=== PATIENT | female | born 1940 | race Caucasian/White ===

== ENCOUNTER → 2017-07-14 | Outpatient (POV) | payer MEDICARE, BC, OTHER, SELFPAY | PROVIDERS: Visit Provider Internal Medicine | DX: I48.2 Chronic atrial fibrillation (principal); I10 Essential (primary) hypertension; R25.2 Cramp and spasm | CPT/HCPCS: 93005 ==

== ENCOUNTER → 2017-07-15 | Outpatient (CLI) | payer MEDICARE, OTHER, SELFPAY | PROVIDERS: Visit Provider Internal Medicine | DX: I48.0 Paroxysmal atrial fibrillation (principal); I10 Essential (primary) hypertension; R25.2 Cramp and spasm | CPT/HCPCS: 36415; 80048 ==

== ENCOUNTER 2017-07-31 08:24 | Outpatient (CLI) | payer MEDICARE, OTHER, SELFPAY ==
[2017-07-31 13:49] LABS: PHA INR Fingerstick 2.6 (0.9-1.1)
== END 2017-07-31 13:56 | disposition home or self-care (01) ==
LOC: ACC 08:31
PROVIDERS: PCP Internal Medicine Adolescent Medicine; Visit Provider Internal Medicine Cardiovascular Disease
DX: Z79.01 Long term (current) use of anticoagulants (principal); I48.91 Unspecified atrial fibrillation; Z51.81 Encounter for therapeutic drug level monitoring
CPT/HCPCS: 85610

== ENCOUNTER → 2017-09-11 08:18 | Outpatient (CLI) | payer MEDICARE, OTHER, SELFPAY | END | disposition home or self-care (01) | PROVIDERS: PCP Internal Medicine Adolescent Medicine; Visit Provider Internal Medicine Cardiovascular Disease | DX: Z79.01 Long term (current) use of anticoagulants (principal); Z51.81 Encounter for therapeutic drug level monitoring; I48.91 Unspecified atrial fibrillation | CPT/HCPCS: 85610 ==

== ENCOUNTER → 2017-10-03 07:53 | Outpatient (CLI) | payer MEDICARE, OTHER, SELFPAY ==
[2017-10-03 09:20] LABS: Alanine Aminotransferase 27 U/L (12-78); Potassium 4.2 mmoL/L (3.5-5.1); Thyroid Stimulating Hormone 0.42 uIU/ml (0.358-3.740)
[2017-10-03 09:34] LABS: Albumin Level 4.1 gm/dL (3.4-5.0); Albumin/Globulin Ratio 1.2 (1.1-1.8); Alkaline Phosphatase 30 U/L (46-116); Anion Gap 12.2 mEq/L (5-15); Aspartate Amino Transferase 28 U/L (15-37); Bilirubin,Total 0.3 mg/dL (0.2-1.0); Blood Urea Nitrogen 17 mg/dL (7-18); Calcium 9.4 mg/dL (8.5-10.1); Carbon Dioxide 28 mmol/L (21.0-32.0); Chloride 103 mmol/L (98-107); Chol/HDL Ratio 3.7 (1-3.5); Cholesterol 146 mg/dL (140-200); Creatinine,Serum 1.22 mg/dL (0.55-1.02); Estimated Glomerular Filt Rate 43 ml/min (>60); GFR (African American) 52 ML/MIN (>60); Globulin 3.5 gm/dl (1.3-3.2); Glucose 88 mg/dL (74-106); HDL Cholesterol 39 mg/dL (29-89); LDL Cholesterol 85 mg/dL (0-130); Sodium 139 mmol/L (136-145); Total Protein,Serum 7.6 gm/dL (6.4-8.2); Triglycerides 109 mg/dL (30-200); VLDL Cholesterol 22 mg/dL (0-40)
== END ==
PROVIDERS: Visit Provider Internal Medicine Adolescent Medicine
DX: E78.5 Hyperlipidemia, unspecified (principal); E03.9 Hypothyroidism, unspecified
CPT/HCPCS: 36415; 80053; 80061; 84443

== ENCOUNTER 2017-10-16 08:22 | Outpatient (CLI) | payer MEDICARE, OTHER, SELFPAY ==
[2017-10-16 10:49] LABS: PHA INR Fingerstick 1.9 (0.9-1.1)
== END 2017-10-16 10:50 | disposition home or self-care (01) ==
PROVIDERS: PCP Internal Medicine Adolescent Medicine; Visit Provider Internal Medicine Cardiovascular Disease
DX: Z79.01 Long term (current) use of anticoagulants (principal); Z51.81 Encounter for therapeutic drug level monitoring; I48.91 Unspecified atrial fibrillation
CPT/HCPCS: 85610; 99211; G0463

== ENCOUNTER 2017-11-13 08:22 | Outpatient (CLI) | payer MEDICARE, OTHER, SELFPAY ==
[2017-11-13 11:46] LABS: PHA INR Fingerstick 2.1 (0.9-1.1)
== END 2017-11-13 11:50 | disposition home or self-care (01) ==
LOC: ACC 08:23
PROVIDERS: PCP Internal Medicine Adolescent Medicine; Visit Provider Physician Assistant
DX: Z79.01 Long term (current) use of anticoagulants (principal); Z51.81 Encounter for therapeutic drug level monitoring; I48.91 Unspecified atrial fibrillation
CPT/HCPCS: 85610; 99211; G0463

== ENCOUNTER 2017-12-25 08:21 | Outpatient (CLI) | payer MEDICARE, OTHER, SELFPAY ==
[2017-12-25 11:18] LABS: PHA INR Fingerstick 2.5 (0.9-1.1)
== END 2017-12-25 13:04 | disposition home or self-care (01) ==
LOC: ACC 08:25
PROVIDERS: PCP Internal Medicine Adolescent Medicine; Visit Provider Physician Assistant
DX: Z79.01 Long term (current) use of anticoagulants (principal); Z51.81 Encounter for therapeutic drug level monitoring; I48.91 Unspecified atrial fibrillation
CPT/HCPCS: 85610; 99211; G0463

== ENCOUNTER 2018-02-05 08:32 | Outpatient (CLI) | payer MEDICARE, OTHER, SELFPAY ==
[2018-02-05 16:31] LABS: PHA INR Fingerstick 2.2 (0.9-1.1)
== END 2018-02-05 16:51 | disposition home or self-care (01) ==
LOC: ACC 08:34
PROVIDERS: PCP Internal Medicine Adolescent Medicine; Visit Provider Physician Assistant
DX: Z79.01 Long term (current) use of anticoagulants (principal); Z51.81 Encounter for therapeutic drug level monitoring; I48.2 Chronic atrial fibrillation
CPT/HCPCS: 85610; 99211; G0463

== ENCOUNTER 2018-03-19 08:23 | Outpatient (CLI) | payer MEDICARE, OTHER, SELFPAY ==
[2018-03-19 10:57] LABS: PHA INR Fingerstick 2.2 (0.9-1.1)
== END 2018-03-19 11:16 | disposition home or self-care (01) ==
LOC: ACC 08:24
PROVIDERS: PCP Internal Medicine Adolescent Medicine; Visit Provider Internal Medicine Adolescent Medicine
DX: Z79.01 Long term (current) use of anticoagulants (principal); Z51.81 Encounter for therapeutic drug level monitoring; I48.91 Unspecified atrial fibrillation
CPT/HCPCS: 85610; 99211; G0463

== ENCOUNTER → 2018-04-01 07:44 | Outpatient (CLI) | payer MEDICARE, OTHER, SELFPAY ==
--- NOTE | 2018-04-01 07:47 | US_ITS ---
US abdomen complete HISTORY: ITS.REASON: CAPUT MEDUSAE ORDERING PHYSICIAN: Dillon Mcmahan MD PATIENT AGE: 78 years COMPARISON: No relevant FINDINGS: PANCREAS:Unremarkable. No mass evident.. No ductal dilatation LIVER:No focal liver lesions demonstrated. . The liver is generous size, perhaps slightly enlarged but homogeneous with mild diffuse upper normal echogenicity-May reflect some early fatty changes. No intrahepatic biliary ductal dilatation evident . Portal vein normal diameter. With normal direction flow. Common duct normal diameter 3.5 mm at hilum of liver. RIGHT KIDNEY 9.4 x 4.4 cm:.. Normal size and echogenicity. No hydronephrosis LEFT KIDNEY:10 cm length. No hydronephrosis. Normal size and echogenicity. Cortex fairly well-maintained in both kidneys with only borderline thinning GALLBLADDER:Surgically absent. SPLEEN:Normal size in appearance. 10 cm length.. ASCITES:None demonstrated. AORTA: Atherosclerotic calcification & atheromatous plaque but No evidence of aneurysmal dilatation. ABNORMAL Multiple Dilated Venous Structure/Varicosities ,just beneath the skin throughout anterior abdominal SQ tissue.-Compatible with caput medusa history. Largest of these measuring up to 5.5 mm diameter This pattern typically associated with portal hypertension but I do not see a dilated portal vein, nor splenomegaly, nor obvious portal venous collaterals about the liver/spleen region on the submitted images;, nor did the technologist MW during real-time scanning. The liver is perhaps slightly enlarged but homogeneous with upper normal echogenicity. A much less common causes of caput medusa is inferior vena cava restriction or obstruction but no history lower extremity swelling given to suggest latter. . A CT abdomen with 100 cc Isovue-370 contrast and 2 minute & if need be 5 minute delayed images may be of benefit to further evaluate. These appear evaluate liver, spleen and survey pattern IMPRESSION: Prominent dilated venous structures just beneath the skin at the anterior abdominal wall compatible with caput medusa. However the portal vein is normal caliber at liver, spleen normal size & no obvious portal venous collaterals observed with real-time scanning. Note comments in text The liver is generous in size, mildly enlarged but homogeneous. Slight diffuse increased echogenicity suggestive mild diffuse fatty change . No ascites Suggest CT abdomen/pelvis with contrast to include delayed images at 3 minutes, & possibly 5 minutes (the goal for this CT is enhance these dilated superficial venous structures/ caput medusa. More importantly to enhance & visualized portal vein, liver, & IVC)
== END ==
PROVIDERS: PCP Internal Medicine Adolescent Medicine; Visit Provider Internal Medicine Adolescent Medicine
DX: I86.8 Varicose veins of other specified sites (principal)
CPT/HCPCS: 76700

== ENCOUNTER 2018-04-23 08:14 | Outpatient (CLI) | payer MEDICARE, OTHER, SELFPAY ==
[2018-04-23 10:42] LABS: PHA INR Fingerstick 2.1 (0.9-1.1)
== END 2018-04-23 10:43 | disposition home or self-care (01) ==
LOC: ACC 08:16
PROVIDERS: PCP Internal Medicine Adolescent Medicine; Visit Provider Internal Medicine Adolescent Medicine
DX: Z51.81 Encounter for therapeutic drug level monitoring (principal); Z79.01 Long term (current) use of anticoagulants; I48.91 Unspecified atrial fibrillation
CPT/HCPCS: 85610; 99211; G0463

== ENCOUNTER 2018-06-04 08:20 | Outpatient (CLI) | payer MEDICARE, OTHER, SELFPAY ==
[2018-06-04 13:26] LABS: PHA INR Fingerstick 2.5 (0.9-1.1)
== END 2018-06-04 16:07 | disposition home or self-care (01) ==
PROVIDERS: PCP Internal Medicine Adolescent Medicine; Visit Provider Internal Medicine Adolescent Medicine
DX: Z51.81 Encounter for therapeutic drug level monitoring (principal); Z79.01 Long term (current) use of anticoagulants; I48.91 Unspecified atrial fibrillation
CPT/HCPCS: 85610; 99211; G0463

== ENCOUNTER → 2018-07-15 07:24 | Outpatient (CLI) | payer MEDICARE, OTHER, SELFPAY ==
[2018-07-15 08:06] LABS: Basophils # 0.1 K/mm3 (0-0.2); Basophils % 0.6 % (0.1-2.0); Eosinophils # 0.4 K/mm3 (0.0-0.4); Eosinophils % 4.7 % (0.1-12.0); Hematocrit 42.1 % (37.0-47.0); Hemoglobin 13.6 g/dL (12.2-16.2); Lymphocytes # 1.9 K/mm3 (0.7-4.5); Lymphocytes % 23.9 % (10-50); Mean Corpuscular HGB Conc 32.3 g/dL (31.8-35.4); Mean Corpuscular Volume 92.7 fl (81-99); Mean Platelet Volume 7.3 fl (7.4-10.4); Monocytes # 0.5 K/mm3 (0.1-1.0); Monocytes % 5.7 % (1.7-9.3); Neutrophils # 5.2 K/mm3 (1.8-7.8); Neutrophils % 64.9 % (37.0-80.0); Platelet Count 279 K/mm3 (142-424); Red Blood Count 4.55 M/mm3 (4.20-5.40); Red Cell Distribution Width 13.1 % (11.5-17.5)
[2018-07-15 08:23] LABS: Alanine Aminotransferase 26 U/L (12-78); Albumin Level 4.1 gm/dL (3.4-5.0); Albumin/Globulin Ratio 1.2 (1.1-1.8); Alkaline Phosphatase 32 U/L (46-116); Anion Gap 12.2 mEq/L (5-15); Aspartate Amino Transferase 27 U/L (15-37); Bilirubin,Total 0.4 mg/dL (0.2-1.0); Blood Urea Nitrogen 16 mg/dL (7-18); Calcium 9.4 mg/dL (8.5-10.1); Carbon Dioxide 32 mmol/L (21.0-32.0); Chloride 104 mmol/L (98-107); Creatinine,Serum 1.27 mg/dL (0.55-1.02); Estimated Glomerular Filt Rate 41 ml/min (>60); GFR (African American) 49 ML/MIN (>60); Globulin 3.4 gm/dl (1.3-3.2); Glucose 104 mg/dL (74-106); Potassium 4.2 mmoL/L (3.5-5.1); Sodium 144 mmol/L (136-145); T4 (Thyroxine) 13.5 ug/dl (4.7-13.3); Thyroid Stimulating Hormone 0.64 uIU/ml (0.358-3.740); Total Protein,Serum 7.5 gm/dL (6.4-8.2); Triiodothryronine (T3) Uptake 37 % (31-39)
[2018-07-16 16:17] LABS: Vitamin B12 594 pg/mL (232-1245); Vitamin D 25 Hydroxy 37.9 ng/mL (30.0-100.0)
[2018-07-22 05:19] LABS: Methylmalonic Acid 854 nmol/L (0-378)
== END ==
PROVIDERS: Visit Provider Internal Medicine Adolescent Medicine
DX: E03.9 Hypothyroidism, unspecified (principal); R53.81 Other malaise; R41.3 Other amnesia; I48.91 Unspecified atrial fibrillation
CPT/HCPCS: 36415; 80053; 82131; 82607; 82652; 84436; 84443; 84479; 85025

== ENCOUNTER 2018-07-16 08:29 | Outpatient (CLI) | payer MEDICARE, OTHER, SELFPAY ==
[2018-07-16 10:27] LABS: PHA INR Fingerstick 2.5 (0.9-1.1)
== END 2018-07-16 10:54 | disposition home or self-care (01) ==
LOC: ACC 08:30
PROVIDERS: PCP Internal Medicine Adolescent Medicine; Visit Provider Internal Medicine Adolescent Medicine
DX: Z51.81 Encounter for therapeutic drug level monitoring (principal); Z79.01 Long term (current) use of anticoagulants; I48.91 Unspecified atrial fibrillation
CPT/HCPCS: 85610; 99211; G0463

== ENCOUNTER 2018-08-06 08:20 | Outpatient (CLI) | payer MEDICARE, OTHER, SELFPAY ==
[2018-08-06 09:35] LABS: PHA INR Fingerstick 2.1 (0.9-1.1)
== END 2018-08-06 09:36 | disposition home or self-care (01) ==
LOC: ACC 08:22
PROVIDERS: PCP Internal Medicine Adolescent Medicine; Visit Provider Internal Medicine Adolescent Medicine
DX: Z51.81 Encounter for therapeutic drug level monitoring (principal); Z79.01 Long term (current) use of anticoagulants; I48.91 Unspecified atrial fibrillation
CPT/HCPCS: 85610; 99211; G0463

== ENCOUNTER 2018-09-17 08:27 | Outpatient (CLI) | payer MEDICARE, OTHER, SELFPAY ==
[2018-09-17 16:04] LABS: PHA INR Fingerstick 1.6 (0.9-1.1)
== END 2018-09-17 16:09 | disposition home or self-care (01) ==
LOC: ACC 08:29
PROVIDERS: PCP Internal Medicine Adolescent Medicine; Visit Provider Internal Medicine Adolescent Medicine
DX: Z51.81 Encounter for therapeutic drug level monitoring (principal); Z79.01 Long term (current) use of anticoagulants; I48.91 Unspecified atrial fibrillation
CPT/HCPCS: 85610; 99211; G0463

== ENCOUNTER → 2018-09-21 12:33 | Outpatient (CLI) | payer MEDICARE, OTHER, SELFPAY ==
[2018-09-21 13:33] LABS: Anion Gap 12.1 mEq/L (5-15); Blood Urea Nitrogen 16 mg/dL (7-18); Calcium 9.6 mg/dL (8.5-10.1); Carbon Dioxide 30 mmol/L (21.0-32.0); Chloride 104 mmol/L (98-107); Creatinine,Serum 1.26 mg/dL (0.55-1.02); Estimated Glomerular Filt Rate 41 ml/min (>60); GFR (African American) 50 ML/MIN (>60); Glucose 81 mg/dL (74-106); Potassium 4.1 mmoL/L (3.5-5.1); Sodium 142 mmol/L (136-145)
== END ==
PROVIDERS: Visit Provider Urology
DX: I10 Essential (primary) hypertension (principal); I48.2 Chronic atrial fibrillation; Z95.810 Presence of automatic (implantable) cardiac defibrillator
CPT/HCPCS: 36415; 80048

== ENCOUNTER 2018-10-01 08:28 | Outpatient (CLI) | payer MEDICARE, OTHER, SELFPAY ==
[2018-10-01 16:02] LABS: PHA INR Fingerstick 1.8 (0.9-1.1)
== END 2018-10-01 16:05 | disposition home or self-care (01) ==
LOC: ACC 08:30
PROVIDERS: PCP Internal Medicine Adolescent Medicine; Visit Provider Internal Medicine Adolescent Medicine
DX: Z51.81 Encounter for therapeutic drug level monitoring (principal); Z79.01 Long term (current) use of anticoagulants; I48.91 Unspecified atrial fibrillation
CPT/HCPCS: 85610; 99211; G0463

== ENCOUNTER 2018-10-15 08:18 | Outpatient (CLI) | payer MEDICARE, OTHER, SELFPAY ==
[2018-10-15 13:57] LABS: PHA INR Fingerstick 1.5 (0.9-1.1)
== END 2018-10-15 14:09 | disposition home or self-care (01) ==
LOC: ACC 08:18
PROVIDERS: PCP Internal Medicine Adolescent Medicine; Visit Provider Internal Medicine Adolescent Medicine
DX: Z51.81 Encounter for therapeutic drug level monitoring (principal); Z79.01 Long term (current) use of anticoagulants; I48.91 Unspecified atrial fibrillation
CPT/HCPCS: 85610; 99211; G0463

== ENCOUNTER → 2018-10-28 15:07 | Outpatient (CLI) | payer MEDICARE, OTHER, SELFPAY ==
[2018-10-28 17:56] LABS: Anion Gap 12.9 mEq/L (5-15); Blood Urea Nitrogen 19 mg/dL (7-18); Calcium 9.8 mg/dL (8.5-10.1); Carbon Dioxide 30 mmol/L (21.0-32.0); Chloride 103 mmol/L (98-107); Creatinine,Serum 1.39 mg/dL (0.55-1.02); Estimated Glomerular Filt Rate 37 ml/min (>60); GFR (African American) 44 ML/MIN (>60); Glucose 74 mg/dL (74-106); Potassium 4.9 mmoL/L (3.5-5.1); Sodium 141 mmol/L (136-145)
== END ==
PROVIDERS: Visit Provider Nurse Practitioner Family
DX: E78.5 Hyperlipidemia, unspecified (principal); I10 Essential (primary) hypertension; I48.2 Chronic atrial fibrillation; L76.82 Other postprocedural complications of skin and subcutaneous tissue; R60.9 Edema, unspecified; T81.89XA Other complications of procedures, not elsewhere classified, initial encounter; Z45.02 Encounter for adjustment and management of automatic implantable cardiac defibrillator; Z79.01 Long term (current) use of anticoagulants; Z95.810 Presence of automatic (implantable) cardiac defibrillator
CPT/HCPCS: 36415; 80048

== ENCOUNTER 2018-10-29 08:22 | Outpatient (CLI) | payer MEDICARE, OTHER, SELFPAY | END 2018-10-29 13:46 | disposition home or self-care (01) | LOC: ACC 08:23 | PROVIDERS: PCP Internal Medicine Adolescent Medicine; Visit Provider Internal Medicine Adolescent Medicine | DX: Z51.81 Encounter for therapeutic drug level monitoring (principal); Z79.01 Long term (current) use of anticoagulants; I48.91 Unspecified atrial fibrillation | CPT/HCPCS: 85610; 99211; G0463 ==

== ENCOUNTER 2018-11-11 08:30 | Outpatient (CLI) | payer MEDICARE, OTHER, SELFPAY ==
[2018-11-11 13:32] LABS: PHA INR Fingerstick 2.6 (0.9-1.1)
== END 2018-11-11 13:48 | disposition home or self-care (01) ==
LOC: ACC 08:31
PROVIDERS: PCP Internal Medicine Adolescent Medicine; Visit Provider Internal Medicine Adolescent Medicine
DX: Z51.81 Encounter for therapeutic drug level monitoring (principal); Z79.01 Long term (current) use of anticoagulants; I48.91 Unspecified atrial fibrillation
CPT/HCPCS: 85610; 99211; G0463

== ENCOUNTER → 2018-12-08 09:33 | Outpatient (CLI) | payer MEDICARE, OTHER, SELFPAY ==
[2018-12-08 09:37] LABS: Adenovirus F 40/41, stool Not Detected (NotDetected); Astrovirus Not Detected (NotDetected); Campylobacter Not Detected (NotDetected); Clostridium Difficile A/B, PCR Not Detected (NotDetected); Cryptosporidium Not Detected (NotDetected); Cyclospora Cayetanesis Not Detected (NotDetected); Entamoeba histolytica Not Detected (NotDetected); Enteroaggregative E coli Not Detected (NotDetected); Enteropathogenic E coli Not Detected (NotDetected); Enterotoxigenic E coli Not Detected (NotDetected); Giardia lamblia Not Detected (NotDetected); Norovirus Not Detected (NotDetected); Plesimonas Shigalloides, PCR Not Detected (NotDetected); Rotavirus A Not Detected (NotDetected); Salmonella, PCR Not Detected (NotDetected); Shiga-like toxin E coli Not Detected (NotDetected); Shigella Enterovasive E coli Not Detected (NotDetected); Vibrio Cholerae Not Detected (NotDetected); Vibrio, PCR Not Detected (NotDetected); Yersinia Entercolitica, PCR Not Detected (NotDetected)
[2018-12-08 13:32] LABS: Sapovirus Detected (NotDetected)
== END ==
PROVIDERS: Visit Provider Internal Medicine
DX: E78.5 Hyperlipidemia, unspecified (principal); I10 Essential (primary) hypertension; I48.2 Chronic atrial fibrillation; T81.89XA Other complications of procedures, not elsewhere classified, initial encounter; Z79.01 Long term (current) use of anticoagulants; Z95.810 Presence of automatic (implantable) cardiac defibrillator; Z51.81 Encounter for therapeutic drug level monitoring; A08.2 Adenoviral enteritis
CPT/HCPCS: 87506

== ENCOUNTER 2018-12-10 08:27 | Outpatient (CLI) | payer MEDICARE, OTHER, SELFPAY ==
[2018-12-10 10:53] LABS: PHA INR Fingerstick 1.9 (0.9-1.1)
== END 2018-12-10 11:02 | disposition home or self-care (01) ==
LOC: ACC 08:28
PROVIDERS: PCP Internal Medicine Adolescent Medicine; Visit Provider Internal Medicine Adolescent Medicine
DX: Z51.81 Encounter for therapeutic drug level monitoring (principal); Z79.01 Long term (current) use of anticoagulants; I48.91 Unspecified atrial fibrillation
CPT/HCPCS: 85610; 99211; G0463

== ENCOUNTER 2019-01-07 08:32 | Outpatient (CLI) | payer MEDICARE, OTHER, SELFPAY | END 2019-01-07 11:22 | disposition home or self-care (01) | LOC: ACC 08:35 | PROVIDERS: PCP Internal Medicine Adolescent Medicine; Visit Provider Internal Medicine Adolescent Medicine | DX: Z51.81 Encounter for therapeutic drug level monitoring (principal); Z79.01 Long term (current) use of anticoagulants | CPT/HCPCS: 85610; 99211; G0463 ==

== ENCOUNTER 2019-02-04 08:34 | Outpatient (CLI) | payer MEDICARE, OTHER, SELFPAY ==
[2019-02-04 15:21] LABS: PHA INR Fingerstick 1.9 (0.9-1.1)
== END 2019-02-04 15:22 | disposition home or self-care (01) ==
LOC: ACC 08:35
PROVIDERS: PCP Internal Medicine Adolescent Medicine; Visit Provider Internal Medicine Adolescent Medicine
DX: Z51.81 Encounter for therapeutic drug level monitoring (principal); Z79.01 Long term (current) use of anticoagulants; I48.91 Unspecified atrial fibrillation
CPT/HCPCS: 85610; 99211; G0463

== ENCOUNTER 2019-03-04 08:16 | Outpatient (CLI) | payer MEDICARE, OTHER, SELFPAY ==
[2019-03-04 15:00] LABS: PHA INR Fingerstick 1.8 (0.9-1.1)
== END 2019-03-04 15:10 | disposition home or self-care (01) ==
LOC: ACC 08:18
PROVIDERS: PCP Internal Medicine Adolescent Medicine; Visit Provider Internal Medicine Adolescent Medicine
DX: Z51.81 Encounter for therapeutic drug level monitoring (principal); Z79.01 Long term (current) use of anticoagulants; I48.91 Unspecified atrial fibrillation
CPT/HCPCS: 85610; 99211; G0463

== ENCOUNTER 2019-03-11 08:37 | Outpatient (CLI) | payer MEDICARE, OTHER, SELFPAY | END 2019-03-11 11:41 | disposition home or self-care (01) | LOC: ACC 08:40 | PROVIDERS: PCP Internal Medicine Adolescent Medicine; Visit Provider Internal Medicine | DX: Z51.81 Encounter for therapeutic drug level monitoring (principal); Z79.01 Long term (current) use of anticoagulants; I48.91 Unspecified atrial fibrillation | CPT/HCPCS: 85610; 99211; G0463 ==

== ENCOUNTER 2019-04-08 08:24 | Outpatient (CLI) | payer MEDICARE, OTHER, SELFPAY ==
[2019-04-08 13:47] LABS: PHA INR Fingerstick 1.9 (0.9-1.1)
== END 2019-04-08 13:48 | disposition home or self-care (01) ==
LOC: ACC 08:25
PROVIDERS: PCP Internal Medicine Adolescent Medicine; Visit Provider Internal Medicine Adolescent Medicine
DX: Z51.81 Encounter for therapeutic drug level monitoring (principal); Z79.01 Long term (current) use of anticoagulants; I48.91 Unspecified atrial fibrillation
CPT/HCPCS: 85610; 99211; G0463

== ENCOUNTER 2019-05-05 10:59 | Outpatient (CLI) | payer MEDICARE, OTHER, SELFPAY ==
[2019-05-05 13:55] LABS: PHA INR Fingerstick 1.9 (0.9-1.1)
== END 2019-05-05 14:09 | disposition home or self-care (01) ==
LOC: ACC 11:00
PROVIDERS: PCP Internal Medicine Adolescent Medicine; Visit Provider Internal Medicine Adolescent Medicine
DX: Z51.81 Encounter for therapeutic drug level monitoring (principal); Z79.01 Long term (current) use of anticoagulants; I48.91 Unspecified atrial fibrillation
CPT/HCPCS: 85610; 99211; G0463

== ENCOUNTER 2019-06-17 08:29 | Outpatient (CLI) | payer MEDICARE, OTHER, SELFPAY | END 2019-06-17 09:52 | disposition home or self-care (01) | LOC: ACC 08:32 | PROVIDERS: PCP Internal Medicine Adolescent Medicine; Visit Provider Internal Medicine Adolescent Medicine | DX: Z51.81 Encounter for therapeutic drug level monitoring (principal); Z79.01 Long term (current) use of anticoagulants; I48.91 Unspecified atrial fibrillation | CPT/HCPCS: 85610; 99211; G0463 ==

== ENCOUNTER → 2019-06-20 13:26 | Outpatient (CLI) | payer MEDICARE, OTHER, SELFPAY ==
--- NOTE | 2019-06-20 13:34 | XR_ITS ---
PROCEDURE: XR CHEST 2V CLINICAL HISTORY: COUGH Cough, previous smoker, heart disease COMPARISON: [facility] CT CHEST W/O CONTRAST from 12/29/2013 CXR CHEST(2 VIEWS-NOT PORTABLE) from 10/11/2016 [id number] XR chest portable from 10/11/2018 XR CHEST 2V from 03/08/2019 FINDINGS: Prior CABG. Normal heart size. There is increased soft tissue density in the right paratracheal region. This has been present on multiple previous exams consistent with ectasia the overlying vasculature. No acute bony abnormalities. IMPRESSION: No acute findings. Dictated by: Mitchel Ramires MD 06/20/2019 18:55 Electronically signed by Mitchel Ramires MD in [place] 06/20/2019 18:55
== END ==
PROVIDERS: PCP Internal Medicine Adolescent Medicine; Visit Provider Internal Medicine Adolescent Medicine
DX: R05 Cough (principal)
CPT/HCPCS: 71046

== ENCOUNTER 2019-09-13 14:27 | Outpatient (CLI) | payer MEDICARE, OTHER, SELFPAY | END 2019-09-13 15:30 | disposition home or self-care (01) | PROVIDERS: PCP Internal Medicine Adolescent Medicine; Visit Provider Internal Medicine Adolescent Medicine | DX: Z51.81 Encounter for therapeutic drug level monitoring (principal); Z79.01 Long term (current) use of anticoagulants; I48.91 Unspecified atrial fibrillation | CPT/HCPCS: 85610; 99211; G0463 ==

== ENCOUNTER 2019-11-07 08:59 | Outpatient (CLI) | payer MEDICARE, OTHER, SELFPAY ==
[2019-11-07 11:25] LABS: PHA INR Fingerstick 1.6 (0.9-1.1)
== END 2019-11-07 11:26 | disposition home or self-care (01) ==
LOC: ACC 09:00
PROVIDERS: PCP Internal Medicine Adolescent Medicine; Visit Provider Internal Medicine Adolescent Medicine
DX: Z51.81 Encounter for therapeutic drug level monitoring (principal); Z79.01 Long term (current) use of anticoagulants; I48.91 Unspecified atrial fibrillation
CPT/HCPCS: 85610; 99211; G0463

== ENCOUNTER 2019-12-07 08:54 | Outpatient (CLI) | payer MEDICARE, OTHER, SELFPAY ==
[2019-12-07 15:53] LABS: PHA INR Fingerstick 1.8 (0.9-1.1)
== END 2019-12-07 16:07 | disposition home or self-care (01) ==
LOC: ACC 08:55
PROVIDERS: PCP Internal Medicine Adolescent Medicine; Visit Provider Internal Medicine
DX: Z51.81 Encounter for therapeutic drug level monitoring (principal); Z79.01 Long term (current) use of anticoagulants
CPT/HCPCS: 85610; 99211; G0463

== ENCOUNTER 2020-01-04 08:53 | Outpatient (CLI) | payer MEDICARE, OTHER, SELFPAY ==
[2020-01-04 09:44] LABS: PHA INR Fingerstick 1.6 (0.9-1.1)
== END 2020-01-04 09:46 | disposition home or self-care (01) ==
LOC: ACC 08:54
PROVIDERS: PCP Internal Medicine Adolescent Medicine; Visit Provider Internal Medicine Adolescent Medicine
DX: Z51.81 Encounter for therapeutic drug level monitoring (principal); Z79.01 Long term (current) use of anticoagulants; I48.91 Unspecified atrial fibrillation
CPT/HCPCS: 85610; 99211; G0463

== ENCOUNTER → 2020-02-24 09:58 | Outpatient (CLI) | payer MEDICARE, OTHER, SELFPAY ==
--- NOTE | 2020-02-24 10:01 | CA_ITS ---
APPROVED REPORT EXAM: Comprehensive 2D, Doppler, and color-flow Echocardiogram Manager Sales: Elvira Camejo RDCS Ht: 5 ft 3 in Wt: 149lbs BSA: 1.71 BP: 128/86 mmHg Indications: CP,ASD REPAIRED, CHRONIC AF,SOA, BUBBLE STUDY DONE 2D Dimensions LVOT 1.51 cm (M/F) 1.5-2.5 M-Mode Dimensions RVDd 3.16 cm (0.9-2.6) LVDd 4.68 cm (3.5-5.7) LVDs 3.75 cm (3.5-5.7) IVSd 0.77 cm (0.6-1.1) PWd 0.70 cm (0.6-1.1) EF (Teich) 40.80% FS 19.90% EDV (Teich) 101.30 mL ESV (Teich) 60.00 mL LV Diastology E/A Ratio 4.02 Mitral Valve MV A Velocity 16.00 (40-130 cm/s) Left Ventricle Left atrium is moderately enlarged, left ventricle is normal size, there is no concentric left ventricular hypertrophy, visually estimated ejection fraction 55% with no regional wall motion abnormality. Diastolic parameters are inconclusive Right Ventricle Right atrium is moderately enlarged, right ventricle is mildly dilated with normal contractility. Atria Intra-atrial septum appears to be intact, agitated saline contrast reveals 25 intracardiac shunt. Patient has history of ASD repair. Aortic Valve Aortic valve is thickened and calcified, there is no aortic stenosis or aortic insufficiency. Mitral Valve Mitral valve leaflets are minimally thickened, mitral inflow velocities not suggestive of mitral stenosis, there is mild mitral regurgitation. Tricuspid Valve Tricuspid valve leaflets are minimally thickened, there is no tricuspid stenosis, there is moderate tricuspid regurgitation. Calculated right ventricular systolic pressure 35 mmHg. Pulmonic Valve Pulmonic valve is poorly visualized. Great Vessels Aortic root is normal size. Pericardium No significant pericardial effusion noted. Conclusion 1. Biatrial enlargement, normal left ventricular size, visually estimated ejection fraction 55% with no regional wall motion abnormality, diastolic parameters are inconclusive. 2. Patient has history of ASD repair, there is no flow across the interatrial septum, agitated saline contrast study fails to identify intracardiac shunt. 3. Mild mitral and moderate tricuspid regurgitation, calculated right ventricular systolic pressure 35 mmHg. 4. Right ventricle is mildly enlarged with normal contractility. 5. No significant pericardial effusion noted. Electronically signed by : Craig Paredes, 02/24/2020 13:28:06
--- NOTE | 2020-02-24 10:52 | NM_ITS ---
APPROVED REPORT Exam: Nuclear Stress Test Indication: CHEST PAIN..SHORT OF BREATH..FATIGUE Patient Location: 3 Stress Tech: Chasity Pollard NM Tech:KARAN Nicole RT(R)(N) Ht: 5 ft 3 in Wt: 145 lbs Bra Size: 34A HR: 56 bpm BP: 156/84 mmHg BSA: 1.69 m2 BMI: 25.6 History: CHEST PAIN..SHORT OF BREATH..FATIGUE5 Procedure: Patient received a 0.4 mg of intravenous Lexiscan, resting heart rate 56 bpm, resting blood pressure 156/84 mmHg, with Lexiscan maximum heart rate achived was 99 bpm which is Less than 85 % of the maximum predicted heart rate and blood pressure was 151/63 mmHg. With Lexiscan, patient denied any complaint of chest pain. Electrocardiogram Resting electrocardiogram shows atrial fibrillation, with Lexiscan there is less than 1.[address] segment depression noted from the baseline EKG. The EKG portion of the Lexiscan is nondiagnostic. Cardiac Stress and Resting SPECT Images: Cardiac Stress and Resting SPECT images were obtained using technetium 99m Myoview 32.8 mCi stress and 10.77 mCi at rest. Gated SPECT with analysis of segmental wall motion and calculation of the ejection fraction also done. Cardiac stress and resting SPECT images show a fixed defect anteroseptally with normal nathalie gated SPECT is likely secondary to soft tissue attenuation, no reversible ischemia seen, computer derived ejection fraction is 60% with no regional wall motion abnormality, right ventricle is normal size and contractility. Conclusion: 1. The EKG portion of the Lexiscan Myoview is nondiagnostic. 2. No scintigraphic evidence of reversible ischemia seen, computer derived ejection fraction is 60% with no regional wall motion abnormality, right ventricle is normal size and contractility. 3. Likely normal Lexiscan Myoview study. Electronically signed by : Craig Paredes, 02/24/2020 13:49:31
--- NOTE | 2020-02-24 13:24 | HMH.ITSHM ---
Current Home Medications as stated by this patient Frannie Pedersen or pharmaceutical specialty representative. [] SYNTHROID TOPROL ALENDRONTE SPIRONOLACTONE ARICEPT
== END ==
PROVIDERS: PCP Internal Medicine Adolescent Medicine; Visit Provider Nurse Practitioner Family
DX: E78.5 Hyperlipidemia, unspecified (principal); I10 Essential (primary) hypertension; I48.20 Chronic atrial fibrillation, unspecified; R07.9 Chest pain, unspecified; Z79.01 Long term (current) use of anticoagulants
CPT/HCPCS: 78452; 93017; 93306; A9502; J2785

== ENCOUNTER → 2020-03-13 08:49 | Outpatient (POV) | payer MEDICARE, OTHER, SELFPAY | PROVIDERS: Visit Provider Dermatology | DX: Z00.00 Encounter for general adult medical examination without abnormal findings (principal) ==

== ENCOUNTER 2020-03-21 10:22 | Outpatient (CLI) | payer MEDICARE, OTHER, SELFPAY ==
[2020-03-21 13:41] LABS: PHA INR Fingerstick 2.1 (0.9-1.1)
== END 2020-03-21 14:20 | disposition home or self-care (01) ==
LOC: ACC 10:26
PROVIDERS: PCP Internal Medicine Adolescent Medicine; Visit Provider Internal Medicine Adolescent Medicine
DX: Z51.81 Encounter for therapeutic drug level monitoring (principal); Z79.01 Long term (current) use of anticoagulants; I48.91 Unspecified atrial fibrillation
CPT/HCPCS: 85610; 99211; G0463

== ENCOUNTER 2020-05-02 10:24 | Outpatient (CLI) | payer MEDICARE, OTHER, SELFPAY ==
[2020-05-02 14:16] LABS: PHA INR Fingerstick 2.3 (0.9-1.1)
== END 2020-05-02 14:19 | disposition home or self-care (01) ==
LOC: ACC 10:25
PROVIDERS: PCP Internal Medicine Adolescent Medicine; Visit Provider Internal Medicine Adolescent Medicine
DX: Z51.81 Encounter for therapeutic drug level monitoring (principal); Z79.01 Long term (current) use of anticoagulants; I48.91 Unspecified atrial fibrillation
CPT/HCPCS: 85610; 99211; G0463

== ENCOUNTER → 2020-05-03 09:54 | Outpatient (CLI) | payer MEDICARE, OTHER, SELFPAY ==
--- NOTE | 2020-05-03 09:57 | MM_ITS ---
PROCEDURE: MM DIG SCREENING MAMM BI W/CAD Digital Breast Tomosynthesis Included CLINICAL INDICATION: SCREENING There is no personal or family history of breast cancer. There has been a previous biopsy left breast for benign disease. COMPARISON: CT CT ABDOMEN PELVIS WO CON from 03/08/2019, there are no previous mammograms available for review. TECHNIQUE: Standard CC and MLO images and 3D Tomosynthesis was obtained. R2 CAD reviewed. FINDINGS: Prominent somewhat heterogenic fibroglandular densities are seen in the central portions of both breast. There is minimal arterial calcification noted bilaterally. The somewhat striking finding is rather prominent draining veins in both breast more prominent left side than right. Suggest clinical correlation for history of chronic congestive heart failure. Also other considerations include venous obstruction and I would recommend a follow-up CT scan chest with IV contrast for additional evaluation. There are few benign-appearing microcalcifications in each breast. There is a biopsy clip left breast. There is no suspicious lesion and no suspicious microcalcifications. IMPRESSION: Moderate heterogenic breast density with no suspicious mammogram abnormality however see discussion above. BI-RAD Category: 2 Benign Finding(s) FOLLOW-UP: 1YR 1 Year Follow-up (A letter has been sent to the patient regarding results of the study.) Dictated by: Dr. Sean Posada MD 05/08/2020 10:27 Dr. Sean Posada MD in [place] 05/08/2020 10:27
== END ==
PROVIDERS: PCP Internal Medicine Adolescent Medicine; Visit Provider Internal Medicine Adolescent Medicine
DX: Z12.31 Encounter for screening mammogram for malignant neoplasm of breast (principal)
CPT/HCPCS: 77063; 77067

== ENCOUNTER 2020-06-06 08:59 | Outpatient (CLI) | payer MEDICARE, OTHER, SELFPAY ==
[2020-06-06 15:56] LABS: PHA INR Fingerstick 2.2 (0.9-1.1)
== END 2020-06-06 15:58 | disposition home or self-care (01) ==
LOC: ACC 09:02
PROVIDERS: PCP Internal Medicine Adolescent Medicine; Visit Provider Internal Medicine Adolescent Medicine
DX: Z51.81 Encounter for therapeutic drug level monitoring (principal); Z79.01 Long term (current) use of anticoagulants; I48.91 Unspecified atrial fibrillation
CPT/HCPCS: 85610; 99211; G0463

== ENCOUNTER 2020-07-11 09:28 | Outpatient (CLI) | payer MEDICARE, OTHER, SELFPAY ==
[2020-07-11 15:31] LABS: PHA INR Fingerstick 2.4 (0.9-1.1)
== END 2020-07-11 15:35 | disposition home or self-care (01) ==
LOC: ACC 09:30
PROVIDERS: PCP Internal Medicine Adolescent Medicine; Visit Provider Internal Medicine Adolescent Medicine
DX: Z51.81 Encounter for therapeutic drug level monitoring (principal); Z79.01 Long term (current) use of anticoagulants; I48.91 Unspecified atrial fibrillation
CPT/HCPCS: 85610; 99211; G0463

== ENCOUNTER 2020-08-15 09:28 | Outpatient (CLI) | payer MEDICARE, OTHER, SELFPAY ==
[2020-08-15 10:51] LABS: PHA INR Fingerstick 2.5 (0.9-1.1)
== END 2020-08-15 11:02 | disposition home or self-care (01) ==
LOC: ACC 09:31
PROVIDERS: PCP Internal Medicine Adolescent Medicine; Visit Provider Internal Medicine Adolescent Medicine
DX: Z51.81 Encounter for therapeutic drug level monitoring (principal); Z79.01 Long term (current) use of anticoagulants
CPT/HCPCS: 85610; 99211; G0463

== ENCOUNTER → 2020-08-28 10:13 | Outpatient (POV) | payer MEDICARE, OTHER, SELFPAY | PROVIDERS: Visit Provider Otolaryngology | DX: Z00.00 Encounter for general adult medical examination without abnormal findings (principal) ==

== ENCOUNTER 2020-09-26 09:32 | Outpatient (CLI) | payer MEDICARE, OTHER, SELFPAY ==
[2020-09-26 14:39] LABS: PHA INR Fingerstick 2.3 (0.9-1.1)
== END 2020-09-26 14:40 | disposition home or self-care (01) ==
LOC: ACC 09:33
PROVIDERS: PCP Emergency Medicine; Visit Provider Emergency Medicine
DX: Z51.81 Encounter for therapeutic drug level monitoring (principal); Z79.01 Long term (current) use of anticoagulants; I48.91 Unspecified atrial fibrillation
CPT/HCPCS: 85610; 99211; G0463

== ENCOUNTER → 2020-10-08 10:04 | Outpatient (CLI) | payer MEDICARE, OTHER, SELFPAY ==
[2020-10-08 10:37] LABS: Basophils # 0.1 K/mm3 (0-0.2); Basophils % 0.7 % (0.1-2.0); Eosinophils # 0.3 K/mm3 (0.0-0.4); Eosinophils % 4.5 % (0.1-12.0); Hemoglobin 12.8 g/dL (12.2-16.2); Lymphocytes # 1.6 K/mm3 (0.7-4.5); Lymphocytes % 21.9 % (10-50); Mean Corpuscular Hemoglobin 29.5 pg (27.0-31.2); Mean Corpuscular Volume 92.2 fl (81-99); Mean Platelet Volume 8.1 fl (7.4-10.4); Monocytes # 0.5 K/mm3 (0.1-1.0); Monocytes % 6.8 % (1.7-9.3); Neutrophils # 4.8 K/mm3 (1.8-7.8); Neutrophils % 66.2 % (37.0-80.0); Platelet Count 233 K/mm3 (142-424); Red Blood Count 4.34 M/mm3 (4.20-5.40); Red Cell Distribution Width 13.4 % (11.5-17.5); White Blood Count 7.2 K/mm3 (4.8-10.8)
[2020-10-08 10:52] LABS: Chloride 106 mmol/L (98-107); Sodium 141 mmol/L (136-145)
[2020-10-08 10:53] LABS: Potassium 4.3 mmoL/L (3.5-5.1)
[2020-10-08 10:55] LABS: Alanine Aminotransferase 21 U/L (12-78); Alkaline Phosphatase 42 U/L (38-126); Anion Gap 10.3 mEq/L (5-15); Aspartate Amino Transferase 39 U/L (14-36); Bilirubin,Direct 0.2 mg/dl (0.0-0.4); Bilirubin,Indirect 0.2 mg/dL (0.0-0.9); Bilirubin,Total 0.4 mg/dl (0.2-1.3); Bilirubin,Unconjugated 0.2 mg/dL (0.0-1.1); Blood Urea Nitrogen 23 mg/dl (7-17); Carbon Dioxide 29 mmol/L (22.0-30.0); Cholesterol 129 mg/dl (140-200); Estimated Glomerular Filt Rate 33 ml/min (>60); GFR (African American) 40 ML/MIN (>60); Triglycerides 133 mg/dl (30-150); VLDL Cholesterol 27 mg/dL (0-40)
[2020-10-08 10:56] LABS: Albumin Level 4.3 g/dl (3.5-5.0); Calcium 10.2 mg/dl (8.4-10.2); Chol/HDL Ratio 2.4 (1-3.5); Glucose 101 mg/dl (74-100); HDL Cholesterol 53 mg/dl (40-60); Total Protein,Serum 7.1 g/dl (6.3-8.2)
[2020-10-08 11:07] LABS: Direct LDL Cholesterol 52.05 mg/dL (100-129)
== END ==
PROVIDERS: Visit Provider Urology
DX: E78.2 Mixed hyperlipidemia (principal); I10 Essential (primary) hypertension; I48.20 Chronic atrial fibrillation, unspecified; Z79.01 Long term (current) use of anticoagulants
CPT/HCPCS: 36415; 80048; 80061; 80076; 85025

== ENCOUNTER → 2020-10-15 09:47 | Outpatient (CLI) | payer MEDICARE, OTHER, SELFPAY ==
[2020-10-15 11:12] LABS: Chloride 103 mmol/L (98-107); Potassium 4.7 mmoL/L (3.5-5.1); Sodium 143 mmol/L (136-145)
[2020-10-15 11:15] LABS: Blood Urea Nitrogen 23 mg/dl (7-17); Estimated Glomerular Filt Rate 29 ml/min (>60); GFR (African American) 35 ML/MIN (>60)
[2020-10-15 11:16] LABS: Anion Gap 13.7 mEq/L (5-15); Carbon Dioxide 31 mmol/L (22.0-30.0); Glucose 89 mg/dl (74-100); Magnesium 1.9 mg/dl (1.6-2.3)
== END ==
PROVIDERS: Visit Provider Internal Medicine Adolescent Medicine
DX: I27.20 Pulmonary hypertension, unspecified (principal)
CPT/HCPCS: 36415; 80048; 83735

== ENCOUNTER 2020-11-07 09:18 | Outpatient (CLI) | payer MEDICARE, OTHER, SELFPAY ==
[2020-11-07 14:05] LABS: PHA INR Fingerstick 1.9 (0.9-1.1)
== END 2020-11-07 14:11 | disposition home or self-care (01) ==
LOC: ACC 09:21
PROVIDERS: PCP Internal Medicine Adolescent Medicine; Visit Provider Internal Medicine Adolescent Medicine
DX: Z51.81 Encounter for therapeutic drug level monitoring (principal); Z79.01 Long term (current) use of anticoagulants; I48.91 Unspecified atrial fibrillation
CPT/HCPCS: 85610; 99211; G0463

== ENCOUNTER → 2020-12-11 09:58 | Outpatient (POV) | payer MEDICARE, OTHER, SELFPAY | PROVIDERS: Visit Provider Otolaryngology | DX: Z00.00 Encounter for general adult medical examination without abnormal findings (principal) ==

== ENCOUNTER 2020-12-18 08:50 | Outpatient (CLI) | payer MEDICARE, OTHER, SELFPAY ==
[2020-12-18 11:12] LABS: PHA INR Fingerstick 2.7 (0.9-1.1)
== END 2020-12-18 11:26 | disposition home or self-care (01) ==
LOC: ACC 08:52
PROVIDERS: PCP Internal Medicine Adolescent Medicine; Visit Provider Internal Medicine Adolescent Medicine
DX: I48.91 Unspecified atrial fibrillation (principal); Z79.01 Long term (current) use of anticoagulants
CPT/HCPCS: 85610; 99211; G0463

== ENCOUNTER 2021-01-23 17:19 | Emergency (ER) | payer MEDICARE, OTHER, SELFPAY ==
--- NOTE | 2021-01-23 17:20 | ECG_ITS ---
APPROVED REPORT Exam: Resting ECG HR:80 bpm ECG Measurements Heart Rate 80 AXES QRSd 100 QRS 29 QT 400 T -21 QTc 461 Conclusion Atrial fibrillation Incomplete right bundle branch block Nonspecific T wave abnormality, probably digitalis effect Abnormal ECG Electronically signed by : Dillon Mcmahan, 01/24/2021 17:01:18
[2021-01-23 17:21] VITALS: BP 151/87; PULSE 101; RESP 16; TEMP 36.6; O2SAT 98; BMI 27.6
--- NOTE | 2021-01-23 17:27 | XR_ITS ---
PROCEDURE INFORMATION: Exam: XR Chest Exam date and time: 01/23/2021 5:27 PM Age: 80 years old Clinical indication: Sternal or substernal pain; Prior surgery; Surgery type: Open heart; Patient HX: Chest pain TECHNIQUE: Imaging protocol: XR of the chest. Views: 1 view. COMPARISON: CR XR CHEST 2V 06/20/2019 1:50 PM FINDINGS: Lungs: Unremarkable. No consolidation. Granulomatous change. Pleural spaces: Unremarkable. No pleural effusion. No pneumothorax. Heart/Mediastinum: Midline sternotomy. No cardiomegaly. Bones/joints: Unremarkable. IMPRESSION: No acute findings.
[2021-01-23 17:30] VITALS: BP 133/80; PULSE 83; RESP 16; O2SAT 98
--- NOTE | 2021-01-23 17:33 | HMH.EDCP ---
ED Disposition Clinical Impression: Atypical chest pain Disposition: Home, Self-Care Condition on Discharge: Good Additional Instructions: Continue all medications. Follow-up with your primary care physician. To the emergency room for any new symptoms. Referrals: Provider,Referral, [Referring] - - Critical Care Critical Care Time: No Attestation: On 01/23/21, the high probability of a clinically significant, sudden or life threatening deterioration of the following system(s) required my full and direct attention, intervention and personal management. The time I documented below is in addition to time spent performing reported procedures but includes the following listed in this critical care notation. Medical Decision Making - Clement Inquiry Pt receiving controlled substance: No Clement was queried for this patient: No Vital Signs: 01/23/21 17:21 Temperature 98 F Temperature Source Oral Pulse Rate [Radial] 101 H Respiratory Rate 16 Blood Pressure [Right Arm] 151/87 H Blood Pressure Mean [Right Arm] 108 Blood Pressure Position [Right Arm] Sitting 02 Sat by Pulse Oximetry 98 Oxygen Delivery Method Room Air - Lab Data Lab Results 01/23/21 17:38: WBC 8.7, RBC 4.51, Hgb 13.5, Hct 41.2, MCV 91.3, MCH 29.9, MCHC 32.7, RDW 13.3, Plt Count 260, MPV 8.7, Neut % (Auto) 59.9, Lymph % (Auto) 28.8, Clark % (Auto) 6.7, Eos % (Auto) 4.0, Baso % (Auto) 0.6, Neut # (Auto) 5.2, Lymph # (Auto) 2.5, Clark # (Auto) 0.6, Eos # (Auto) 0.4, Baso # (Auto) 0.1 01/23/21 17:38: PT 23.8 H, INR 2.13 H 01/23/21 17:38: Sodium 141, Potassium 3.7, Chloride 102, Carbon Dioxide 30, Anion Gap 12.7, BUN 29 H, Creatinine 1.50 H, Estimated Creat Clear 33, Estimated GFR 33 L, Est GFR ( Amer) 40 L, Glucose 113 H, Calcium 9.6, Troponin I < 0.01 Result diagrams: 01/23/21 17:38 01/23/21 17:38 Orders (Tests/Meds): ORDERS Category Date Time Status Troponin I Q3H Lab 01/23/21 20:30 Ordered Troponin I Q3H Lab 01/23/21 23:30 Ordered Chest Pain HPI - General Chief Complaint: Chest Pain Stated Complaint: CHEST PAIN Time Seen by Provider: 01/23/21 17:33 Mode of Arrival: Ambulatory Limitations: No Limitations Description of Symptoms (Recalled from ER Triage Doc. by RN): TO ED PER PVT CAR WITH C/O CHEST PAIN STARTING YESTERDAY STATES PAIN ONLY LAST A FEW MINUTES AND STATES SHE ALSO HAD AN EPISODE TODAY. PT DENIES ANY SOB, NAUSEA, VOMITING, RADIATION OF PAIN, LEG PAIN. PT DENIES ANY PAIN AT PRESENT - History of Present Illness HPI narrative: The 80-year-old female with history of chronic atrial fibrillation who was on Coumadin. She complained of brief episodes of chest discomfort yesterday and palpitation and it happens for a few seconds today. When she presented in the emergency room she denied any symptoms. There was no radiation or diaphoresis or nausea or vomiting with it. She denied any symptoms in the emergency room and she feels fine but she came to the emergency room to be checked. She has some acid reflux symptoms symptoms and burping symptoms at night all the time. She denies any shortness of breath. She denies any fever or chills.. Duration: now resolved Activity at onset: during rest Pain location: substernal Severity: mild Severity scale (1-10): 1 Quality: aching Pain radiation: none Relieving factors: nothing Exacerbating factors: nothing Treatments prior to or on arrival for Cardiac Chest Pain: none - Related Data Home Medications Medication Instructions Recorded Confirmed calcium carbonate-vitamin D3 600 1 cap PO DAILY 11/06/17 12/03/20 mg calcium-200 unit capsule warfarin 1 mg tablet 1 mg PO DAILY tab 11/06/17 12/03/20 levothyroxine 100 mcg tablet 100 mcg PO DAILY tab 02/09/18 12/03/20 donepezil 5 mg tablet 5 mg PO DAILY 10/28/18 12/03/20 Alendronate Sodium 70 mg PO WEEKLY 03/08/19 12/03/20 Multivitamin [Daily Multiple 1 each PO DAILY 03/08/19 12/03/20 Vitamin] hydroxyzine pamoate 25 mg
[2021-01-23 18:00] VITALS: BP 143/63; PULSE 82; RESP 16
[2021-01-23 18:06] LABS: Chloride 102 mmol/L (98-107); Potassium 3.7 mmoL/L (3.5-5.1); Sodium 141 mmol/L (136-145)
[2021-01-23 18:07] LABS: Basophils # 0.1 K/mm3 (0-0.2); Basophils % 0.6 % (0.1-2.0); Eosinophils # 0.4 K/mm3 (0.0-0.4); Hematocrit 41.2 % (37.0-47.0); Hemoglobin 13.5 g/dL (12.2-16.2); Lymphocytes # 2.5 K/mm3 (0.7-4.5); Lymphocytes % 28.8 % (10-50); Mean Corpuscular HGB Conc 32.7 g/dL (31.8-35.4); Mean Corpuscular Hemoglobin 29.9 pg (27.0-31.2); Mean Corpuscular Volume 91.3 fl (81-99); Mean Platelet Volume 8.7 fl (7.4-10.4); Monocytes # 0.6 K/mm3 (0.1-1.0); Monocytes % 6.7 % (1.7-9.3); Neutrophils # 5.2 K/mm3 (1.8-7.8); Neutrophils % 59.9 % (37.0-80.0); Platelet Count 260 K/mm3 (142-424); Red Blood Count 4.51 M/mm3 (4.20-5.40); Red Cell Distribution Width 13.3 % (11.5-17.5); White Blood Count 8.7 K/mm3 (4.8-10.8)
[2021-01-23 18:09] LABS: Anion Gap 12.7 mEq/L (5-15); Blood Urea Nitrogen 29 mg/dl (7-17); Carbon Dioxide 30 mmol/L (22.0-30.0); Creatinine Clearance Estimated 33 mL/min (50-200); Estimated Glomerular Filt Rate 33 ml/min (>60); GFR (African American) 40 ML/MIN (>60)
[2021-01-23 18:10] LABS: Calcium 9.6 mg/dl (8.4-10.2); Glucose 113 mg/dl (74-100)
[2021-01-23 18:20] LABS: INR 2.13 (0.9-1.1)
[2021-01-23 18:22] LABS: Troponin I < 0.01 ng/ml (0.00-0.034)
[2021-01-23 18:30] VITALS: BP 134/82; PULSE 76
[2021-01-23 18:33] LABS: Prothrombin Time 23.8 seconds (10.1-12.5)
[2021-01-23 19:37] VITALS: BP 127/68; PULSE 67; RESP 16; TEMP 36.6; O2SAT 98
== END 2021-01-23 19:38 | disposition home or self-care (01) ==
PROVIDERS: Emergency Provider Internal Medicine; PCP Internal Medicine Adolescent Medicine
DX: R07.89 Other chest pain (principal); I10 Essential (primary) hypertension; E78.5 Hyperlipidemia, unspecified; Z95.0 Presence of cardiac pacemaker; E03.9 Hypothyroidism, unspecified; I48.20 Chronic atrial fibrillation, unspecified; F03.90 Unspecified dementia, unspecified severity, without behavioral disturbance, psychotic disturbance, mood disturbance, and anxiety
CPT/HCPCS: 71045; 80048; 84484; 85025; 85610; 93005; 99282; 99283

== ENCOUNTER → 2021-02-18 09:31 | Outpatient (CLI) | payer MEDICARE, OTHER, SELFPAY ==
--- NOTE | 2021-02-18 09:32 | NM_ITS ---
APPROVED REPORT Exam: Nuclear Stress Test Indication: chest pain Patient Location: Outpatient Stress Tech: Karli Caballero ND Tech:KARAN Nicole RT(R)(N) Ht: 5 ft 3 in Wt: 155 lbs Bra Size: 38 b HR: 65 bpm BP: 141/85 mmHg BSA: 1.74 m2 BMI: 27.4 History: chest pain Procedure: Patient received a 0.4 mg of intravenous Lexiscan, resting heart rate 65 bpm, resting blood pressure 141/85 mmHg, with Lexiscan maximum heart rate achived was 96 bpm which is Less than 85 % of the maximum predicted heart rate and blood pressure was 135/71 mmHg. With Lexiscan, patient denied any complaint of chest pain. Electrocardiogram Resting electrocardiogram shows atrial fibrillation, with Lexiscan there is less than 1.[address] segment depression noted from the baseline EKG. The EKG portion of the Lexiscan is nondiagnostic. Cardiac Stress and Resting SPECT Images: Cardiac Stress and Resting SPECT images were obtained using technetium 99m Myoview 32.9 mCi stress and 10.93 mCi at rest. Gated SPECT for analysis of segmental wall motion and calculation of the ejection fraction also done. Prone images were also obtained. Cardiac stress and resting SPECT images show uniform myocardial activity without segmental perfusion abnormality, computer derived ejection fraction is 54% with no regional wall motion abnormality, right ventricle is normal size and contractility. Conclusion: 1. The EKG portion of the Lexiscan is nondiagnostic. 2. No scintigraphic evidence of reversible ischemia seen, computer derived ejection fraction is 54% with no regional wall motion abnormality, right ventricle is normal size and contractility. 3. Normal Lexiscan Myoview study. Electronically signed by : Craig Paredes, 02/18/2021 17:37:54
--- NOTE | 2021-02-18 13:20 | CA_ITS ---
APPROVED REPORT Exam: Pharmacologic Technologist: Karli Caballero, Ht: 5 ft 3 in Wt: 159 lbs BSA: 1.75 m2 HR: 65 bpm BP: 141/85 mmHg Medical History Medications: Metoprolol,,,,, Alendonate,,,,, FeNOfibrate,,,,, Aricept,,,,, SpirOnolactone,,,,, MeMANTINE,,,,, LevothROXINE,,,,, Multivitamin,,,,, Furosemide,,,,, Warafin,,,,, Stress Test Details Test: LEXISCAN HR Resting HR: 75 bpm Max Heart Rate (APMHR): 138.309450 bpm Max HR Achieved: 102 bpm Target HR (85% APMHR): 117.343514 bpm % of APMHR: 73.91 Recovery HR: 78 bpm BP Resting BP: 141/85 mmHg Max BP: 141/85 mmHg Recovery BP: 127.0/65.0 mmHg ECG Resting ECG: Atrial fib Clinical Exercise duration: 04:00 min Highest Stage Achieved: Exercise capacity: 1.0 METs Stress ECG Conclusion Lexiscan portion completed. Symptoms: No CP. No SOB during peak infusion. Resolved in recovery. Arrhythmias/Ectopy: Occ PVC ST-T Changes: Less than 1.5mm ST depression Conclusion: Images to follow Electronically signed by : Craig Paredes, 02/18/2021 17:32:48
== END ==
PROVIDERS: PCP Internal Medicine Adolescent Medicine; Visit Provider Urology
DX: E78.2 Mixed hyperlipidemia (principal); I10 Essential (primary) hypertension; I48.20 Chronic atrial fibrillation, unspecified; R06.02 Shortness of breath; R07.89 Other chest pain; Z79.01 Long term (current) use of anticoagulants
CPT/HCPCS: 78452; 93017; A9502; J2785

== ENCOUNTER 2021-02-22 08:50 | Outpatient (CLI) | payer MEDICARE, OTHER, SELFPAY ==
[2021-02-22 17:58] LABS: PHA INR Fingerstick 2.2 (0.9-1.1)
== END 2021-02-22 18:08 | disposition home or self-care (01) ==
LOC: ACC 08:51
PROVIDERS: PCP Internal Medicine Adolescent Medicine; Visit Provider Internal Medicine Adolescent Medicine
DX: Z51.81 Encounter for therapeutic drug level monitoring (principal); Z79.01 Long term (current) use of anticoagulants; I48.91 Unspecified atrial fibrillation
CPT/HCPCS: 85610; 99211; G0463

== ENCOUNTER 2021-04-05 09:03 | Outpatient (CLI) | payer MEDICARE, OTHER, SELFPAY ==
[2021-04-05 14:49] LABS: PHA INR Fingerstick 2.8 (0.9-1.1)
== END 2021-04-05 14:50 | disposition home or self-care (01) ==
LOC: ACC 09:05
PROVIDERS: PCP Internal Medicine Adolescent Medicine; Visit Provider Internal Medicine Adolescent Medicine
DX: Z51.81 Encounter for therapeutic drug level monitoring (principal); Z79.01 Long term (current) use of anticoagulants; I48.91 Unspecified atrial fibrillation
CPT/HCPCS: 85610; 99211; G0463

== ENCOUNTER → 2021-05-06 10:30 | Outpatient (CLI) | payer MEDICARE, OTHER, SELFPAY ==
[2021-05-06 10:51] LABS: Basophils # 0.1 K/mm3 (0-0.2); Basophils % 1.2 % (0.1-2.0); Eosinophils # 0.3 K/mm3 (0.0-0.4); Eosinophils % 4.1 % (0.1-12.0); Hematocrit 42.7 % (37.0-47.0); Hemoglobin 14.1 g/dL (12.2-16.2); Lymphocytes # 1.9 K/mm3 (0.7-4.5); Lymphocytes % 25.3 % (10-50); Mean Corpuscular HGB Conc 32.9 g/dL (31.8-35.4); Mean Corpuscular Hemoglobin 30.6 pg (27.0-31.2); Mean Platelet Volume 7.8 fl (7.4-10.4); Monocytes # 0.5 K/mm3 (0.1-1.0); Monocytes % 6.8 % (1.7-9.3); Neutrophils # 4.6 K/mm3 (1.8-7.8); Neutrophils % 62.5 % (37.0-80.0); Platelet Count 267 K/mm3 (142-424); Red Cell Distribution Width 13.3 % (11.5-17.5); White Blood Count 7.3 K/mm3 (4.8-10.8)
[2021-05-06 11:02] LABS: INR 2.47 (0.9-1.1); Prothrombin Time 26.1 seconds (10.1-12.5)
[2021-05-06 12:30] LABS: Alanine Aminotransferase 20 U/L (12-78); Albumin Level 4.5 g/dl (3.5-5.0); Albumin/Globulin Ratio 1.6 (1.1-1.8); Alkaline Phosphatase 37 U/L (38-126); Anion Gap 10.7 mEq/L (5-15); Aspartate Amino Transferase 44 U/L (14-36); Bilirubin,Total 0.4 mg/dl (0.2-1.3); Blood Urea Nitrogen 19 mg/dl (7-17); Calcium 10.2 mg/dl (8.4-10.2); Carbon Dioxide 31 mmol/L (22.0-30.0); Chloride 105 mmol/L (98-107); Chol/HDL Ratio 2.8 (1-3.5); Cholesterol 153 mg/dl (140-200); Estimated Glomerular Filt Rate 36 ml/min (>60); GFR (African American) 44 ML/MIN (>60); Globulin 2.8 g/dL (1.3-3.2); Glucose 82 mg/dl (74-100); HDL Cholesterol 54 mg/dl (40-60); Potassium 4.7 mmoL/L (3.5-5.1); Sodium 142 mmol/L (136-145); Total Protein,Serum 7.3 g/dl (6.3-8.2); Triglycerides 124 mg/dl (30-150); VLDL Cholesterol 25 mg/dL (0-40)
[2021-05-06 12:41] LABS: Direct LDL Cholesterol 78.87 mg/dL (100-129)
[2021-05-06 12:58] LABS: Thyroid Stimulating Hormone 1.25 uIU/mL (0.465-4.68)
== END ==
PROVIDERS: Visit Provider Internal Medicine Adolescent Medicine
DX: E78.5 Hyperlipidemia, unspecified (principal); E03.9 Hypothyroidism, unspecified; N17.9 Acute kidney failure, unspecified; I48.20 Chronic atrial fibrillation, unspecified; Z51.81 Encounter for therapeutic drug level monitoring; Z79.01 Long term (current) use of anticoagulants
CPT/HCPCS: 36415; 80053; 80061; 84443; 85025; 85610

== ENCOUNTER 2021-05-17 08:40 | Outpatient (CLI) | payer MEDICARE, OTHER, SELFPAY ==
[2021-05-17 13:03] LABS: PHA INR Fingerstick 2.7 (0.9-1.1)
== END 2021-05-17 13:05 | disposition home or self-care (01) ==
LOC: ACC 08:41
PROVIDERS: PCP Internal Medicine Adolescent Medicine; Visit Provider Internal Medicine Adolescent Medicine
DX: Z51.81 Encounter for therapeutic drug level monitoring (principal); Z79.01 Long term (current) use of anticoagulants; I48.91 Unspecified atrial fibrillation
CPT/HCPCS: 85610; 99211; G0463

== ENCOUNTER → 2021-05-24 08:17 | Outpatient (CLI) | payer MEDICARE, OTHER, SELFPAY ==
--- NOTE | 2021-05-24 08:21 | MM_ITS ---
PROCEDURE INFORMATION: Exam: MG Bilateral Screening 3D Mammography Exam date and time: 05/24/2021 8:21 AM Age: 81 years old Clinical indication: Encounter for screening mammogram for malignant neoplasm of breast TECHNIQUE: Imaging protocol: Bilateral screening tomosynthesis and 2D mammography including computer-aided detection (CAD) when performed. COMPARISON: MG MM DIG SCREENING MAMM BI W/CAD 05/03/2020 10:00 AM FINDINGS: MAMMOGRAPHY: Breast composition: The breast tissue is heterogeneously dense, which may obscure small masses. Mass: None. Architectural distortion: None. Calcifications: No suspicious calcifications. Asymmetric density: None. Skin thickening: None. Axillary adenopathy: None. IMPRESSION: No mammographic evidence of malignancy. Annual screening is recommended unless otherwise clinically indicated. ASSESSMENT: BI-RADS Category 1: Negative
--- NOTE | 2021-05-24 09:12 | XR_ITS ---
PROCEDURE: XR DEXA AXIAL SKELETON CLINICAL HISTORY: POST MENOPAUSAL COMPARISON: No exams were available for comparison FINDINGS: The right hip BMD is 0.806 with a T-score of -0.4. The left hip BMD is 0.850 with a T-score of 0.0. The lumbar spine BMD is 1.072 with a T-score of 0.2. Previously the lowest density was in the lumbar spine with a T-score -1.1 IMPRESSION: This patient is considered normal according to the World Health Organization criteria. Fracture risk is low. Based on these results a follow-up exam is recommended in 2 year. Dictated by: Mitchel Ramires MD 05/27/2021 07:18 Mitchel Ramires MD in [place] 05/27/2021 07:18
== END ==
PROVIDERS: PCP Internal Medicine Adolescent Medicine; Visit Provider Internal Medicine Adolescent Medicine
DX: Z12.31 Encounter for screening mammogram for malignant neoplasm of breast (principal); Z78.0 Asymptomatic menopausal state
CPT/HCPCS: 77063; 77067; 77080

== ENCOUNTER → 2021-06-06 14:13 | Outpatient (CLI) | payer MEDICARE, OTHER, SELFPAY | PROVIDERS: PCP Radiology Diagnostic Radiology; Visit Provider Nurse Practitioner | DX: Z20.822 Contact with and (suspected) exposure to COVID-19 (principal) | CPT/HCPCS: C9803; U0003; U0005 ==

== ENCOUNTER 2021-06-28 08:59 | Outpatient (CLI) | payer MEDICARE, OTHER, SELFPAY | END 2021-06-28 14:16 | disposition home or self-care (01) | LOC: ACC 09:00 | PROVIDERS: PCP Internal Medicine Adolescent Medicine; Visit Provider Internal Medicine Adolescent Medicine | DX: Z51.81 Encounter for therapeutic drug level monitoring (principal); Z79.01 Long term (current) use of anticoagulants; I48.91 Unspecified atrial fibrillation | CPT/HCPCS: 85610; 99211; G0463 ==

== ENCOUNTER 2021-07-11 15:40 | Emergency (ER) | payer MEDICARE, OTHER, SELFPAY ==
[2021-07-11] VITALS (7 sets, daily range): BP systolic 116–159; BP diastolic 57–92; PULSE 60–99; RESP 14–19; TEMP 36.8–36.9; O2SAT 95–100; BMI 26.7
--- NOTE | 2021-07-11 15:39 | ECG_ITS ---
APPROVED REPORT Exam: Resting ECG HR:78 bpm ECG Measurements Heart Rate 78 AXES QRSd 96 QRS 2 QT 372 T -47 QTc 424 Conclusion Atrial fibrillation Incomplete right bundle branch block Cannot rule out Anterior infarct, age undetermined Abnormal ECG Electronically signed by : Dillon Mcmahan MD 07/13/2021 06:20:37
--- NOTE | 2021-07-11 15:47 | HMH.EDGENADL ---
ED Disposition Clinical Impression: Atypical chest pain Disposition: Home, Self-Care Condition on Discharge: Good Instructions: DI for Atypical Chest Pain Additional Instructions: Additional instructions for CHEST PAIN: Call Dr. Patricio's office to schedule a follow-up appointment. Return immediately if worsening chest pain, vomiting, shortness of breath, fever, coughing of blood. Referrals: Provider,Referral, [Referring] - - Critical Care Critical Care Time: No Attestation: On 07/11/21, the high probability of a clinically significant, sudden or life threatening deterioration of the following system(s) required my full and direct attention, intervention and personal management. The time I documented below is in addition to time spent performing reported procedures but includes the following listed in this critical care notation. Medical Decision Making - Medical Records Medical records reviewed: Yes: I reviewed the patient's medical records. MR Comment: Reviewed most recent [employer] Myoview result, see below. - Clement Inquiry Pt receiving controlled substance: No Vital Signs: 07/11/21 15:40 07/11/21 16:00 07/11/21 16:31 Temperature 98.2 F Temperature Source Oral Pulse Rate 85 76 Pulse Rate [Right] 99 H Respiratory Rate 16 17 19 Blood Pressure 146/88 H 137/57 L Blood Pressure [Right Arm] 159/92 H Blood Pressure Mean 112 97 Blood Pressure Mean [Right Arm] 114 Blood Pressure Source Blood Pressure Source [Right Arm] Automatic Cuff Blood Pressure Position Blood Pressure Position [Right Arm] Sitting 02 Sat by Pulse Oximetry 98 100 95 Oxygen Delivery Method Room Air 07/11/21 17:00 07/11/21 17:30 07/11/21 18:01 Temperature Temperature Source Pulse Rate 60 60 84 Pulse Rate [Right] Respiratory Rate 14 17 15 Blood Pressure 147/89 H 135/79 119/70 Blood Pressure [Right Arm] Blood Pressure Mean 102 97 86 Blood Pressure Mean [Right Arm] Blood Pressure Source Blood Pressure Source [Right Arm] Blood Pressure Position Blood Pressure Position [Right Arm] 02 Sat by Pulse Oximetry 99 95 96 Oxygen Delivery Method Room Air 07/11/21 18:33 Temperature 98.5 F Temperature Source Oral Pulse Rate 80 Pulse Rate [Right] Respiratory Rate 16 Blood Pressure 116/70 Blood Pressure [Right Arm] Blood Pressure Mean Blood Pressure Mean [Right Arm] Blood Pressure Source Automatic Cuff Blood Pressure Source [Right Arm] Blood Pressure Position Sitting Blood Pressure Position [Right Arm] 02 Sat by Pulse Oximetry Oxygen Delivery Method Room Air - Lab Data Lab Results 07/11/21 15:45: WBC 8.7, RBC 4.54, Hgb 13.7, Hct 40.8, MCV 89.9, MCH 30.3, MCHC 33.7, RDW 13.3, Plt Count 275, MPV 8.3, Neut % (Auto) 61.7, Lymph % (Auto) 26.7, Mayes % (Auto) 6.3, Eos % (Auto) 4.3, Baso % (Auto) 0.9, Neut # (Auto) 5.3, Lymph # (Auto) 2.3, Mayes # (Auto) 0.6, Eos # (Auto) 0.4, Baso # (Auto) 0.1 07/11/21 15:45: Sodium 140, Potassium 3.9, Chloride 103, Carbon Dioxide 29, Anion Gap 11.9, BUN 26 H, Creatinine 1.30 H, Estimated Creat Clear 36, Estimated GFR 39 L, Est GFR ( Amer) 47 L, Glucose 114 H, Calcium 9.8, Troponin I < 0.01 07/11/21 15:45: PT 25.9 H, INR 2.45 H, APTT 41.0 H 07/11/21 17:35: Troponin I < 0.01 Result diagrams: 07/11/21 15:45 07/11/21 15:45 Orders (Tests/Meds): Exam: Nuclear Stress Test Indication: chest pain Patient Location: Outpatient Stress Tech: [facility] Tech:KARAN Nicole RT(R)(N) Ht: 5 ft 3 in Wt: 155 lbs Bra Size: 38 b HR: 65 bpm BP: 141/85 mmHg BSA: 1.74 m2 BMI: 27.4 History: chest pain Procedure: Patient received a 0.4 mg of intravenous Lexiscan, resting heart rate 65 bpm, resting blood pressure 141/85 mmHg, with Lexiscan maximum heart rate achived was 96 bpm which is Less than 85 % of the maximum predicted heart rate and blood pressure was 135
--- NOTE | 2021-07-11 16:02 | XR_ITS ---
PROCEDURE: XR CHEST 2V CLINICAL HISTORY: chest paoin COMPARISON: CT [facility] CT CHEST W/O CONTRAST from 12/29/2013 CR XR CHEST 2V from 03/08/[address] ABDOMEN PELVIS WO CON from 03/08/2019 CR XR CHEST 2V from 06/20/2019 CR XR CHEST PORTABLE from 01/23/2021 FINDINGS: Prior CABG. Normal heart size. Lungs are clear bilaterally. Mild thoracolumbar curvature convex right. IMPRESSION: No acute findings. Dictated by: Mitchel Ramires MD 07/11/2021 16:31 Mitchel Ramires MD in [place] 07/11/2021 16:31
[2021-07-11 16:09] LABS: Basophils # 0.1 K/mm3 (0-0.2); Basophils % 0.9 % (0.1-2.0); Eosinophils # 0.4 K/mm3 (0.0-0.4); Eosinophils % 4.3 % (0.1-12.0); Hematocrit 40.8 % (37.0-47.0); Hemoglobin 13.7 g/dL (12.2-16.2); Lymphocytes # 2.3 K/mm3 (0.7-4.5); Lymphocytes % 26.7 % (10-50); Mean Corpuscular HGB Conc 33.7 g/dL (31.8-35.4); Mean Corpuscular Hemoglobin 30.3 pg (27.0-31.2); Mean Corpuscular Volume 89.9 fl (81-99); Mean Platelet Volume 8.3 fl (7.4-10.4); Monocytes # 0.6 K/mm3 (0.1-1.0); Monocytes % 6.3 % (1.7-9.3); Neutrophils # 5.3 K/mm3 (1.8-7.8); Neutrophils % 61.7 % (37.0-80.0); Platelet Count 275 K/mm3 (142-424); Red Blood Count 4.54 M/mm3 (4.20-5.40); Red Cell Distribution Width 13.3 % (11.5-17.5); White Blood Count 8.7 K/mm3 (4.8-10.8)
[2021-07-11 16:24] LABS: Chloride 103 mmol/L (98-107); Potassium 3.9 mmoL/L (3.5-5.1); Sodium 140 mmol/L (136-145)
[2021-07-11 16:27] LABS: Anion Gap 11.9 mEq/L (5-15); Blood Urea Nitrogen 26 mg/dl (7-17); Calcium 9.8 mg/dl (8.4-10.2); Carbon Dioxide 29 mmol/L (22.0-30.0); Creatinine Clearance Estimated 36 mL/min (50-200); Estimated Glomerular Filt Rate 39 ml/min (>60); GFR (African American) 47 ML/MIN (>60); Glucose 114 mg/dl (74-100)
[2021-07-11 16:30] LABS: INR 2.45 (0.9-1.1); Prothrombin Time 25.9 seconds (10.1-12.5)
[2021-07-11 16:42] LABS: Troponin I < 0.01 ng/ml (0.00-0.034)
--- NOTE | 2021-07-11 16:47 | PC.NURSE ---
speaking with Dr. Patricio
[2021-07-11 18:13] LABS: Troponin I < 0.01 ng/ml (0.00-0.034)
== END 2021-07-11 18:36 | disposition home or self-care (01) ==
PROVIDERS: Emergency Provider Emergency Medicine; PCP Internal Medicine Adolescent Medicine
DX: R07.89 Other chest pain (principal); I48.0 Paroxysmal atrial fibrillation; I50.9 Heart failure, unspecified; I10 Essential (primary) hypertension; E78.5 Hyperlipidemia, unspecified; Z87.891 Personal history of nicotine dependence; Z79.899 Other long term (current) drug therapy
CPT/HCPCS: 71046; 80048; 84484; 85025; 85610; 85730; 93005; 99284

== ENCOUNTER → 2021-07-15 10:54 | Outpatient (CLI) | payer MEDICARE, OTHER, SELFPAY ==
[2021-07-15 11:19] LABS: Basophils # 0.1 K/mm3 (0-0.2); Basophils % 0.9 % (0.1-2.0); Eosinophils # 0.3 K/mm3 (0.0-0.4); Hematocrit 44.2 % (37.0-47.0); Hemoglobin 14.6 g/dL (12.2-16.2); Lymphocytes # 2.1 K/mm3 (0.7-4.5); Lymphocytes % 26.9 % (10-50); Mean Corpuscular HGB Conc 32.9 g/dL (31.8-35.4); Mean Corpuscular Hemoglobin 30.9 pg (27.0-31.2); Mean Corpuscular Volume 93.8 fl (81-99); Mean Platelet Volume 7.5 fl (7.4-10.4); Monocytes # 0.5 K/mm3 (0.1-1.0); Monocytes % 5.8 % (1.7-9.3); Neutrophils # 4.9 K/mm3 (1.8-7.8); Neutrophils % 62.3 % (37.0-80.0); Platelet Count 273 K/mm3 (142-424); Red Blood Count 4.71 M/mm3 (4.20-5.40); Red Cell Distribution Width 12.8 % (11.5-17.5); White Blood Count 7.9 K/mm3 (4.8-10.8)
[2021-07-15 12:24] LABS: Chloride 102 mmol/L (98-107); Potassium 4.7 mmoL/L (3.5-5.1); Sodium 143 mmol/L (136-145)
[2021-07-15 12:27] LABS: Blood Urea Nitrogen 27 mg/dl (7-17); Estimated Glomerular Filt Rate 36 ml/min (>60); GFR (African American) 44 ML/MIN (>60)
[2021-07-15 12:28] LABS: Anion Gap 13.7 mEq/L (5-15); Calcium 10.5 mg/dl (8.4-10.2); Carbon Dioxide 32 mmol/L (22.0-30.0); Glucose 104 mg/dl (74-100)
== END ==
PROVIDERS: Visit Provider Physician Assistant
DX: Z01.812 Encounter for preprocedural laboratory examination (principal); Z11.52 Encounter for screening for COVID-19; I20.8 Other forms of angina pectoris
CPT/HCPCS: 36415; 80048; 85025; C9803; U0003; U0005

== ENCOUNTER 2021-07-17 08:29 | Day surgery (SDC) | payer MEDICARE, OTHER, SELFPAY ==
[2021-07-17] VITALS (12 sets, daily range): BP systolic 94–138; BP diastolic 48–80; PULSE 50–90; RESP 13–19; TEMP 36.8–36.9; O2SAT 96–100; BMI 27.8
--- NOTE | 2021-07-17 07:08 | IR_ITS ---
APPROVED REPORT Patient Location: Outpatient M[facility] Service Line Inspector: KARAN Silva RT (R) PROCEDURES Left heart catheterization Left ventriculogram Selective coronary angiogram INDICATION Coronary artery disease, Progressive angina pectoris Informed consent was obtained prior to the procedure. COMPLICATIONS NONE Estimated Blood Loss: LESS THAN 10 ML TECHNIQUE One percent lidocaine used to anesthetize the right anterior aspect of the wrist. The right radial artery was accessed via the Seldinger technique. A 6 Estonian sheath was placed in the right radial artery. 2.5 mg of verapamil, 800 mcg of nitroglycerin, 1mg Lidocaine and 5000 U Heparin were given through the arterial sheath. The Poppa catheter was also used to perform left heart catheterization, left ventriculogram and selective coronary angiogram. At the end of the procedure the sheath was removed good hemostasis was achieved using Traclet band, patient was transferred to the postop holding area in stable condition. ANGIOGRAPHIC RESULTS The left main artery Normal The left anterior descending artery Has proximal and mid vessel 20 to 30% stenoses The circumflex artery Nondominant mild 10% luminal irregularities The right coronary artery Large dominant with smooth 10% mid vessel stenosis The LADD ventriculogram reveals Normal 65% The left ventricular end-diastolic pressure 15 mmHg IMPRESSION Mild nonflow limiting coronary disease Normal ejection fraction Borderline elevated LVEDP PLAN 1. Medical management Electronically signed by : Nando Patricio MD 07/17/2021 10:40:45
[2021-07-17 09:24] LABS: INR 1.81 (0.9-1.1); Prothrombin Time 19.6 seconds (10.1-12.5)
== END 2021-07-17 13:33 | disposition home or self-care (01) ==
LOC: CATHLAB 08:30
PROVIDERS: PCP Internal Medicine Adolescent Medicine; Visit Provider Internal Medicine
DX: E78.2 Mixed hyperlipidemia (principal); G47.33 Obstructive sleep apnea (adult) (pediatric); I25.118 Atherosclerotic heart disease of native coronary artery with other forms of angina pectoris; I48.20 Chronic atrial fibrillation, unspecified; R94.31 Abnormal electrocardiogram [ECG] [EKG]; Z87.74 Personal history of (corrected) congenital malformations of heart and circulatory system; Z79.01 Long term (current) use of anticoagulants; Z79.899 Other long term (current) drug therapy; I50.9 Heart failure, unspecified; I11.0 Hypertensive heart disease with heart failure; E03.9 Hypothyroidism, unspecified; Z95.0 Presence of cardiac pacemaker; Z87.891 Personal history of nicotine dependence; Z82.49 Family history of ischemic heart disease and other diseases of the circulatory system
CPT/HCPCS: 85610; 93458; 99152; C1725; C1769; J1644; Q9967

== ENCOUNTER → 2021-07-26 09:57 | Outpatient (CLI) | payer MEDICARE, OTHER, SELFPAY ==
[2021-07-26 10:51] LABS: Influenza A, PCR Not Detected (NotDetected); Influenza B, PCR Not Detected (NotDetected)
[2021-07-26 11:15] LABS: Coronavirus 19, PCR Detected (NotDetected)
== END ==
PROVIDERS: PCP Internal Medicine Adolescent Medicine; Visit Provider Emergency Medicine
DX: U07.1 COVID-19 (principal); R05.9 Cough, unspecified
CPT/HCPCS: C9803; U0003; U0005

== ENCOUNTER 2021-07-27 07:51 | Outpatient (CLI) | payer MEDICARE, OTHER, SELFPAY | END 2021-07-27 10:15 | disposition home or self-care (01) | PROVIDERS: PCP Internal Medicine Adolescent Medicine; Visit Provider Emergency Medicine | DX: U07.1 COVID-19 (principal); Z23 Encounter for immunization | CPT/HCPCS: 96365 ==

== ENCOUNTER 2021-08-02 08:40 | Outpatient (CLI) | payer MEDICARE, OTHER, SELFPAY ==
[2021-08-02 13:54] LABS: PHA INR Fingerstick 2.8 (0.9-1.1)
== END 2021-08-02 14:50 | disposition home or self-care (01) ==
LOC: ACC 08:42
PROVIDERS: PCP Internal Medicine Adolescent Medicine; Visit Provider Internal Medicine Adolescent Medicine
DX: Z51.81 Encounter for therapeutic drug level monitoring (principal); Z79.01 Long term (current) use of anticoagulants; I48.91 Unspecified atrial fibrillation
CPT/HCPCS: 85610; 99211; G0463

== ENCOUNTER 2021-09-13 09:06 | Outpatient (CLI) | payer MEDICARE, OTHER, SELFPAY | END 2021-09-13 09:34 | disposition home or self-care (01) | LOC: ACC 09:07 | PROVIDERS: PCP Internal Medicine Adolescent Medicine; Visit Provider Internal Medicine Adolescent Medicine | DX: Z51.81 Encounter for therapeutic drug level monitoring (principal); Z79.01 Long term (current) use of anticoagulants; I48.91 Unspecified atrial fibrillation | CPT/HCPCS: 85610; 99211; G0463 ==

== ENCOUNTER 2021-12-13 10:02 | Outpatient (CLI) | payer MEDICARE, OTHER, SELFPAY ==
[2021-12-13 11:50] LABS: PHA INR Fingerstick 1.7 (0.9-1.1)
== END 2021-12-13 11:52 | disposition home or self-care (01) ==
LOC: ACC 10:06
PROVIDERS: PCP Pharmacist; Visit Provider Internal Medicine Adolescent Medicine
DX: Z51.81 Encounter for therapeutic drug level monitoring (principal); Z79.01 Long term (current) use of anticoagulants; I48.91 Unspecified atrial fibrillation
CPT/HCPCS: 85610; 99211; G0463

== ENCOUNTER 2022-01-03 08:59 | Outpatient (CLI) | payer MEDICARE, OTHER, SELFPAY ==
[2022-01-03 11:50] LABS: PHA INR Fingerstick 2.7 (0.9-1.1)
== END 2022-01-03 12:01 | disposition home or self-care (01) ==
LOC: ACC 09:00
PROVIDERS: PCP Internal Medicine Adolescent Medicine; Visit Provider Internal Medicine Adolescent Medicine
DX: Z51.81 Encounter for therapeutic drug level monitoring (principal); Z79.01 Long term (current) use of anticoagulants; I48.91 Unspecified atrial fibrillation
CPT/HCPCS: 85610; 99211; G0463

== ENCOUNTER 2022-01-24 08:52 | Outpatient (CLI) | payer MEDICARE, OTHER, SELFPAY ==
[2022-01-24 11:59] LABS: PHA INR Fingerstick 1.9 (0.9-1.1)
== END 2022-01-24 14:30 | disposition home or self-care (01) ==
LOC: ACC 08:53
PROVIDERS: PCP Internal Medicine Adolescent Medicine; Visit Provider Internal Medicine Adolescent Medicine
DX: Z51.81 Encounter for therapeutic drug level monitoring (principal); Z79.01 Long term (current) use of anticoagulants; I48.91 Unspecified atrial fibrillation
CPT/HCPCS: 85610; 99211; G0463

== ENCOUNTER 2022-02-21 09:24 | Outpatient (CLI) | payer MEDICARE, OTHER, SELFPAY ==
[2022-02-21 16:11] LABS: PHA INR Fingerstick 2.7 (0.9-1.1)
== END 2022-02-21 16:22 | disposition home or self-care (01) ==
LOC: ACC 09:25
PROVIDERS: PCP Internal Medicine Adolescent Medicine; Visit Provider Internal Medicine Adolescent Medicine
DX: Z51.81 Encounter for therapeutic drug level monitoring (principal); Z79.01 Long term (current) use of anticoagulants; I48.91 Unspecified atrial fibrillation
CPT/HCPCS: 85610; 99211; G0463

== ENCOUNTER 2022-04-04 08:57 | Outpatient (CLI) | payer MEDICARE, OTHER, SELFPAY ==
[2022-04-04 14:36] LABS: PHA INR Fingerstick 3.1 (0.9-1.1)
== END 2022-04-04 14:57 ==
LOC: ACC 08:59
PROVIDERS: PCP Internal Medicine Adolescent Medicine; Visit Provider Internal Medicine Adolescent Medicine
DX: Z51.81 Encounter for therapeutic drug level monitoring (principal); Z79.01 Long term (current) use of anticoagulants; I48.91 Unspecified atrial fibrillation
CPT/HCPCS: 85610; 99211; G0463

== ENCOUNTER 2022-05-02 09:11 | Outpatient (CLI) | payer MEDICARE, OTHER, SELFPAY ==
[2022-05-02 14:58] LABS: PHA INR Fingerstick 3.9 (0.9-1.1)
== END 2022-05-02 15:37 ==
LOC: ACC 09:18
PROVIDERS: PCP Internal Medicine Adolescent Medicine; Visit Provider Orthopaedic Surgery
DX: Z51.81 Encounter for therapeutic drug level monitoring (principal); Z79.01 Long term (current) use of anticoagulants; I48.91 Unspecified atrial fibrillation
CPT/HCPCS: 85610; 99211; G0463

== ENCOUNTER 2022-05-23 08:43 | Outpatient (CLI) | payer MEDICARE, OTHER, SELFPAY ==
[2022-05-23 11:33] LABS: PHA INR Fingerstick 2.3 (0.9-1.1)
== END 2022-05-23 11:34 ==
LOC: ACC 08:46
PROVIDERS: PCP Internal Medicine Adolescent Medicine; Visit Provider Internal Medicine Adolescent Medicine
DX: Z51.81 Encounter for therapeutic drug level monitoring (principal); Z79.01 Long term (current) use of anticoagulants; I48.91 Unspecified atrial fibrillation
CPT/HCPCS: 85610; 99211; G0463

== ENCOUNTER → 2022-06-04 10:11 | Outpatient (CLI) | payer MEDICARE, OTHER, SELFPAY ==
--- NOTE | 2022-06-04 10:26 | MM_ITS ---
PROCEDURE INFORMATION: Exam: MG Bilateral Screening 3D Mammography Exam date and time: 06/04/2022 10:20 AM Age: 82 years old Clinical indication: Screening examination TECHNIQUE: Imaging protocol: Bilateral Screening tomosynthesis and 2D mammography including computer-aided detection (CAD) when performed. COMPARISON: 1. MG MM DIG SCREENING MAMM BI W/CAD 05/24/2021 8:36 AM 2. MG MM DIG SCREENING MAMM BI W/CAD 05/03/2020 10:00 AM FINDINGS: MAMMOGRAPHY: Breast composition: The breasts are heterogeneously dense, which may obscure small masses. Mass: Questionable partially obscured 0.8 cm mass in the upper left breast, posterior depth, only well seen on MLO frame 41. Finding may represent summation artifact. No suspicious masses in the right breast. Architectural distortion: No suspicious distortion. Relatively stable postsurgical architectural distortion in the upper left breast. Calcifications: No suspicious calcifications. Asymmetric density: None. Skin thickening: None. Axillary adenopathy: None. IMPRESSION: 1. Recommend left breast spot compression CC/MLO views, full field exaggerated CC lateral view and ultrasound for further evaluation of a questionable partially obscured mass in the upper left breast, only well seen on MLO projection. 2. No definite mammographic evidence of malignancy in the right breast. ASSESSMENT: BI-RADS Category 0: Incomplete- Need Additional Imaging Evaluation and/or Prior Mammograms for Comparison
== END ==
PROVIDERS: PCP Internal Medicine Adolescent Medicine; Visit Provider Internal Medicine Adolescent Medicine
DX: Z12.31 Encounter for screening mammogram for malignant neoplasm of breast (principal)
CPT/HCPCS: 77063; 77067

== ENCOUNTER 2022-07-04 09:04 | Outpatient (CLI) | payer MEDICARE, OTHER, SELFPAY ==
[2022-07-04 12:58] LABS: PHA INR Fingerstick 2.1 (0.9-1.1)
== END 2022-07-04 13:00 ==
LOC: ACC 09:06
PROVIDERS: PCP Internal Medicine Adolescent Medicine; Visit Provider Internal Medicine Adolescent Medicine
DX: Z51.81 Encounter for therapeutic drug level monitoring (principal); Z79.01 Long term (current) use of anticoagulants; I48.91 Unspecified atrial fibrillation
CPT/HCPCS: 85610; 99211; G0463

== ENCOUNTER → 2022-08-13 06:13 | Outpatient (CLI) | payer MEDICARE, OTHER, SELFPAY ==
[2022-08-13 08:15] LABS: Basophils # 0.1 K/mm3 (0-0.2); Eosinophils # 0.4 K/mm3 (0.0-0.4); Eosinophils % 4.8 % (0.1-12.0); Hemoglobin 13.7 g/dL (12.2-16.2); Lymphocytes # 2.3 K/mm3 (0.7-4.5); Lymphocytes % 31.1 % (10-50); Mean Corpuscular HGB Conc 31.9 g/dL (31.8-35.4); Mean Corpuscular Hemoglobin 29.9 pg (27.0-31.2); Mean Corpuscular Volume 93.5 fl (81-99); Mean Platelet Volume 8.2 fl (7.4-10.4); Monocytes # 0.4 K/mm3 (0.1-1.0); Monocytes % 5.9 % (1.7-9.3); Neutrophils # 4.2 K/mm3 (1.8-7.8); Neutrophils % 57.2 % (37.0-80.0); Platelet Count 294 K/mm3 (142-424); Red Blood Count 4.59 M/mm3 (4.20-5.40); Red Cell Distribution Width 13.3 % (11.5-17.5); White Blood Count 7.3 K/mm3 (4.8-10.8)
[2022-08-13 09:14] LABS: Alanine Aminotransferase 23 U/L (12-78); Albumin Level 4.4 g/dl (3.5-5.0); Alkaline Phosphatase 40 U/L (38-126); Anion Gap 12.4 mEq/L (5-15); Aspartate Amino Transferase 41 U/L (14-36); Bilirubin,Direct 0.2 mg/dl (0.0-0.4); Bilirubin,Indirect 0.1 mg/dL (0.0-0.9); Bilirubin,Total 0.3 mg/dl (0.2-1.3); Bilirubin,Unconjugated 0.1 mg/dL (0.0-1.1); Blood Urea Nitrogen 23 mg/dl (7-17); Calcium 9.7 mg/dl (8.4-10.2); Carbon Dioxide 30 mmol/L (22.0-30.0); Chloride 107 mmol/L (98-107); Chol/HDL Ratio 3.3 (1-3.5); Cholesterol 136 mg/dl (140-200); Estimated Glomerular Filt Rate 39 ml/min (>60); GFR (African American) 47 ML/MIN (>60); Glucose 90 mg/dl (74-100); HDL Cholesterol 41 mg/dl (40-60); Magnesium 1.9 mg/dl (1.6-2.3); Potassium 4.4 mmoL/L (3.5-5.1); Sodium 145 mmol/L (136-145); Triglycerides 112 mg/dl (30-150); VLDL Cholesterol 22 mg/dL (0-40)
[2022-08-13 09:25] LABS: Direct LDL Cholesterol 73.52 mg/dL (100-129)
[2022-08-13 09:28] LABS: Free T4 (Free Thyroxine) 2.18 ng/dl (0.78-2.19)
[2022-08-13 09:43] LABS: Thyroid Stimulating Hormone 0.76 uIU/mL (0.465-4.68)
== END ==
PROVIDERS: PCP Internal Medicine Adolescent Medicine; Visit Provider Nurse Practitioner
DX: E78.2 Mixed hyperlipidemia (principal); I25.10 Atherosclerotic heart disease of native coronary artery without angina pectoris; N28.9 Disorder of kidney and ureter, unspecified; R60.0 Localized edema; R94.31 Abnormal electrocardiogram [ECG] [EKG]; Z87.74 Personal history of (corrected) congenital malformations of heart and circulatory system; I48.20 Chronic atrial fibrillation, unspecified
CPT/HCPCS: 36415; 80048; 80061; 80076; 83735; 84439; 84443; 85025

== ENCOUNTER 2022-08-15 08:33 | Outpatient (CLI) | payer MEDICARE, OTHER, SELFPAY ==
[2022-08-15 15:11] LABS: PHA INR Fingerstick 2.4 (0.9-1.1)
== END 2022-08-15 16:08 ==
LOC: ACC 08:35
PROVIDERS: PCP Internal Medicine Adolescent Medicine; Visit Provider Internal Medicine Adolescent Medicine
DX: Z51.81 Encounter for therapeutic drug level monitoring (principal); Z79.01 Long term (current) use of anticoagulants; I48.91 Unspecified atrial fibrillation
CPT/HCPCS: 85610; 99211; G0463

== ENCOUNTER 2022-09-26 08:55 | Outpatient (CLI) | payer MEDICARE, OTHER, SELFPAY ==
[2022-09-26 12:46] LABS: PHA INR Fingerstick 2.2 (0.9-1.1)
== END 2022-09-26 13:28 ==
LOC: ACC 08:56
PROVIDERS: PCP Internal Medicine Adolescent Medicine; Visit Provider Internal Medicine Adolescent Medicine
DX: Z51.81 Encounter for therapeutic drug level monitoring (principal); Z79.01 Long term (current) use of anticoagulants; I48.91 Unspecified atrial fibrillation
CPT/HCPCS: 85610; 99211; G0463

== ENCOUNTER 2022-11-07 12:57 | Outpatient (CLI) | payer MEDICARE, OTHER, SELFPAY | END 2022-11-07 14:37 | LOC: ACC 13:00 | PROVIDERS: PCP Internal Medicine Adolescent Medicine; Visit Provider Internal Medicine Adolescent Medicine | DX: Z51.81 Encounter for therapeutic drug level monitoring (principal); Z79.01 Long term (current) use of anticoagulants; I48.91 Unspecified atrial fibrillation | CPT/HCPCS: 85610; 99211; G0463 ==

== ENCOUNTER 2022-11-17 12:50 | Outpatient (CLI) | payer MEDICARE, OTHER, SELFPAY ==
[2022-11-17 13:50] LABS: PHA INR Fingerstick 2.8 (0.9-1.1)
== END 2022-11-17 13:52 ==
LOC: ACC 12:51
PROVIDERS: PCP Internal Medicine Adolescent Medicine; Visit Provider Internal Medicine Adolescent Medicine
DX: Z79.01 Long term (current) use of anticoagulants (principal); Z51.81 Encounter for therapeutic drug level monitoring; I48.91 Unspecified atrial fibrillation
CPT/HCPCS: 85610; 99211; G0463

== ENCOUNTER 2022-11-18 09:25 | Emergency (ER) | payer MEDICARE, OTHER, SELFPAY ==
[2022-11-18 09:33] VITALS: BP 143/85; PULSE 79; O2SAT 97
--- NOTE | 2022-11-18 09:36 | PC.NURSE ---
Dr. Sanchez at [facility] for pt eval
--- NOTE | 2022-11-18 09:45 | PC.NURSE ---
waiting construction rigger back from dr. portillo
[2022-11-18 09:47] VITALS: BP 143/85; PULSE 78; RESP 20; TEMP 37; O2SAT 97; BMI 28.3
--- NOTE | 2022-11-18 09:47 | HMH.EDGENADL ---
Discharge Plan Disposition Chief Complaint: PAIN Prescriptions Prescriptions: New lidocaine HCl [Aspercreme (lidocaine HCl)] 4 % cream 1 applic topical Q8H PRN (Reason: pain) Qty: 120 0RF Rx Instructions: Apply to anal area before bowel movement with applicator nystatin 100,000 unit/gram cream 1 applic topical DAILY 10 Days Qty: 150 0RF No Action fenofibrate nanocrystallized 145 mg tablet 145 mg PO DAILY metoprolol succinate 50 mg tablet extended release 24 hr 50 mg PO DAILY calcium carbonate-vitamin D3 [Calcium 600 + D(3)] 600 mg calcium- 200 unit capsule 1 cap PO DAILY warfarin [Coumadin] 1 mg tablet 1 mg PO DAILY levothyroxine 100 mcg tablet 100 mcg PO DAILY donepezil [Aricept] 5 mg tablet 5 mg PO DAILY memantine 10 mg tablet 10 mg PO BID hydroxyzine pamoate 25 mg capsule 25 mg PO QHS PRN Label Comments: TAKE ONE CAPSULE BY MOUTH EVERY DAY AT BEDTIME NEEDED spironolactone 25 mg tablet 25 mg PO QAM Qty: 90 4RF Trimo-Bee Jelly 0.025-0.01 % gel 1 each VG .3 times weekly 90 Days Qty: 113.4 5RF furosemide 40 mg tablet See Rx Instructions .ROUTE .COMPLEX Qty: 90 1RF Dose Instruction: TAKE 1 TABLET DAILY Rx Instructions: TAKE 1 TABLET DAILY multivitamin 1 EACH tablet 1 each PO DAILY alendronate 70 MG tablet 70 mg PO WEEKLY Referrals Follow up/Referrals: Robert Ugalde MD [Staff Physician] - As needed Dillon Mcmahan MD [Primary Care Provider] - See instructions (Follow-up with Dr. Mcmahan this week) Activity Restrictions/Add. Instructions Additional Instructions/Restrictions: Do sitz bath 3 times a day, after sitz bath apply steroid cream and nystatin to affected area. Follow-up with Dr. Ugalde if symptoms persist. Return for worsening pain swelling or any other concerns within the next 8 hours. Clinical Impressions Clinical Impression: Anal cellulitis Discharge ED Provider: Edilberto Sanchez General Adult HPI General Chief complaint: PAIN Stated complaint: possible hemroid Time Seen by Provider: 11/18/22 09:30 History of Present Illness HPI narrative: 82-year-old female with history of hyperlipidemia, A-fib, AICD coronary disease presents with pain with bowel movements. She says that she has pain worse with bowel movement, she has mild bright red blood at times. No fever no chills. No abdominal pain. Stools have been formed. She was evaluated by Dr. Magana yesterday and given prescriptions for steroid cream and lidocaine however they have not started these yet. Related Data Home Medications Medication Instructions Recorded Confirmed calcium carbonate 600 mg-vitamin 1 cap PO DAILY Supplement 11/06/17 07/24/22 D3 5 mcg (200 unit) capsule (Calcium 600 + D(3)) warfarin 1 mg tablet (Coumadin) 1 mg PO DAILY Blood thinner 11/06/17 07/24/22 levothyroxine 100 mcg tablet 100 mcg PO DAILY thyroid 02/09/18 07/24/22 donepezil 5 mg tablet (Aricept) 5 mg PO DAILY memory 10/28/18 07/24/22 alendronate 70 mg tablet 70 mg PO WEEKLY . 03/08/19 07/24/22 multivitamin 1 each PO DAILY Supplement 03/08/19 07/24/22 hydroxyzine pamoate 25 mg capsule 25 mg PO QHS PRN 08/22/19 07/24/22 memantine 10 mg tablet 10 mg PO BID 08/22/19 07/24/22 fenofibrate nanocrystallized 145 145 mg PO DAILY 02/20/20 07/24/22 mg tablet metoprolol succinate 50 mg 50 mg PO DAILY 02/13/21 07/24/22 tablet,extended release 24 hr Previous Rx's Medication Instructions Recorded spironolactone 25 mg tablet 25 mg PO QAM Breathing problems 12/11/21 #90 tabs oxyquinoline 0.025 %-sodium lauryl 1 each vaginal .3 times weekly 90 12/13/21 sulfate 0.01 % vaginal gel days #113.4 grams (Trimo-Bee Jelly) furosemide 40 mg tablet See Rx Instructions .Route 03/25/22 .COMPLEX #90 tabs lidocaine HCl 4 % topical cream 1 applic topical Q8H PRN pain #120 11/18/22 (Aspercreme (lidocaine HCl)) grams nystatin 100,000 unit/gram topical 1
[2022-11-18 10:01] VITALS: BP 110/62; PULSE 78; O2SAT 95
--- NOTE | 2022-11-18 10:02 | PC.NURSE ---
radha rounded on pt
--- NOTE | 2022-11-18 10:17 | PC.NURSE ---
calling maki's office for pawan medina to speak with about pt
--- NOTE | 2022-11-18 10:25 | PC.NURSE ---
EULA HALE speaking with Dr. Mcmahan
--- NOTE | 2022-11-18 10:27 | PC.NURSE ---
pawan medina spoke with dr gambino about the pt
[2022-11-18 10:30] VITALS: BP 115/78; PULSE 87; O2SAT 96
[2022-11-18 10:53] VITALS: BP 115/78; PULSE 87; RESP 16; TEMP 36.6
== END 2022-11-18 10:54 | disposition home or self-care (01) ==
PROVIDERS: Emergency Provider Emergency Medicine; PCP Internal Medicine Adolescent Medicine
DX: L03.315 Cellulitis of perineum (principal); Z87.891 Personal history of nicotine dependence
CPT/HCPCS: 99283; 99284

== ENCOUNTER 2022-12-01 14:01 | Outpatient (CLI) | payer MEDICARE, OTHER, SELFPAY ==
[2022-12-01 14:53] LABS: PHA INR Fingerstick 1.3 (0.9-1.1)
== END 2022-12-01 14:55 ==
LOC: ACC 14:02
PROVIDERS: PCP Internal Medicine Adolescent Medicine; Visit Provider Internal Medicine Adolescent Medicine
DX: Z51.81 Encounter for therapeutic drug level monitoring (principal); Z79.01 Long term (current) use of anticoagulants; I48.91 Unspecified atrial fibrillation
CPT/HCPCS: 85610; 99211; G0463

== ENCOUNTER 2022-12-24 13:02 | Outpatient (CLI) | payer MEDICARE, OTHER, SELFPAY ==
[2022-12-24 13:45] LABS: PHA INR Fingerstick 1.4 (0.9-1.1)
== END 2022-12-24 14:14 ==
LOC: ACC 13:03
PROVIDERS: PCP Internal Medicine Adolescent Medicine; Visit Provider Internal Medicine Adolescent Medicine
DX: Z51.81 Encounter for therapeutic drug level monitoring (principal); Z79.01 Long term (current) use of anticoagulants; I48.91 Unspecified atrial fibrillation
CPT/HCPCS: 85610; 99211; G0463

== ENCOUNTER → 2022-12-30 10:23 | Outpatient (POV) | payer MEDICARE, OTHER, SELFPAY | PROVIDERS: Visit Provider Dermatology | DX: Z00.00 Encounter for general adult medical examination without abnormal findings (principal) ==

== ENCOUNTER 2022-12-31 11:29 | Emergency (ER) | payer MEDICARE, OTHER, SELFPAY ==
[2022-12-31 11:36] VITALS: BP 148/72; PULSE 81; RESP 18; O2SAT 99; BMI 27.4
[2022-12-31 11:49] VITALS: BP 132/69; PULSE 77; O2SAT 95
[2022-12-31 12:00] VITALS: BP 135/79; PULSE 90; O2SAT 96
--- NOTE | 2022-12-31 12:03 | HMH.EDABDPAI ---
Discharge Plan Disposition Patient Disposition: Home, Self-Care Condition: Fair Prescriptions Prescriptions: New metronidazole 500 mg tablet 500 mg PO BID Qty: 20 0RF ciprofloxacin HCl 500 mg tablet 500 mg PO BID Qty: 20 0RF No Action fenofibrate nanocrystallized 145 mg tablet 145 mg PO DAILY metoprolol succinate 50 mg tablet extended release 24 hr 50 mg PO DAILY calcium carbonate-vitamin D3 [Calcium 600 + D(3)] 600 mg calcium- 200 unit capsule 1 cap PO DAILY warfarin [Coumadin] 1 mg tablet 1 mg PO DAILY levothyroxine 100 mcg tablet 100 mcg PO DAILY donepezil [Aricept] 5 mg tablet 5 mg PO DAILY memantine 10 mg tablet 10 mg PO BID hydroxyzine pamoate 25 mg capsule 25 mg PO QHS PRN Label Comments: TAKE ONE CAPSULE BY MOUTH EVERY DAY AT BEDTIME NEEDED Premarin 0.625 mg/gram cream 0.3125 mg vaginal .twice weekly Qty: 30 2RF Rx Instructions: apply a blueberry sized amount into the vagina twice weekly Trimo-Bee Jelly 0.025-0.01 % gel 1 each VG .3 times weekly 90 Days Qty: 113.4 5RF furosemide 40 mg tablet See Rx Instructions .ROUTE .COMPLEX Qty: 90 1RF Dose Instruction: TAKE 1 TABLET DAILY Rx Instructions: TAKE 1 TABLET DAILY spironolactone 25 mg tablet 25 mg PO QAM Qty: 90 4RF multivitamin 1 EACH tablet 1 each PO DAILY alendronate 70 MG tablet 70 mg PO WEEKLY lidocaine HCl [Aspercreme (lidocaine HCl)] 4 % cream 1 applic topical Q8H PRN (Reason: pain) Qty: 120 0RF Rx Instructions: Apply to anal area before bowel movement with applicator nystatin 100,000 unit/gram cream 1 applic topical DAILY 10 Days Qty: 150 0RF Referrals Follow up/Referrals: Dillon Mcmahan MD [Primary Care Provider] - See instructions Activity Restrictions/Add. Instructions Additional Instructions/Restrictions: Follow-up with your primary care doctor in about 2 to 3 days to have your Coumadin level (INR) checked. Your work-up today showed that you have diverticulitis which is an inflammation of your colon. You need antibiotics to treat this. You were given your first dose of antibiotics in the emergency department today. You need to start taking oral antibiotics tomorrow for this condition. Return immediately to the emergency department if you feel worse in any way. Clinical Impressions Clinical Impression: Diverticulitis Instructions Patient Instructions: DI for Diverticulitis, DI for Acute Abdominal Pain Discharge ED Provider: Al Uerña Abdominal Pain HPI General Chief Complaint: Abdominal Pain Stated Complaint: abd pain Time Seen by Provider: 12/31/22 12:03 Mode of Arrival: EMS Source of Information: Patient and Spouse Limitations: Altered Mental Status (Dementia.) Description of Symptoms (Recalled from ER Triage Doc. by RN): Patient reports abdominal pain that started last night, resolved and then started again this morning around 1030. Patient reports its a sharp pain that comes and goes. patient denies any nausea, vomiting or diarrhea and had a normal BM this morning. History of Present Illness HPI narrative: The patient presents to the emergency department complaining of lower abdominal pain that began yesterday. She denies any nausea or vomiting or diarrhea. She believes she may have had appendicitis in the past. MD complaint: abdominal pain Related Data Home Medications Medication Instructions Recorded Confirmed calcium carbonate 600 mg-vitamin 1 cap PO DAILY Supplement 11/06/17 12/08/22 D3 5 mcg (200 unit) capsule (Calcium 600 + D(3)) warfarin 1 mg tablet (Coumadin) 1 mg PO DAILY Blood thinner 11/06/17 12/08/22 levothyroxine 100 mcg tablet 100 mcg PO DAILY thyroid 02/09/18 12/08/22 donepezil 5 mg tablet (Aricept) 5 mg PO DAILY memory 10/28/18 12/08/22 alendronate 70 mg tablet 70 mg PO WEEKLY . 03/08/19 12/08/22 multivitamin 1 each PO DAILY Supplement 03/08/1912/08
--- NOTE | 2022-12-31 12:07 | PC.NURSE ---
PT UP TO BATHROOM FOR URINE SAMPLE
[2022-12-31 12:10] LABS: Basophils % 0.2 % (0.1-2.0); Eosinophils # 0.1 K/mm3 (0.0-0.4); Hematocrit 42.5 % (37.0-47.0); Hemoglobin 13.3 g/dL (12.2-16.2); Lymphocytes # 2.1 K/mm3 (0.7-4.5); Lymphocytes % 18.2 % (10-50); Mean Corpuscular HGB Conc 31.3 g/dL (31.8-35.4); Mean Corpuscular Hemoglobin 29.5 pg (27.0-31.2); Mean Corpuscular Volume 94.3 fl (81-99); Mean Platelet Volume 7.8 fl (7.4-10.4); Monocytes # 0.6 K/mm3 (0.1-1.0); Monocytes % 4.8 % (1.7-9.3); Neutrophils # 8.9 K/mm3 (1.8-7.8); Neutrophils % 75.9 % (37.0-80.0); Platelet Count 239 K/mm3 (142-424); Red Blood Count 4.51 M/mm3 (4.20-5.40); Red Cell Distribution Width 13.4 % (11.5-17.5); White Blood Count 11.7 K/mm3 (4.8-10.8)
[2022-12-31 12:13] LABS: Chloride 102 mmol/L (98-107); Potassium 3.6 mmoL/L (3.5-5.1); Sodium 138 mmol/L (136-145)
[2022-12-31 12:15] LABS: Amylase 155 U/L (30-110)
[2022-12-31 12:16] LABS: Alanine Aminotransferase 24 U/L (12-78); Albumin Level 3.9 g/dl (3.5-5.0); Albumin/Globulin Ratio 1.3 (1.1-1.8); Alkaline Phosphatase 33 U/L (38-126); Anion Gap 13.6 mEq/L (5-15); Aspartate Amino Transferase 42 U/L (14-36); Bilirubin,Total 0.4 mg/dl (0.2-1.3); Blood Urea Nitrogen 22 mg/dl (7-17); Calcium 9.6 mg/dl (8.4-10.2); Carbon Dioxide 26 mmol/L (22.0-30.0); Creatinine Clearance Estimated 35 mL/min (50-200); Estimated Glomerular Filt Rate 36 ml/min (>60); GFR (African American) 43 ML/MIN (>60); Globulin 2.9 g/dL (1.3-3.2); Glucose 90 mg/dl (74-100); Lipase 301 U/L (23-300); Total Protein,Serum 6.8 g/dl (6.3-8.2)
[2022-12-31 12:17] LABS: Appearance,Urine CLEAR (Clear); Bilirubin,Urine Negative (Negative); Blood, Urine TRACE-I (Negative); Color,Urine YELLOW (Yellow); Glucose,Urine (UA) Negative (Negative); Ketones,Urine Negative (Negative); Leukocyte Esterase,Urine Negative (Negative); Microscopic, Urine URINE MICROSCOPIC (MICROSCOPIC); Nitrate,Urine Negative (Negative); Protein,Urine Negative (Negative); Specific Gravity, Urine <= 1.005 (1.005-1.030); Urobilinogen,Urine 0.2 EU/dl (0.2)
[2022-12-31 12:29] LABS: Bacteria,Urine Trace /lpf; RBC,Urine Occasional #/hpf (0-3); WBC,Urine Occasional #/hpf (0-3)
--- NOTE | 2022-12-31 12:53 | CT_ITS ---
FINAL REPORT TECHNIQUE: Noncontrast CT exam of the abdomen and pelvis. This study was performed with techniques to keep radiation doses as low as reasonably achievable (ALARA). Individualized dose reduction techniques using automated exposure control or adjustment of mA and/or kV according to the patient''s size were employed. CLINICAL HISTORY: Abdominal pain COMPARISON: 03/08/2019 FINDINGS: Abdomen: Lung bases are clear. A fatty liver is present. The gallbladder has been surgically removed. The spleen, pancreas and adrenal glands have a normal CT appearance in their limited unenhanced state. There are extensive varices present in the subcutaneous abdominal wall, which could indicate central venous occlusion. There is significant stranding surrounding small bowel loops in the left mid abdomen which suggest an inflammatory process such as an enteritis, diverticulitis, or less likely ischemia. There is inflammation of a diverticulum of an anterior small bowel loops seen on image number 53. The kidneys show no stone disease or obstruction. No obvious renal mass is present. No ureteral stones are present. Pelvis: There is trace free fluid in the pelvis. The appendix is not seen but there are no secondary signs of appendicitis. The uterus is normal for age and a pessary is seen in place. No distal ureteral stones are seen. Bladder is unremarkable. IMPRESSION: Inflammatory change adjacent to the mid jejunum in the left abdomen, may be inflammatory, less likely ischemic or neoplastic. Consider follow-up CT in 1-2 days with oral and intravenous contrast. Reviewed, Interpreted and Dictated by Noé Frazier MD Transcribed by Medina Soto Authenticated and [facility]
--- NOTE | 2022-12-31 15:29 | PC.NURSE ---
patient assisted to bathroom and then back to bed
--- NOTE | 2022-12-31 15:41 | PC.NURSE ---
CONTACTED PHARMACY FOR FURTHER EVALUATION OF COUMADIN MONITORING AND ANTIBIOTIC. BEATRICE WILL BE TO SEE PT
--- NOTE | 2022-12-31 15:45 | PC.NURSE ---
BEATRICE IN PHARMACY AT [facility]
[2022-12-31 15:50] LABS: INR 2.28 (0.9-1.1); Prothrombin Time 23.5 seconds (10.1-12.5)
[2022-12-31 16:11] VITALS: BP 136/72; PULSE 88; RESP 18; TEMP 36.7; O2SAT 97
== END 2022-12-31 16:36 | disposition home or self-care (01) ==
PROVIDERS: Emergency Provider Emergency Medicine; PCP Internal Medicine Adolescent Medicine
DX: K57.13 Diverticulitis of small intestine without perforation or abscess with bleeding (principal); R41.82 Altered mental status, unspecified; F03.90 Unspecified dementia, unspecified severity, without behavioral disturbance, psychotic disturbance, mood disturbance, and anxiety; G47.33 Obstructive sleep apnea (adult) (pediatric); G43.909 Migraine, unspecified, not intractable, without status migrainosus
CPT/HCPCS: 74176; 80053; 81001; 82150; 83690; 85025; 85610; 96365; 96375; 99285

== ENCOUNTER 2023-01-05 13:06 | Outpatient (CLI) | payer MEDICARE, OTHER, SELFPAY ==
[2023-01-05 13:50] LABS: PHA INR Fingerstick 2.5 (0.9-1.1)
== END 2023-01-05 13:53 ==
LOC: ACC 13:07
PROVIDERS: PCP Internal Medicine Adolescent Medicine; Visit Provider Internal Medicine Adolescent Medicine
DX: Z51.81 Encounter for therapeutic drug level monitoring (principal); Z79.01 Long term (current) use of anticoagulants; I48.91 Unspecified atrial fibrillation
CPT/HCPCS: 85610; 99211; G0463

== ENCOUNTER 2023-01-14 12:45 | Outpatient (CLI) | payer MEDICARE, OTHER, SELFPAY ==
[2023-01-14 13:26] LABS: PHA INR Fingerstick 1.6 (0.9-1.1)
== END 2023-01-14 13:58 ==
LOC: ACC 12:46
PROVIDERS: PCP Internal Medicine Adolescent Medicine; Visit Provider Internal Medicine Adolescent Medicine
DX: Z51.81 Encounter for therapeutic drug level monitoring (principal); Z79.01 Long term (current) use of anticoagulants; I48.91 Unspecified atrial fibrillation
CPT/HCPCS: 85610; 99211; G0463

== ENCOUNTER 2023-01-26 13:22 | Outpatient (CLI) | payer MEDICARE, OTHER, SELFPAY ==
[2023-01-26 14:20] LABS: PHA INR Fingerstick 2.1 (0.9-1.1)
== END 2023-01-26 14:26 ==
LOC: ACC 13:24
PROVIDERS: PCP Internal Medicine Adolescent Medicine; Visit Provider Internal Medicine Adolescent Medicine
DX: Z79.01 Long term (current) use of anticoagulants (principal); Z51.81 Encounter for therapeutic drug level monitoring; I48.91 Unspecified atrial fibrillation
CPT/HCPCS: 85610; 99211; G0463

== ENCOUNTER → 2023-02-17 11:00 | Outpatient (POV) | payer MEDICARE, OTHER, SELFPAY | PROVIDERS: Visit Provider Dermatology | DX: Z00.00 Encounter for general adult medical examination without abnormal findings (principal) ==

== ENCOUNTER 2023-02-23 12:53 | Outpatient (CLI) | payer MEDICARE, OTHER, SELFPAY | END 2023-02-23 13:54 | LOC: ACC 12:54 | PROVIDERS: PCP Internal Medicine Adolescent Medicine; Visit Provider Internal Medicine Adolescent Medicine | DX: Z79.01 Long term (current) use of anticoagulants (principal); Z51.81 Encounter for therapeutic drug level monitoring; I48.91 Unspecified atrial fibrillation | CPT/HCPCS: 85610; 99211; G0463 ==

== ENCOUNTER 2023-03-25 13:07 | Outpatient (CLI) | payer MEDICARE, OTHER, SELFPAY ==
[2023-03-25 13:42] LABS: PHA INR Fingerstick 2.6 (0.9-1.1)
== END 2023-03-25 14:25 ==
LOC: ACC 13:08
PROVIDERS: PCP Internal Medicine Adolescent Medicine; Visit Provider Internal Medicine Adolescent Medicine
DX: Z79.01 Long term (current) use of anticoagulants (principal); Z51.81 Encounter for therapeutic drug level monitoring; I48.91 Unspecified atrial fibrillation
CPT/HCPCS: 85610; 99211; G0463

== ENCOUNTER 2023-05-06 13:01 | Outpatient (CLI) | payer MEDICARE, OTHER, SELFPAY ==
[2023-05-06 14:08] LABS: PHA INR Fingerstick 2.9 (0.9-1.1)
== END 2023-05-06 14:31 ==
LOC: ACC 13:03
PROVIDERS: PCP Internal Medicine Adolescent Medicine; Visit Provider Internal Medicine Adolescent Medicine
DX: Z79.01 Long term (current) use of anticoagulants (principal); Z51.81 Encounter for therapeutic drug level monitoring; I48.91 Unspecified atrial fibrillation
CPT/HCPCS: 85610; 99211; G0463

== ENCOUNTER → 2023-05-20 02:44 | Outpatient (CLI) | payer MEDICARE, OTHER, SELFPAY ==
[2023-05-20 03:09] LABS: Anion Gap 15.4 mEq/L (5-15); Blood Urea Nitrogen 27 mg/dl (7-17); Calcium 9.8 mg/dl (8.4-10.2); Carbon Dioxide 25 mmol/L (22.0-30.0); Chloride 102 mmol/L (98-107); Estimated Glomerular Filt Rate 39 ml/min (>60); GFR (African American) 47 ML/MIN (>60); Glucose 124 mg/dl (74-100); Potassium 3.4 mmoL/L (3.5-5.1); Sodium 139 mmol/L (136-145)
== END ==
PROVIDERS: PCP Internal Medicine Adolescent Medicine; Visit Provider Nurse Practitioner Family
DX: I10 Essential (primary) hypertension (principal)
CPT/HCPCS: 80048

== ENCOUNTER 2023-06-01 12:59 | Outpatient (CLI) | payer MEDICARE, OTHER, SELFPAY ==
[2023-06-01 14:42] LABS: PHA INR Fingerstick 2.8 (0.9-1.1)
== END 2023-06-01 14:44 ==
LOC: ACC 13:01
PROVIDERS: PCP Internal Medicine Adolescent Medicine; Visit Provider Internal Medicine Adolescent Medicine
DX: Z79.01 Long term (current) use of anticoagulants (principal); Z51.81 Encounter for therapeutic drug level monitoring; I48.91 Unspecified atrial fibrillation
CPT/HCPCS: 85610; 99211; G0463

== ENCOUNTER → 2023-06-09 14:46 | Outpatient (CLI) | payer MEDICARE, OTHER, SELFPAY ==
[2023-06-09 16:03] LABS: Chloride 98 mmol/L (98-107); Sodium 138 mmol/L (136-145)
[2023-06-09 16:06] LABS: Blood Urea Nitrogen 25 mg/dl (7-17); Estimated Glomerular Filt Rate 29 ml/min (>60); GFR (African American) 35 ML/MIN (>60)
[2023-06-09 16:07] LABS: Calcium 9.6 mg/dl (8.4-10.2); Carbon Dioxide 29 mmol/L (22.0-30.0); Glucose 145 mg/dl (74-100)
== END ==
PROVIDERS: PCP Nurse Practitioner Family; Visit Provider Nurse Practitioner Family
DX: I48.91 Unspecified atrial fibrillation (principal)
CPT/HCPCS: 80048

== ENCOUNTER 2023-07-15 13:06 | Outpatient (CLI) | payer MEDICARE, OTHER, SELFPAY ==
[2023-07-15 14:09] LABS: PHA INR Fingerstick 2.6 (0.9-1.1)
== END 2023-07-15 14:18 ==
LOC: ACC 13:08
PROVIDERS: PCP Internal Medicine Adolescent Medicine; Visit Provider Internal Medicine Adolescent Medicine
DX: Z79.01 Long term (current) use of anticoagulants (principal); Z51.81 Encounter for therapeutic drug level monitoring; I48.91 Unspecified atrial fibrillation
CPT/HCPCS: 85610; 99211; G0463

== ENCOUNTER 2023-08-11 14:18 | Outpatient (POV) | payer MEDICARE, OTHER, SELFPAY | END 2023-08-11 23:59 | disposition home or self-care (01) | LOC: SC 14:19 | PROVIDERS: PCP Internal Medicine Adolescent Medicine; Visit Provider Dermatology | DX: Z00.00 Encounter for general adult medical examination without abnormal findings (principal) ==

== ENCOUNTER 2023-08-31 12:53 | Outpatient (CLI) | payer MEDICARE, OTHER, SELFPAY ==
[2023-08-31 14:13] LABS: PHA INR Fingerstick 3.2 (0.9-1.1)
== END 2023-08-31 14:17 ==
LOC: ACC 12:54
PROVIDERS: PCP Internal Medicine Adolescent Medicine; Visit Provider Internal Medicine Adolescent Medicine
DX: Z79.01 Long term (current) use of anticoagulants (principal); Z51.81 Encounter for therapeutic drug level monitoring; I48.91 Unspecified atrial fibrillation
CPT/HCPCS: 85610; 99211; G0463

== ENCOUNTER 2023-09-07 10:42 | Outpatient (CLI) | payer MEDICARE, OTHER, SELFPAY ==
--- NOTE | 2023-09-07 | CA_ITS ---
APPROVED REPORT EXAM: Comprehensive 2D, Doppler, and color-flow Echocardiogram Level Vial Setter: Vaishali Bridges RT(R) Ht: 5 ft 3 in Wt: 165lbs BSA: 1.78 BP: 138/72 mmHg Indications: dyspnea, HTN, hyperlipidemia, SOB, JARRETT, chronic AFIB, Abn EKG, AICD, CAD, JUANITA, hx ASD repair 20+ years ago. 2D Dimensions EF AP4 38.70 % GL Strain -26.1 % M-Mode Dimensions RVDd 3.26 cm (0.9-2.6) LA Diam 4.96 cm (1.9-4.0) LVDd 4.43 cm (3.5-5.7) LVDs 3.58 cm (3.5-5.7) IVSd 0.76 cm (0.6-1.1) PWd 0.84 cm (0.6-1.1) EF (Teich) 39.70% FS 19.20% EDV (Teich) 89.10 mL ESV (Teich) 53.70 mL Tricuspid Valve TR P. Velocity 237.00 cm/s RAP Estimate 10.00 mmHg RVSP 32.50 mmHg Left Ventricle The left ventricle is normal size. The left ventricular systolic function is low normal. There is increased LV wall thickness. Diastolic function is indeterminate due to atrial fibrillation. The septum appears asynchronous. LVEF is 50%. Right Ventricle The right ventricle is difficult to visualize, but grossly appears normal in size. The right ventricular systolic function is normal. Atria The left atrium is moderately dilated. The right atrium mildly dilated. There is no Doppler evidence of interatrial shunt. Aortic Valve Aortic valve is mildly thickened. There is no aortic valvular stenosis. Mild aortic regurgitation. Mitral Valve Mitral valve leaflets are mildly thickened. Mild mitral regurgitation. Tricuspid Valve The tricuspid valve leaflets are thin and pliable. Moderate tricuspid regurgitation. RVSP is 30-35 mmHg. Pulmonic Valve The pulmonary valve is normal in structure. Trace pulmonic regurgitation. Great Vessels The aortic root is normal in size. The ascending aorta is normal in size. IVC is normal in size and collapses >50% with inspiration. Pericardium There is no pericardial effusion. Other Information Study Quality: Fair Conclusion Low normal LV systolic function (LVEF 50%). Asynchronous septum. Biatrial dilation. Mild MR, mild AI. Moderate TR. Elevated RVSP 30-35 mmHg. Electronically signed by : Kamilah Montero MD 09/08/2023 22:36:47
== END 2023-09-07 23:59 ==
LOC: RT 10:42
PROVIDERS: PCP Internal Medicine Adolescent Medicine; Visit Provider Internal Medicine
DX: I11.9 Hypertensive heart disease without heart failure (principal); I25.10 Atherosclerotic heart disease of native coronary artery without angina pectoris; I48.20 Chronic atrial fibrillation, unspecified; I86.8 Varicose veins of other specified sites; R06.00 Dyspnea, unspecified; E78.5 Hyperlipidemia, unspecified
CPT/HCPCS: 93306

== ENCOUNTER 2023-09-28 13:03 | Outpatient (CLI) | payer MEDICARE, OTHER, SELFPAY ==
[2023-09-28 13:22] LABS: PHA INR Fingerstick 2.2 (0.9-1.1)
== END 2023-09-28 13:23 ==
LOC: ACC 13:04
PROVIDERS: PCP Internal Medicine Adolescent Medicine; Visit Provider Internal Medicine Adolescent Medicine
DX: Z79.01 Long term (current) use of anticoagulants (principal); I48.91 Unspecified atrial fibrillation; Z51.81 Encounter for therapeutic drug level monitoring
CPT/HCPCS: 85610; 99211; G0463

== ENCOUNTER 2023-11-18 14:32 | Outpatient (CLI) | payer MEDICARE, OTHER, SELFPAY ==
[2023-11-18 15:31] LABS: PHA INR Fingerstick 2.3 (0.9-1.1)
== END 2023-11-18 15:39 ==
LOC: ACC 14:33
PROVIDERS: PCP Internal Medicine Adolescent Medicine; Visit Provider Internal Medicine Adolescent Medicine
DX: Z79.01 Long term (current) use of anticoagulants (principal); I48.21 Permanent atrial fibrillation; Z51.81 Encounter for therapeutic drug level monitoring
CPT/HCPCS: 85610; 99211; G0463

== ENCOUNTER 2023-12-30 15:17 | Outpatient (CLI) | payer MEDICARE, OTHER, SELFPAY ==
[2023-12-30 15:40] LABS: PHA INR Fingerstick 2.4 (0.9-1.1)
== END 2023-12-30 15:42 ==
LOC: ACC 15:18
PROVIDERS: PCP Internal Medicine Adolescent Medicine; Visit Provider Internal Medicine Adolescent Medicine
DX: Z79.01 Long term (current) use of anticoagulants (principal); I48.91 Unspecified atrial fibrillation
CPT/HCPCS: 85610; 99211; G0463

== ENCOUNTER 2024-04-06 11:51 | Outpatient (CLI) | payer MEDICARE, OTHER, SELFPAY ==
[2024-04-06 13:19] LABS: PHA INR Fingerstick 2.5 (0.9-1.1)
== END 2024-04-06 23:59 | disposition home or self-care (01) ==
LOC: ACC 11:56
PROVIDERS: PCP Internal Medicine Adolescent Medicine; Visit Provider Internal Medicine Adolescent Medicine
DX: Z79.01 Long term (current) use of anticoagulants (principal); I48.91 Unspecified atrial fibrillation
CPT/HCPCS: 85610; 99211; G0463

== ENCOUNTER 2024-05-10 15:10 | Outpatient (CLI) | payer MEDICARE, OTHER, SELFPAY ==
[2024-05-10 16:53] LABS: Adenovirus F 40/41, stool Not Detected (NotDetected); Astrovirus Not Detected (NotDetected); Campylobacter Not Detected (NotDetected); Clostridium Difficile A/B, PCR Not Detected (NotDetected); Cryptosporidium Not Detected (NotDetected); Cyclospora Cayetanesis Not Detected (NotDetected); Entamoeba histolytica Not Detected (NotDetected); Enteroaggregative E coli Not Detected (NotDetected); Enteropathogenic E coli Not Detected (NotDetected); Enterotoxigenic E coli Not Detected (NotDetected); Giardia lamblia Not Detected (NotDetected); Norovirus Not Detected (NotDetected); Plesimonas Shigalloides, PCR Not Detected (NotDetected); Rotavirus A Not Detected (NotDetected); Salmonella, PCR Not Detected (NotDetected); Sapovirus Not Detected (NotDetected); Shiga-like toxin E coli Not Detected (NotDetected); Shigella Enterovasive E coli Not Detected (NotDetected); Vibrio Cholerae Not Detected (NotDetected); Vibrio, PCR Not Detected (NotDetected); Yersinia Entercolitica, PCR Not Detected (NotDetected)
== END 2024-05-10 23:59 | disposition home or self-care (01) ==
LOC: LAB 15:11
PROVIDERS: PCP Internal Medicine Adolescent Medicine; Visit Provider Internal Medicine Gastroenterology
DX: R19.7 Diarrhea, unspecified (principal)
CPT/HCPCS: 87205; 87506

== ENCOUNTER 2024-05-12 11:59 | Day surgery (SDC) | payer MEDICARE, OTHER, SELFPAY ==
[2024-05-11 11:21] VITALS: BMI 26.7
--- NOTE | 2024-05-11 13:50 | SUR.PREOP ---
Per Ajay, NAHOMY- pt is able to proceed with colonoscopy and does not require further cardiac clearance. NAHOMY Moss is also aware of the pt still continuing coumadin, MD Arizmendi is aware as well. They are both agreeable to proceed with procedure on 05/12/24.
[2024-05-12 12:16] VITALS: BP 128/75; PULSE 115; RESP 16; TEMP 36.6; O2SAT 95
[2024-05-12] MEDS: LACTATED RINGERS 1000ML 1,000 ML 999 ML IV (12:23)
[2024-05-12] MEDS: SODIUM PHOS/BIPHOSPHATE FLEET 133ML ENEMA 133 ML RC (12:27)
--- NOTE | 2024-05-12 12:46 | EXP.ANES.CKL ---
[facility] Disclaimer: The information contained in this section may have been updated after the patient was seen, as this information can be updated by other users. Medical History Dementia Abdominal varicosities Typical angina TMJ (dislocation of temporomandibular joint) Coronary artery disease JUANITA (obstructive sleep apnea) Abnormal electrocardiography Atypical angina retirement current use of anticoagulant HLD (hyperlipidemia) AICD at end of battery life Hypertensive disorder Chronic atrial fibrillation Surgical History H/O colonoscopy Hx of atrial septal defect repair Family History Other No significant family history Social History Smoking Status: Never smoker alcohol intake: current alcohol intake frequency: holidays/special occasions only substance use type: denies use current occupational status: retired Travel in the last 8 weeks: None household members: spouse housing: house current occupation: RETIRED PHARM. current occupational exposures/hazards: No caffeine: No [facility] Anesthesia Checklist Patient Identification Patient Identification: Verbal (Name & ) Structural Data Admitted From: Home Planned Operative Procedure/s: colonoscopy Consent for Planned Operative Procedure(s) Verified: Yes NPO Status Verified Time NPO: 00:00 Additional verifications Anesthesia Reactions: No Hx Blood Transfusions: No Blood Transfusion Reaction: No Airway Assessment Mallampati Score:: Class II C-Spine Mobility Assessed: Yes TMJ Mobility Assessed: Yes Dentition: Good Dentition Neurological Assessment Level of Consciousness: Awake, Alert and Appropriate Anesthesia Plan Anesthesia Risk discussed: Yes Anesthesia Plan: Verified ASA Class: III Anesthesia Type: MAC
[2024-05-12 13:12] VITALS: O2SAT 95
--- NOTE | 2024-05-12 13:13 | HMH.PROCNOTE ---
[facility] Procedure Note Date: 05/12/24 Time: 13:13 Procedure Note:: Colonoscopy Procedure Report: Colonoscopy with cold snare polypectomy and cold biopsies Endoscopist: Rehan Arizmendi II, MD Referring physician: Dillon Mcmahan M.D. Date of Procedure: May 12, 2024 Equipment: Olympus 190 variable stiffness pediatric colonoscope Sedation: MAC sedation Indication: Mrs. Pedersen is a 84-year-old female who is here for diagnostic colonoscopy secondary to acute and chronic diarrhea. She has been dealing with this for 1.5 years but over the last 2 or 3 weeks she is having up to 15 or 20 bowel movements daily. She has a lot of perianal excoriation, burning and skin breakdown. She reports fecal urgency and frequency with multiple bouts of fecal incontinence daily. Her last colonoscopy was 20 years ago. She has lost 5 to 6 pounds in the last few weeks. She did see Dr. Robert Schulz (colorectal surgery) in [place] in regard to her anal fissure. She had diverticulitis a couple of years ago. She was found to have E. coli by PCR testing in 2018. She has no gassiness or bloating. There is no odor to her bowel movements. She has not been on any recent antibiotics. Her recent PCR stool panel was negative for C. difficile or other bacterial or viral pathogens. Procedure: Prior to the procedure, a history and physical exam was performed, and patient's medications and allergies were reviewed. The risks, benefits and alternatives of the sedation and procedure were discussed with the patient. All questions were answered and informed consent was obtained. The patient was brought to the procedure room. Patient identification and proposed procedure were verified by the physician and the nurse. The patient was placed in a left lateral decubitus position and the scope was passed under direct vision. Throughout the procedure, the patient's blood pressure, pulse, and oxygen saturations were monitored continuously. The colonoscopy was accomplished without difficulty. The patient tolerated the procedure well. Findings: On digital rectal examination there was evidence of excoriation and skin breakdown with external tags around the perianal junction. 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 The colonoscope was introduced through the anal canal to the rectum and advanced to the cecum. The ileocecal valve and appendiceal orifice were identified. The scope was advanced a short distance into the ileum which appeared grossly normal. The scope was then withdrawn into the colon. Random biopsies were taken x 5 of the right colon to rule out microscopic colitis. The surface mucosa was normal with vascular pattern but there was minor reticular/cobblestoning pattern suggestive of microscopic colitis. There was a 5 mm polyp in the ascending colon that was removed via cold snare polypectomy. The remaining cecum, ascending and transverse colon and mucosa were grossly normal. There were scattered extensive diverticuli throughout the descending and sigmoid colon (LEFT colon). Upon retroflexion within the rectum there were grade 1-2 internal hemorrhoids. At the anal verge there was a shallow 10 mm ulceration and then there was an adjacent 8 to 9 mm marginated ulcer. The margins of the ulcer that were biopsied. Impression: 1. 9 and 10 mm rectal ulcerations at pectinate line 2. Diminutive ascending colon polyp 3. Left-sided diverticulosis 4. Posterior midline anal fissure chronic 5. Small grade 1-2 internal hemorrhoids Plan: I will follow-up the biopsies. The rectal ulceration may be a solitary rectal ulcer (benign) and would like to exclude other etiologies (infectious proctitis). Biopsies will be helpful. If this remains a problem, I would like for her to follow-up again with colorectal surgery. I do feel that a large part of her excoriation is because of the bowel frequency and continued contamination of the cutaneous perineum with fecal content. I do suspect possible microscopic colitis but we will need to check biopsies. If the biopsies are normal, I would then consider binders (bulking/binding FiberCon for Colestid).
[2024-05-12 13:45] VITALS: BP 88/38; PULSE 94; RESP 20; TEMP 36.1; O2SAT 92
[2024-05-12 13:55] VITALS: BP 139/73; PULSE 94; RESP 18; O2SAT 97
[2024-05-12 14:05] VITALS: BP 148/75; PULSE 71; RESP 18; O2SAT 97
[2024-05-12 14:15] VITALS: BP 142/84; PULSE 68; RESP 18; O2SAT 96
== END 2024-05-12 15:10 | disposition home or self-care (01) ==
PROVIDERS: PCP Internal Medicine Adolescent Medicine; Visit Provider Internal Medicine Gastroenterology
PROC: (CPT 45380; principal; 2024-05-12 13:30)
DX: K52.9 Noninfective gastroenteritis and colitis, unspecified (principal); R15.2 Fecal urgency; R15.9 Full incontinence of feces; R63.4 Abnormal weight loss; Z68.26 Body mass index [BMI] 26.0-26.9, adult; K64.8 Other hemorrhoids; K60.1 Chronic anal fissure; K57.30 Diverticulosis of large intestine without perforation or abscess without bleeding; K63.5 Polyp of colon
CPT/HCPCS: 45380; 45385; J7120

== ENCOUNTER 2024-05-15 01:29 | Outpatient (CLI) | payer MEDICARE, OTHER, SELFPAY ==
[2024-05-15 02:29] LABS: Bilirubin,Urine Negative (Negative); Blood, Urine 2+ (Negative); Color,Urine YELLOW (Yellow); Glucose,Urine (UA) Negative (Negative); Ketones,Urine Negative (Negative); Leukocyte Esterase,Urine 2+ (Negative); Nitrate,Urine NEGATIVE (Negative); PH,Urine 5.5 (5.0-8.5); Protein,Urine 1+ (Negative); Specific Gravity, Urine 1.025 (1.005-1.030); Urobilinogen,Urine 0.2 EU/dl (0.2)
[2024-05-15 02:32] LABS: Appearance,Urine Cloudy (Clear); Microscopic, Urine URINE MICROSCOPIC (MICROSCOPIC)
[2024-05-15 02:46] LABS: RBC,Urine 20-50 #/hpf (0-3); WBC,Urine 50-100 #/hpf (0-3)
[2024-05-15 02:47] LABS: Amorphous Sediment,Urine 1+ /lpf; Bacteria,Urine 1+ /lpf; Squamous Epithelial Cell,Urine Occasional #/hpf (0-5)
== END 2024-05-15 23:59 | disposition home or self-care (01) ==
LOC: LAB.DROPOF 01:30
PROVIDERS: PCP Internal Medicine Adolescent Medicine; Visit Provider Internal Medicine Adolescent Medicine
DX: R82.79 Other abnormal findings on microbiological examination of urine (principal)
CPT/HCPCS: 81015; 87086

== ENCOUNTER 2024-05-16 13:20 | Outpatient (CLI) | payer MEDICARE, OTHER, SELFPAY ==
[2024-05-16 14:04] LABS: PHA INR Fingerstick 2.8 (0.9-1.1)
== END 2024-05-16 23:59 | disposition home or self-care (01) ==
LOC: ACC 13:22
PROVIDERS: PCP Internal Medicine Adolescent Medicine; Visit Provider Internal Medicine Adolescent Medicine
DX: Z79.01 Long term (current) use of anticoagulants (principal); I48.91 Unspecified atrial fibrillation
CPT/HCPCS: 85610; 99211; G0463

== ENCOUNTER 2024-06-03 11:53 | Outpatient (CLI) | payer MEDICARE, OTHER, SELFPAY ==
[2024-06-03 12:14] LABS: Adenovirus F 40/41, stool Not Detected (NotDetected); Astrovirus Not Detected (NotDetected); Campylobacter Not Detected (NotDetected); Clostridium Difficile A/B, PCR Not Detected (NotDetected); Cryptosporidium Not Detected (NotDetected); Cyclospora Cayetanesis Not Detected (NotDetected); Entamoeba histolytica Not Detected (NotDetected); Enteroaggregative E coli Not Detected (NotDetected); Enteropathogenic E coli Not Detected (NotDetected); Enterotoxigenic E coli Not Detected (NotDetected); Giardia lamblia Not Detected (NotDetected); Norovirus Not Detected (NotDetected); Plesimonas Shigalloides, PCR Not Detected (NotDetected); Rotavirus A Not Detected (NotDetected); Salmonella, PCR Not Detected (NotDetected); Sapovirus Not Detected (NotDetected); Shiga-like toxin E coli Not Detected (NotDetected); Shigella Enterovasive E coli Not Detected (NotDetected); Vibrio Cholerae Not Detected (NotDetected); Vibrio, PCR Not Detected (NotDetected); Yersinia Entercolitica, PCR Not Detected (NotDetected)
[2024-06-03 13:09] LABS: Albumin Level 4.1 g/dl (3.5-5.0); Chloride 102 mmol/L (98-107); Potassium 4.3 mmoL/L (3.5-5.1); Sodium 137 mmol/L (136-145)
[2024-06-03 13:12] LABS: Alanine Aminotransferase 24 U/L (12-78); Albumin/Globulin Ratio 1.5 (1.1-1.8); Alkaline Phosphatase 39 U/L (38-126); Anion Gap 15.3 mEq/L (5-15); Aspartate Amino Transferase 44 U/L (14-36); Bilirubin,Total 0.6 mg/dl (0.2-1.3); Blood Urea Nitrogen 21 mg/dl (7-17); Carbon Dioxide 24 mmol/L (22.0-30.0); Estimated Glomerular Filt Rate 43 ml/min (>60); GFR (African American) 52 ML/MIN (>60); Globulin 2.8 g/dL (1.3-3.2); Glucose 103 mg/dl (74-100); Total Protein,Serum 6.9 g/dl (6.3-8.2)
[2024-06-03 13:15] LABS: Basophils # 0.1 K/mm3 (0-0.2); Basophils % 0.6 % (0.1-2.0); Eosinophils # 0.4 K/mm3 (0.0-0.4); Eosinophils % 4.6 % (0.1-12.0); Hematocrit 43.5 % (37.0-47.0); Hemoglobin 14.3 g/dL (12.2-16.2); Lymphocytes # 2.1 K/mm3 (0.7-4.5); Lymphocytes % 25.6 % (10-50); Mean Corpuscular HGB Conc 32.8 g/dL (31.8-35.4); Mean Corpuscular Hemoglobin 30.8 pg (27.0-31.2); Mean Corpuscular Volume 93.8 fl (81-99); Mean Platelet Volume 7.9 fl (7.4-10.4); Monocytes # 0.6 K/mm3 (0.1-1.0); Monocytes % 7.6 % (1.7-9.3); Neutrophils # 5.1 K/mm3 (1.8-7.8); Neutrophils % 61.6 % (37.0-80.0); Platelet Count 318 K/mm3 (142-424); Red Blood Count 4.63 M/mm3 (4.20-5.40); Red Cell Distribution Width 14.1 % (11.5-17.5); White Blood Count 8.4 K/mm3 (4.8-10.8)
[2024-06-03 13:44] LABS: Thyroid Stimulating Hormone 3.47 uIU/mL (0.465-4.68)
[2024-06-10 21:09] LABS: Lactoferrin, Fecal, Quant. 73.69 ug/mL(g) (0.00-7.24)
== END 2024-06-03 23:59 | disposition home or self-care (01) ==
LOC: LAB 11:55
PROVIDERS: Internal Medicine Gastroenterology; PCP Internal Medicine Adolescent Medicine; Visit Provider Nurse Practitioner Family
DX: R19.7 Diarrhea, unspecified (principal); E03.9 Hypothyroidism, unspecified
CPT/HCPCS: 36415; 80053; 83630; 83993; 84443; 85025; 87506

== ENCOUNTER 2024-06-27 14:15 | Outpatient (CLI) | payer MEDICARE, OTHER, SELFPAY ==
[2024-06-27 15:13] LABS: PHA INR Fingerstick 3.5 (0.9-1.1)
== END 2024-06-27 15:19 ==
LOC: ACC 14:17
PROVIDERS: PCP Internal Medicine Adolescent Medicine; Visit Provider Internal Medicine Adolescent Medicine
DX: Z79.01 Long term (current) use of anticoagulants (principal); I48.91 Unspecified atrial fibrillation
CPT/HCPCS: 85610; 99211; G0463

== ENCOUNTER 2024-07-13 16:16 | Outpatient (CLI) | payer MEDICARE, OTHER, SELFPAY ==
[2024-07-13 17:02] LABS: Red Blood Count 4.26 M/mm3 (4.20-5.40); White Blood Count 9.3 K/mm3 (4.8-10.8)
[2024-07-13 17:03] LABS: Basophils # 0.1 K/mm3 (0-0.2); Basophils % 0.6 % (0.1-2.0); Eosinophils # 0.1 K/mm3 (0.0-0.4); Hematocrit 37.4 % (37.0-47.0); Hemoglobin 12.5 g/dL (12.2-16.2); Lymphocytes # 1.8 K/mm3 (0.7-4.5); Lymphocytes % 19.3 % (10-50); Mean Corpuscular HGB Conc 33.4 g/dL (31.8-35.4); Mean Corpuscular Hemoglobin 29.3 pg (27.0-31.2); Mean Corpuscular Volume 87.8 fl (81-99); Mean Platelet Volume 10.4 fl (7.4-10.4); Monocytes # 0.8 K/mm3 (0.1-1.0); Monocytes % 8.8 % (1.7-9.3); Neutrophils # 6.5 K/mm3 (1.8-7.8); Neutrophils % 69.9 % (37.0-80.0); Platelet Count 310 K/mm3 (142-424); Red Cell Distribution Width 14.4 % (11.5-17.5)
[2024-07-13 17:37] LABS: Blood Urea Nitrogen 19 mg/dl (7-17); Carbon Dioxide 30 mmol/L (22.0-30.0); Chloride 103 mmol/L (98-107); Estimated Glomerular Filt Rate 60 ml/min (>60); GFR (African American) 72 ML/MIN (>60); Glucose 122 mg/dl (74-100); Sodium 140 mmol/L (136-145)
[2024-07-13 17:51] LABS: Free T4 (Free Thyroxine) 2.14 ng/dl (0.78-2.19)
[2024-07-13 18:05] LABS: Thyroid Stimulating Hormone 2.28 uIU/mL (0.465-4.68)
[2024-07-13 21:10] LABS: Anion Gap 9.8 mEq/L (5-15)
[2024-07-13 21:18] LABS: Potassium 2.8 mmoL/L (3.5-5.1)
[2024-07-16 02:10] LABS: Triiodothyronine (T3) Free 2.7 pg/mL (2.0-4.4)
== END 2024-07-13 23:59 | disposition home or self-care (01) ==
LOC: LAB.DROPOF 16:18
PROVIDERS: PCP Internal Medicine Adolescent Medicine; Visit Provider Internal Medicine Adolescent Medicine
DX: I48.3 Typical atrial flutter (principal); K58.0 Irritable bowel syndrome with diarrhea; R41.89 Other symptoms and signs involving cognitive functions and awareness; K57.32 Diverticulitis of large intestine without perforation or abscess without bleeding; M85.80 Other specified disorders of bone density and structure, unspecified site; Z95.0 Presence of cardiac pacemaker; I27.20 Pulmonary hypertension, unspecified; Q21.10 Atrial septal defect, unspecified; E78.5 Hyperlipidemia, unspecified; I10 Essential (primary) hypertension; Z79.899 Other long term (current) drug therapy
CPT/HCPCS: 80048; 84439; 84443; 84481; 85025

== ENCOUNTER 2024-07-21 14:22 | Outpatient (CLI) | payer MEDICARE, OTHER, SELFPAY ==
[2024-07-21 15:12] LABS: Chloride 104 mmol/L (98-107); Sodium 137 mmol/L (136-145)
[2024-07-21 15:15] LABS: Blood Urea Nitrogen 26 mg/dl (7-17); Calcium 9.6 mg/dl (8.4-10.2); Carbon Dioxide 25 mmol/L (22.0-30.0); Estimated Glomerular Filt Rate 53 ml/min (>60); GFR (African American) 64 ML/MIN (>60); Glucose 85 mg/dl (74-100)
== END 2024-07-21 23:59 | disposition home or self-care (01) ==
LOC: LAB 14:24 → LAB.DROPOF 15:17
PROVIDERS: PCP Nurse Practitioner Family; Visit Provider Nurse Practitioner Family
DX: E87.6 Hypokalemia (principal)
CPT/HCPCS: 80048

== ENCOUNTER 2024-09-03 20:55 | Emergency (ER) | payer MEDICARE, OTHER, SELFPAY ==
[2024-09-03 20:55] VITALS: BP 106/78; PULSE 91; RESP 18; TEMP 36.6; O2SAT 96; BMI 23.1
--- NOTE | 2024-09-03 20:56 | ECG_ITS ---
APPROVED REPORT Exam: Resting ECG HR:91 bpm ECG Measurements Heart Rate 91 AXES QRSd 88 QRS 62 QT 314 T 148 QTc 362 Conclusion ATRIAL FIBRILLATION WITH ABERRANT CONDUCTION OR VENTRICULAR PREMATURE COMPLEXES INDETERMINATE AXIS POSSIBLE RIGHT VENTRICULAR CONDUCTION DELAY [RSR (QR) IN V1/V2] ST DEVIATION AND MODERATE T-WAVE ABNORMALITY, CONSIDER LATERAL ISCHEMIA [-0.1+ mV T-WAVE IN I/aVL/V5/V6] ST DEVIATION AND MODERATE T-WAVE ABNORMALITY, CONSIDER INFERIOR ISCHEMIA [-0.1+ mV T-WAVE IN II/aVF] ABNORMAL ECG UNCONFIRMED REPORT Electronically signed by : Sharan Bull, 09/04/2024 00:37:20
[2024-09-03 21:04] VITALS: BP 106/78; PULSE 91; RESP 16; TEMP 36.6; O2SAT 98
--- NOTE | 2024-09-03 21:04 | CT_ITS ---
PROCEDURE INFORMATION: Exam: CTA Abdomen and Pelvis With Contrast Exam date and time: 09/03/2024 9:32 PM Age: 84 years old Clinical indication: Injury or trauma; Fall; Additional info: Trauma, critical injury suspected TECHNIQUE: Imaging protocol: Computed tomographic angiography of the abdomen and pelvis with contrast. Exam focused on the arteries. 3D rendering (Not supervised by radiologist): MIP and/or 3D reconstructed images were created by the technologist. Radiation optimization: All CT scans at this facility use at least one of these dose optimization techniques: automated exposure control; mA and/or kV adjustment per patient size (includes targeted exams where dose is matched to clinical indication); or iterative reconstruction. Contrast material: ISOVUE; Contrast volume: 72 ml; Contrast route: INTRAVENOUS (IV); COMPARISON: CT ABDOMEN PELVIS WO CON 12/31/2022 1:25 PM FINDINGS: Pleural spaces: No lung contusion or pneumothorax. Heart: Mild cardiomegaly. Coronary arteries: Coronary artery calcifications. Esophagus: The esophagus is normal. Pulmonary arteries: No central or large peripheral pulmonary emboli. Aorta: Ectatic aortic arch. Vessel origins are patent. The aorta demonstrates severe atherosclerotic calcification and ectasia. Celiac trunk and mesenteric arteries: No occlusion or significant stenosis. Renal arteries: No occlusion or significant stenosis. Right iliac arteries: No occlusion or significant stenosis. Left iliac arteries: No occlusion or significant stenosis. Other arteries: Visceral arteries are patent. Veins: Anterior abdominal wall varices. Coronal image 11/32 Mild sigmoid bowel wall thickening image 8/181. Portal vein, splenic vein, SMV are patent. Liver: Fatty infiltration of the liver. Gallbladder and biliary ducts: There has been a cholecystectomy. Pancreas: Pancreas appears normal. Spleen: Spleen is normal Adrenal glands: The adrenal glands appear normal. Kidneys and ureters: The kidneys are normal. Stomach and bowel: The stomach is normal. Scattered colonic diverticula. Appendix: No secondary signs of appendicitis. Intraperitoneal space: Unremarkable. No free air. No significant fluid collection. Lymph nodes: No free air or fluid or adenopathy. Urinary bladder: The bladder is normal. Reproductive: Normal uterus. Pessary seen in the upper vaginal fall. Bones/joints: Mild superior endplate deformity of L1. Mild superior endplate deformity of T11. Near vertebral plana compression deformity T6. Prior sternotomy. Soft tissues: Unremarkable. Other findings: No evidence for aneurysm or dissection. No visceral organ injury. IMPRESSION: 1. Ectatic aortic arch. Vessel origins are patent. 2. No evidence for aneurysm or dissection. 3. The aorta demonstrates severe atherosclerotic calcification and ectasia. 4. Visceral arteries are patent. 5. No central or large peripheral pulmonary emboli. 6. No lung contusion or pneumothorax. 7. No free air or fluid or adenopathy. 8. No visceral organ injury. 9. Anterior abdominal wall varices. Coronal image 32 10. Mild sigmoid bowel wall thickening image 181. Mild colitis not excluded. 11. Fatty infiltration of the liver. 12. Mild superior endplate deformity of L1. Age indeterminate. 13. Mild superior endplate deformity of T11. Age indeterminate. 14. Near vertebral plana compression deformity T6 . Age indeterminate.
--- NOTE | 2024-09-03 21:04 | CT_ITS ---
PROCEDURE INFORMATION: Exam: CT Cervical Spine Without Contrast Exam date and time: 09/03/2024 9:18 PM Age: 84 years old Clinical indication: Injury or trauma; Fall; Additional info: Trauma, critical injury suspected TECHNIQUE: Imaging protocol: Computed tomography of the cervical spine without contrast. Radiation optimization: All CT scans at this facility use at least one of these dose optimization techniques: automated exposure control; mA and/or kV adjustment per patient size (includes targeted exams where dose is matched to clinical indication); or iterative reconstruction. COMPARISON: CT CERVICAL SPINE WO CON 09/03/2024 9:18 PM FINDINGS: Bones: No acute fracture. Normal alignment. Degenerative changes at C5-C6 and C6-C7 with disc osteophyte complexes resulting in neuroforaminal and central canal narrowing. Multilevel facet arthropathy. Lungs: Lung apices are normal. Soft tissues: Unremarkable. IMPRESSION: No acute findings.
--- NOTE | 2024-09-03 21:04 | CT_ITS ---
PROCEDURE INFORMATION: Exam: CTA Chest With Contrast Exam date and time: 09/03/2024 9:32 PM Age: 84 years old Clinical indication: Injury or trauma; Fall; Additional info: Trauma, critical injury suspected TECHNIQUE: Imaging protocol: Computed tomographic angiography of the chest with contrast. Exam focused on the arteries. 3D rendering (Not supervised by radiologist): MIP and/or 3D reconstructed images were created by the technologist. Radiation optimization: All CT scans at this facility use at least one of these dose optimization techniques: automated exposure control; mA and/or kV adjustment per patient size (includes targeted exams where dose is matched to clinical indication); or iterative reconstruction. Contrast material: ISOVUE; Contrast volume: 72 ml; Contrast route: INTRAVENOUS (IV); COMPARISON: CT ANGIO CHEST 09/03/2024 9:32 PM FINDINGS: Pulmonary arteries: No central or large peripheral pulmonary emboli. Aorta: Ectatic aortic arch. The aorta demonstrates severe atherosclerotic calcification and ectasia. Other arteries: Visceral arteries are patent. Lungs: Unremarkable. No consolidation. No masses. Pleural spaces: No lung contusion or pneumothorax. Heart: Unremarkable. No cardiomegaly. No pericardial effusion. Lymph nodes: Unremarkable. No enlarged lymph nodes. Bones/joints: Mild superior endplate deformity of L1. Mild superior endplate deformity of T11. Near vertebral plana compression deformity T6. Sternotomy wires. Soft tissues: Unremarkable. Other findings: No evidence for aneurysm or dissection. IMPRESSION: 1. No evidence of traumatic chest injury. 2. Ectatic aortic arch. 3. No evidence for aneurysm or dissection. 4. The aorta demonstrates severe atherosclerotic calcification and ectasia. 5. Visceral arteries are patent. 6. No central or large peripheral pulmonary emboli. 7. No lung contusion or pneumothorax. 8. Mild superior endplate deformity of L1. 9. Mild superior endplate deformity of T11. 10. Near vertebral plana compression deformity T6 11. Sternotomy wires.
--- NOTE | 2024-09-03 21:04 | CT_ITS ---
PROCEDURE INFORMATION: Exam: CT Thoracic Spine Without Contrast Exam date and time: 09/03/2024 9:18 PM Age: 84 years old Clinical indication: Injury or trauma; Fall; Additional info: Trauma, critical injury suspected TECHNIQUE: Imaging protocol: Computed tomography of the thoracic spine without contrast. Radiation optimization: All CT scans at this facility use at least one of these dose optimization techniques: automated exposure control; mA and/or kV adjustment per patient size (includes targeted exams where dose is matched to clinical indication); or iterative reconstruction. COMPARISON: CT THORACIC SPINE WO CON 03/08/2019 4:51 AM FINDINGS: Bones/joints: Mild kyphosis at the T6 level. Diffuse osteopenia. Severe wedge compression fracture T6 with near vertebral plana compression fracture; age indeterminate. There is 2 mm retropulsion of bone into the canal at this level. Minimal superior endplate deformity T11. Re-demonstration of moderate superior endplate deformity of L1. Soft tissues: Unremarkable. Vasculature: Prominent proximal pulmonary arteries. Moderate to severe calcific atherosclerosis of the aorta. IMPRESSION: 1. Mild kyphosis at the T6 level. 2. Diffuse osteopenia. 3. Severe wedge compression fracture T6 with near vertebral plana compression fracture; age indeterminate. There is 2 mm retropulsion of bone into the canal at this level. MRI may be helpful. 4. Minimal superior endplate deformity T11. 5. Re-demonstration of moderate superior endplate deformity of L1. 6. Prominent proximal pulmonary arteries. 7. Moderate to severe calcific atherosclerosis of the aorta.
--- NOTE | 2024-09-03 21:04 | XR_ITS ---
PROCEDURE INFORMATION: Exam: XR Chest Exam date and time: 09/03/2024 9:01 PM Age: 84 years old Clinical indication: Injury or trauma; Fall; Other: Pain TECHNIQUE: Imaging protocol: Radiologic exam of the chest. Views: 1 view. COMPARISON: CR XR CHEST 2V 07/11/2021 4:07 PM FINDINGS: Lungs: Unremarkable. No consolidation. Pleural spaces: Unremarkable. No pleural effusion. No pneumothorax. Heart/Mediastinum: Mild cardiomegaly. Prior CABG. Bones/joints: Unremarkable. IMPRESSION: No acute findings.
--- NOTE | 2024-09-03 21:04 | XR_ITS ---
PROCEDURE INFORMATION: Exam: XR Pelvis Exam date and time: 09/03/2024 9:00 PM Age: 84 years old Clinical indication: Injury or trauma; Fall; Other: Pain TECHNIQUE: Imaging protocol: Radiologic exam of the pelvis. Views: 1 or 2 view. COMPARISON: CT ABDOMEN PELVIS WO CON 12/31/2022 1:25 PM FINDINGS: Bones/joints: Unremarkable. No acute fracture. Soft tissues: Unremarkable. IMPRESSION: No acute findings.
--- NOTE | 2024-09-03 21:04 | CT_ITS ---
PROCEDURE INFORMATION: Exam: CTA Head With Contrast, Arteriography Exam date and time: 09/03/2024 9:23 PM Age: 84 years old Clinical indication: Injury or trauma; Fall; Additional info: Trauma, critical injury suspected TECHNIQUE: Imaging protocol: Computed tomographic angiography of the head with contrast. Exam focused on the arteries. 3D rendering (Not supervised by radiologist): MIP and/or 3D reconstructed images were created by the technologist. Radiation optimization: All CT scans at this facility use at least one of these dose optimization techniques: automated exposure control; mA and/or kV adjustment per patient size (includes targeted exams where dose is matched to clinical indication); or iterative reconstruction. Contrast material: ISOVUE; Contrast volume: 118 ml; Contrast route: INTRAVENOUS (IV); COMPARISON: CT ANGIO HEAD 09/03/2024 9:23 PM FINDINGS: ANTERIOR CIRCULATION: Right internal carotid artery: Intracranial segment is patent with no significant stenosis. No aneurysm. Right middle cerebral artery: No occlusion or significant stenosis. No aneurysm. Right anterior cerebral artery: No occlusion or significant stenosis. No aneurysm. Left internal carotid artery: Intracranial segment is patent with no significant stenosis. No aneurysm. Left middle cerebral artery: No occlusion or significant stenosis. No aneurysm. Left anterior cerebral artery: No occlusion or significant stenosis. No aneurysm. POSTERIOR CIRCULATION: Right vertebral artery: No occlusion or significant stenosis. No aneurysm. Left vertebral artery: No occlusion or significant stenosis. No aneurysm. Basilar artery: No occlusion or significant stenosis. No aneurysm. Right posterior cerebral artery: No occlusion or significant stenosis. No aneurysm. Left posterior cerebral artery: No occlusion or significant stenosis. No aneurysm. Brain: No definite mass, mass effect, or midline shift. Cerebral ventricles: No ventriculomegaly. Bones/joints: Unremarkable. No acute fracture. Soft tissues: Unremarkable. IMPRESSION: No large vessel stenosis or occlusion.
--- NOTE | 2024-09-03 21:04 | CT_ITS ---
PROCEDURE INFORMATION: Exam: CTA Neck With Contrast Exam date and time: 09/03/2024 9:23 PM Age: 84 years old Clinical indication: Injury or trauma; Fall; Additional info: Trauma, critical injury suspected TECHNIQUE: Imaging protocol: Computed tomographic angiography of the neck with contrast. Exam focused on the cervical segments of the vasculature. 3D rendering (Not supervised by radiologist): MIP and/or 3D reconstructed images were created by the technologist. Radiation optimization: All CT scans at this facility use at least one of these dose optimization techniques: automated exposure control; mA and/or kV adjustment per patient size (includes targeted exams where dose is matched to clinical indication); or iterative reconstruction. Contrast material: ISOVUE; Contrast volume: 118 ml; Contrast route: INTRAVENOUS (IV); COMPARISON: CT CERVICAL SPINE WO CON 09/03/2024 9:18 PM FINDINGS: Right common carotid artery: No stenosis. No dissection or occlusion. Right internal carotid artery: No stenosis of the extracranial segment. No dissection or occlusion. Right external carotid artery: No occlusion or stenosis of the origin. Left common carotid artery: No stenosis. No dissection or occlusion. Left internal carotid artery: No stenosis of the extracranial segment. No dissection or occlusion. Left external carotid artery: No occlusion or stenosis of the origin. Right vertebral artery: No stenosis. No dissection or occlusion. Left vertebral artery: No stenosis. No dissection or occlusion. Soft tissues: Normal. No significant soft tissue swelling. Bones/joints: No acute fracture. IMPRESSION: No stenosis or occlusion. REFERENCES: NASCET CRITERIA. The degree of stenosis in the cervical segment of the internal carotid artery is based on NASCET criteria. Normal is no stenosis. Mild is less than 50% stenosis. Moderate is 50-69% stenosis. Severe is 70% to 99% stenosis. Total occlusion is no detectable patent lumen.
--- NOTE | 2024-09-03 21:04 | CT_ITS ---
PROCEDURE INFORMATION: Exam: CT Lumbar Spine Without Contrast Exam date and time: 09/03/2024 9:18 PM Age: 84 years old Clinical indication: Injury or trauma; Fall; Additional info: Trauma, critical injury suspected TECHNIQUE: Imaging protocol: Computed tomography of the lumbar spine without contrast. Radiation optimization: All CT scans at this facility use at least one of these dose optimization techniques: automated exposure control; mA and/or kV adjustment per patient size (includes targeted exams where dose is matched to clinical indication); or iterative reconstruction. COMPARISON: CT THORACIC SPINE WO CON 09/03/2024 9:18 PM FINDINGS: Bones/joints: Scoliosis convex to the right. Mild superior endplate deformity of L1; age indeterminate sagittal image 6/32. Diffuse osteopenia. Subtle fractures may be missed. 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 Severe facet arthropathy L5-S1. Vasculature: The aorta demonstrates severe atherosclerotic calcification and ectasia. Soft tissues: Unremarkable. IMPRESSION: 1. Scoliosis convex to the right. 2. Mild superior endplate deformity of L1; age indeterminate sagittal image 6/32. MRI may be helpful. 3. Diffuse osteopenia. Subtle fractures may be missed. 4. 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 5. The aorta demonstrates severe atherosclerotic calcification and ectasia. 6. Severe facet arthropathy L5-S1.
--- NOTE | 2024-09-03 21:04 | CT_ITS ---
PROCEDURE INFORMATION: Exam: CT Head Without Contrast Exam date and time: 09/03/2024 9:07 PM Age: 84 years old Clinical indication: Injury or trauma; Fall; Additional info: Trauma, critical injury suspected TECHNIQUE: Imaging protocol: Computed tomography of the head without contrast. Radiation optimization: All CT scans at this facility use at least one of these dose optimization techniques: automated exposure control; mA and/or kV adjustment per patient size (includes targeted exams where dose is matched to clinical indication); or iterative reconstruction. COMPARISON: No relevant prior studies available. FINDINGS: Brain: Atrophy and chronic small vessel ischemic changes. No hemorrhage. No mass effect or midline shift. Cerebral ventricles: No ventriculomegaly. Paranasal sinuses: Visualized sinuses are unremarkable. No fluid levels. Mastoid air cells: Visualized mastoid air cells are well aerated. Bones: Unremarkable. No acute fracture. Soft tissues: Unremarkable. IMPRESSION: Chronic changes in the brain but no acute intracranial abnormality.
--- NOTE | 2024-09-03 21:06 | ED_ITS ---
Discharge Plan Disposition Patient Disposition: Xfer [facility] Condition: Good Chief Complaint: Trauma Alert Prescriptions Prescriptions: No Action fenofibrate nanocrystallized 145 mg tablet 160 mg PO DAILY metoprolol succinate 50 mg tablet extended release 24 hr 25 mg PO DAILY furosemide 20 mg tablet 20 mg PO DAILY levothyroxine [Synthroid] 125 mcg tablet 125 mcg PO DAILY calcium carbonate-vitamin D3 [Calcium 600 + D(3)] 600 mg calcium- 200 unit capsule 1 cap PO DAILY warfarin [Coumadin] 1 mg tablet 1 mg PO .Wednesdays hydroxyzine pamoate 25 mg capsule 25 mg PO QHS PRN (Reason: Sleep) Patient Comments: TAKE ONE CAPSULE BY MOUTH EVERY DAY AT BEDTIME NEEDED warfarin 1 mg tablet 0.5 mg PO .all other days Rx Instructions: all other days except Wednesdays colestipol 1 gram tablet 2 g PO BID Qty: 120 5RF diphenoxylate-atropine [Lomotil] 2.5-0.025 mg tablet 1 tab PO TID Qty: 50 2RF Rx Instructions: Please take 1 tablet p.o. 3 times daily diphenoxylate-atropine [Lomotil] 2.5-0.025 mg tablet 1 tab PO TID Qty: 40 0RF Rx Instructions: Please take 1 tablet p.o. 3 times daily as needed spironolactone 25 mg tablet See Rx Instructions .ROUTE .COMPLEX Qty: 90 2RF Dose Instruction: TAKE 1 TABLET EVERY MORNING FOR BREATHING PROBLEMS Rx Instructions: TAKE 1 TABLET EVERY MORNING FOR BREATHING PROBLEMS gqxvjqisa-kgvpc-e.salicy-menth 2.5-2.5-30-10 % cream 1 applic topical TID-QID PRN (Reason: hemorrhoids) Qty: 208 0RF colestipol [Colestid] 1 gram tablet 2 g PO .Nightly Qty: 60 11RF Rx Instructions: Please take 2 tablets p.o. nightly budesonide 9 mg tablet,delayed and ext.release 9 mg PO DAILY Qty: 90 1RF Premarin 0.625 mg/gram cream 0.3125 mg vaginal .twice weekly Qty: 30 2RF Rx Instructions: apply a blueberry sized amount into the vagina twice weekly multivitamin 1 EACH tablet 1 each PO DAILY alendronate 70 MG tablet 70 mg PO WEEKLY Referrals Follow up/Referrals: Dillon Mcmahan MD [Primary Care Provider] - See instructions Activity Restrictions/Add. Instructions Additional Instructions/Restrictions: Please follow up with your primary care provider in 2-3 days. Please return to ED if your symptoms worsen, change in location, change in severity, new symptoms develop or if you become concerned for your health. Clinical Impressions Clinical Impression: Fall, CHI (closed head injury), Anticoagulated on Coumadin Print Language Print Language: Georgian Discharge ED Provider: Sharan Bull General Adult HPI General Chief complaint: Trauma Alert Stated complaint: Fall Time Seen by Provider: 09/03/24 21:03 History of Present Illness HPI narrative: Patient is an 84-year-old female with history of A-fib on Coumadin, dementia. She is presenting today after a fall and head strike. The fall was unwitnessed. Reportedly, no seizure-like activity, patient was alert and interactive immediately afterwards. She is denying any complaints right now apart from some abdominal pain which is new. She has acute on chronic neck and back pain. She is able to move all extremities, denying any numbness weakness or tingling. Arrives as a trauma alert secondary to head strike. She is alert and oriented and GCS 15 for me Related Data Home Medications ?Medication ?Instructions ?Recorded ?Confirmed calcium 600 mg (as 1 cap PO DAILY Supplement 11/06/17 09/03/24 carbonate)-vitamin D3 5 mcg (200 unit) capsule (Calcium 600 + D(3)) alendronate 70 mg tablet 70 mg PO WEEKLY OSTEOPOROSIS 03/08/19 09/03/24 multivitamin 1 each PO DAILY Supplement 03/08/19 09/03/24 hydroxyzine pamoate 25 mg capsule 25 mg PO QHS PRN Sleep 08/22/19 09/03/24 fenofibrate nanocrystallized 145 160 mg PO DAILY lipids 03/10/23 09/03/24 mg tablet metoprolol succinate 50 mg 25 mg PO DAILY blood 03/10/23 09/03/24 tablet,extended release 24 hr pressure/heart rate furosemide 20 mg tablet 20 mg PO DAILY 06/11/23 09/03/24 levothyroxine 125 mcg tablet 125 mcg PO DAILY 01/06/24 09/03/24 (Synthroid) warfarin 1 mg tablet 0.5 mg PO .all other days 01/27/24 09/03/24 warfarin 1 mg tablet (Coumadin) 1 mg PO .Wednesdays Blood thinner 01/27/24 09/03/24 Previous Rx's ?Medication ?Instructions ?Recorded spironolactone 25 mg tablet See Rx Instructions .Route 01/04/24 .COMPLEX #90 tabs diphenoxylate-atropine 2.5 1 tab PO TID #50 tabs 05/10/24 mg-0.025 mg tablet (Lomotil) diphenoxylate-atropine 2.5 1 tab PO TID #40 tabs 05/11/24 mg-0.025 mg tablet (Lomotil) lidocaine 2.5 %-prilocaine 2.5% 1 applic topical TID-QID PRN 05/12/24 and m.salicy 30 %-menth 10 % top hemorrhoids #208 grams cream colestipol 1 gram tablet (Colestid) 2 g (2 x 1 gram) PO .Nightly #60 05/17/24 tabs colestipol 1 gram tablet 2 g (2 x 1 gram) PO BID #120 tabs 05/24/24 budesonide 9 mg tablet,delayed and 9 mg PO DAILY #90 ea 06/21/24 extended release conjugated estrogens 0.625 mg/gram 0.3125 mg vaginal .twice weekly 08/19/24 vaginal cream (Premarin) HORMONE REPLACEMENT #30 grams Allergies Allergy/AdvReac Type Severity Reaction Status Date / Time linezolid (From Zyvox) Allergy Intermediate Rash Verified 06/07/24 13:56 [facility] Disclaimer: The information contained in this section may have been updated after the patient was seen, as this information can be updated by other users. 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 current occupational exposures/hazards: No caffeine: No Have you lived/traveled outside US in past 30 days?: No Contact w/someone who lives/traveled outside US past 30 days?: No Exposure to someone with infectious disease in past 14 days?: No Do you have a fever (greater than 100.4 F or 38 C)?: No Have you tested positive for COVID-19: No Exposed to someone with COVID-19 in past 14 days?: No Do you have a sore throat?: No Do you have a cough?: No Do you have any weakness?: No Do you have any diarrhea?: No Are you experiencing any unusual bleeding?: No Do you have any muscle aches/pain?: No Do you have any abdominal pain?: No Are you experiencing loss of taste or smell?: No Other Medical History Have you received the Flu Vaccine for this season: Yes Have you received the Pneumonia Vaccine: Yes ROS Obtained: Yes All systems reviewed & no additional complaints except as documented Physical Exam General General appearance: alert and in no apparent distress Head Head exam: normocephalic and other (4 x 4 centimeter ecchymoses over the forehead without obvious step-off or deformity. No bleeding) Eye Eye exam: Present PERRL and EOMI ENT ENT exam: Present normal oropharynx Neck Neck exam: Present full ROM and trachea midline Chest Chest inspection: Present symmetric chest wall rise Respiratory Respiratory exam: Present normal lung sounds bilaterally; Absent stridor Cardiovascular Cardiovascular exam: Present regular rate and normal rhythm Abdominal Exam Abdominal exam: Present soft and tenderness (Diffuse no peritoneal signs); Absent distention Extremities Exam Extremities exam: Present full ROM Neurological Exam Neurological exam: Present alert and oriented X3 Psychiatric Psychiatric exam: Present normal mood Skin Skin exam: Present warm and dry Medical Decision Making Medical Records Screening: Per USPSTF and CDC recommendations, given the prevalence of disease in our region, it is our hospital?s policy to screen for HIV and viral Hepatitis for all patients aged 18 and over and those with ongoing risk factors. Clement Inquiry Pt receiving controlled substance: No Vital Signs: 09/03/24 20:55 09/03/24 21:04 09/03/24 21:46 Temperature 97.9 F 97.9 F Temperature Source Oral Oral Pulse Rate 68 Pulse Rate [Right Radial] 91 H 91 H Respiratory Rate 18 16 13 Blood Pressure 115/66 Blood Pressure [Right Arm] 106/78 L 106/78 L Blood Pressure Mean [Right Arm] 87 87 Blood Pressure Source [Right Arm] Manual Cuff/ Auscultation Manual Cuff/ Auscultation Blood Pressure Position [Right Arm] Supine Supine 02 Sat by Pulse Oximetry 96 98 97 Oxygen Delivery Method Room Air Room Air 09/03/24 22:00 Temperature Temperature Source Pulse Rate 68 Pulse Rate [Right Radial] Respiratory Rate 15 Blood Pressure 93/64 L Blood Pressure [Right Arm] Blood Pressure Mean [Right Arm] Blood Pressure Source [Right Arm] Blood Pressure Position [Right Arm] 02 Sat by Pulse Oximetry 97 Oxygen Delivery Method Lab Data Lab Results 09/03/24 20:38: WBC 11.2 H, RBC 5.51 H, Hgb 16.5 H, Hct 49.9 H, MCV 90.6, MCH 29.9, MCHC 33.1, RDW 14.6, Plt Count 309, MPV 10.1, Neut % (Auto) 71.3, Lymph % (Auto) 22.1, [place] % (Auto) 5.2, Eos % (Auto) 0.6, Baso % (Auto) 0.4, Neut # (Auto) 8.0 H, Lymph # (Auto) 2.5, [place] # (Auto) 0.6, Eos # (Auto) 0.1, Baso # (Auto) 0.0, PT 26.4 H, INR 2.64 H, APTT 39.3 H, Sodium 132 L, Potassium 4.6, Chloride 100, Carbon Dioxide 22, Anion Gap 14.6, BUN 27 H, Creatinine 1.20 H, Estimated Creat Clear 33, Estimated GFR 43 L, Est GFR ( Amer) 52 L, G lucose 102 H, Calcium 9.9, Total Bilirubin 0.5, AST 42 H, ALT 20, Alkaline Phosphatase 118, Troponin I < 0.01, Total Protein 7.5, Albumin 4.1, Globulin 3.4 H, Albumin/Globulin Ratio 1.2, Lipase 263 09/03/24 20:38 09/03/24 20:38 Orders (Tests/Meds): ED MEDICATIONS Generic Name Dose Route Start Last Admin Trade Name Freq PRN Reason Stop Dose Admin Sodium Chloride 10 ml 09/03/24 21:03 Sodium Chloride 0.9% 10ml Flush Syringe IV 10/03/24 21:02 NEEDED PRN Maintain IV Site Sodium Chloride 10 ml 09/03/24 21:45 09/03/24 21:46 Sodium Chloride 0.9% 10ml Syr (Rad Only) IV 10/03/24 21:44 10 ml NEEDED PRN Administration Maintain IV Site Discontinued Medications Generic Name Dose Route Start Last Admin Trade Name Freq PRN Reason Stop Dose Admin Acetaminophen 1,000 mg 09/03/24 21:03 09/03/24 21:43 Acetaminophen 1,000mg/100ml Vial IV 09/03/24 21:04 1,000 mg ONCE ONE Administration Iopamidol 190 ml 09/03/24 21:45 09/03/24 21:46 Iopamidol-370 (76%);100ml Bottle IV 09/03/24 21:46 190 ml ONCE ONE Administration Sodium Chloride 100 ml 09/03/24 21:45 09/03/24 21:46 0.9 % Sodium Chloride 50 Ml Vial IV 09/03/24 21:46 100 ml ONCE ONE Administration ORDERS Category Date Time Status CT angio abdomen pelvis Stat Cat Scan 09/03/24 21:[address] angio chest - dissection Stat Cat Scan 09/03/24 21:[address] angio head Stat Cat Scan 09/03/24 21:[address] angio neck Stat Cat Scan 09/03/24 21:[address] cervical spine wo con Stat Cat Scan 09/03/24 21:[address] head/brain wo con Stat Cat Scan 09/03/24 21:[address] lumbar spine wo con Stat Cat Scan 09/03/24 21:[address] thoracic spine wo con Stat Cat Scan 09/03/24 21:04 Completed XR chest portable Stat Exams 09/03/24 21:04 Completed XR knee RT 3V Stat Exams 09/03/24 21:12 Completed XR pelvis 1-2V Stat Exams 09/03/24 21:04 Completed Activated Partial Thrombo Time Stat Lab 09/03/24 20:38 Completed Complete Blood Count Auto Diff Stat Lab 09/03/24 20:38 Completed Comprehensive Metabolic Panel Stat Lab 09/03/24 20:38 Completed Lipase Stat Lab 09/03/24 20:38 Completed Prothrombin Time INR Stat Lab 09/03/24 20:38 Completed Troponin I Q3H Lab 09/04/24 00:15 Ordered Troponin I Q3H Lab 09/04/24 03:15 Ordered Troponin I Stat Lab 09/03/24 20:38 Completed Medical Decision Narrative: In summary, this 84-year-old female presents to the emergency department today with fall, trauma alert. On initial evaluation patient is afebrile, hemodynamically stable and in no acute distress. On exam, she is warm and well- perfused. Her airway is intact, bilateral breath sounds, full pulses in all extremities. She has ecchymoses over her forehead, but no obvious step-offs or deformities along the skull. No bleeding from the ears. Pupils are ground reactive. Completely neurologically intact with cranial nerves II through XII intact and motor and sensory in upper and lower extremities intact. She has some mild tenderness in her abdomen. Has diffuse spinal midline tenderness, questionable of acuity. Has an abrasion over her right knee. But again neurovascular intact distally.. Differential diagnosis includes but is not limited to ICH, SDH, fracture, dislocation with sprain, strain, neurovascular compromise, intra-abdominal bleeding, aortic dissection. Based on these concerns, I ordered full trauma scans and trauma labs.. I attempted a [id number] ultrasound for an E fast, however patient's body habitus was limited and she was not hypotensive, so E-FAST was deferred. I reviewed prior records including. ECG personally interpreted demonstrates A-fib with rate controlled, some T wave inversions in lead II, aVF. Some ST elevation in aVR, but significantly limited by artifact, will obtain repeat. Patient not complaining of any chest pain right now.. Patient received Tylenol IV for treatment. Labs personally reviewed demonstrate no evidence of anemia, mild leukocytosis to 11, favored to be reactive. INR therapeutic at 2.6, mild elevation in creatinine not acutely actionable CKD with a creatinine 1.2. Troponin negative, lipase negative.,. XR personally interpreted demonstrates no fracture or dislocation of the knee, no acute intrathoracic process of the chest, no open book pelvic fracture on the pelvis. CT imaging personally interpreted demonstrate significant ectasia of the aorta, chronic, acutely actionable. No acute intracranial abnormality. No evidence of pneumothorax or rib fractures. There are chronic findings in the spine including a T6 wedge compression deformity with significant height loss. She is focally tender over that area, however I had extensive discussion with son-in-law and CARMEN Aguilar who reports that she has had thoracic back pain for some time and believes this to be chronic. Furthermore, within her goals of care, she does not wish to have any surgical intervention. I brought up the possibility of bracing, however she is ambulatory about the emergency department here and is not in significant pain on reassessment, so this is favored to not necessarily be necessary, this is made aware to family and they are amenable to following up outpatient. I consider transfer to [facility] and consultation with spine service, however it is not within patient's goals of care at this time, so given that there is no acute abnormalities, will transfer back to [facility]. On reassessment patient reports improvement in symptoms she is ambulatory about the emergency department and tolerating oral intake. Is back to her neurologic baseline.. Medical care is complicated by the fact that she is on Coumadin for A-fib. Of note, social determinants of health include poor health literacy. At this time it was felt that the patient was safe to be discharged home. The patient was in agreement with this plan. The patient was given strict return precautions prior to being discharged from the emergency department. Critical Care Critical Care Time Critical Care Time: Yes Attestation: On 09/03/24, the high probability of a clinically significant, sudden or life threatening deterioration of the following system(s) required my full and direct attention, intervention and personal management. The time I documented below is in addition to time spent performing reported procedures but includes the following listed in this critical care notation. Total Time Total Critical Care Time: 35
--- NOTE | 2024-09-03 21:12 | XR_ITS ---
PROCEDURE INFORMATION: Exam: XR Right Knee Exam date and time: 09/03/2024 9:36 PM Age: 84 years old Clinical indication: Pain; Knee; Right; Additional info: R knee ttp TECHNIQUE: Imaging protocol: Radiologic exam of the right knee. Views: 3 views. COMPARISON: No relevant prior studies available. FINDINGS: Bones/joints: Normal. Soft tissues: Normal. IMPRESSION: No acute findings.
[2024-09-03 21:36] LABS: Basophils % 0.4 % (0.1-2.0); Eosinophils # 0.1 K/mm3 (0.0-0.4); Eosinophils % 0.6 % (0.1-12.0); Hematocrit 49.9 % (37.0-47.0); Hemoglobin 16.5 g/dL (12.2-16.2); Lymphocytes # 2.5 K/mm3 (0.7-4.5); Lymphocytes % 22.1 % (10-50); Mean Corpuscular HGB Conc 33.1 g/dL (31.8-35.4); Mean Corpuscular Hemoglobin 29.9 pg (27.0-31.2); Mean Corpuscular Volume 90.6 fl (81-99); Mean Platelet Volume 10.1 fl (7.4-10.4); Monocytes # 0.6 K/mm3 (0.1-1.0); Monocytes % 5.2 % (1.7-9.3); Neutrophils % 71.3 % (37.0-80.0); Platelet Count 309 K/mm3 (142-424); Red Blood Count 5.51 M/mm3 (4.20-5.40); Red Cell Distribution Width 14.6 % (11.5-17.5); White Blood Count 11.2 K/mm3 (4.8-10.8)
[2024-09-03 21:43] LABS: Activated Partial Thrombo Time 39.3 seconds (22.5-28.5); INR 2.64 (0.9-1.1); Prothrombin Time 26.4 seconds (9.2-12.1)
[2024-09-03] MEDS: ACETAMINOPHEN 1,000MG/100ML VIAL 1000 MG IV (21:43)
[2024-09-03 21:46] VITALS: BP 115/66; PULSE 68; RESP 13; O2SAT 97
[2024-09-03] MEDS: SODIUM CHLORIDE 0.9% 10ML SYR (RAD ONLY) 10 ML IV (21:46)
[2024-09-03] MEDS: 0.9 % SODIUM CHLORIDE 50 ML VIAL 100 ML IV (21:46)
[2024-09-03] MEDS: IOPAMIDOL-370 (76%);100ML BOTTLE 190 ML IV (21:46)
[2024-09-03 21:49] LABS: Albumin Level 4.1 g/dl (3.5-5.0); Chloride 100 mmol/L (98-107)
[2024-09-03 21:50] LABS: Potassium 4.6 mmoL/L (3.5-5.1); Sodium 132 mmol/L (136-145)
[2024-09-03 21:52] LABS: Alanine Aminotransferase 20 U/L (12-78); Anion Gap 14.6 mEq/L (5-15); Aspartate Amino Transferase 42 U/L (14-36); Blood Urea Nitrogen 27 mg/dl (7-17); Carbon Dioxide 22 mmol/L (22.0-30.0); Creatinine Clearance Estimated 33 mL/min (50-200); Estimated Glomerular Filt Rate 43 ml/min (>60); GFR (African American) 52 ML/MIN (>60)
[2024-09-03 21:53] LABS: Albumin/Globulin Ratio 1.2 (1.1-1.8); Alkaline Phosphatase 118 U/L (38-126); Bilirubin,Total 0.5 mg/dl (0.2-1.3); Calcium 9.9 mg/dl (8.4-10.2); Globulin 3.4 g/dL (1.3-3.2); Glucose 102 mg/dl (74-100); Lipase 263 U/L (23-300); Total Protein,Serum 7.5 g/dl (6.3-8.2)
[2024-09-03 22:00] VITALS: BP 93/64; PULSE 68; RESP 15; O2SAT 97
[2024-09-03 22:07] LABS: Troponin I < 0.01 ng/ml (0.00-0.034)
--- NOTE | 2024-09-03 22:14 | ECG_ITS ---
APPROVED REPORT Exam: Resting ECG HR:97 bpm ECG Measurements Heart Rate 97 AXES QRSd 89 QRS 78 QT 323 T 262 QTc 378 Conclusion ATRIAL FIBRILLATION WITH ABERRANT CONDUCTION OR VENTRICULAR PREMATURE COMPLEXES INDETERMINATE AXIS ST DEVIATION AND MODERATE T-WAVE ABNORMALITY, CONSIDER ANTEROLATERAL ISCHEMIA [-0.1+ mV T-WAVE IN V3-V6] ST DEVIATION AND MODERATE T-WAVE ABNORMALITY, CONSIDER INFERIOR ISCHEMIA [-0.1+ mV T-WAVE IN II/aVF] ABNORMAL ECG UNCONFIRMED REPORT Electronically signed by : BALDEMAR COLLINS, 09/04/2024 06:38:52
--- NOTE | 2024-09-03 22:15 | PC.NURSE ---
Patient resting in room
--- NOTE | 2024-09-03 23:06 | PC.NURSE ---
Report given to Cindy at [facility]
[2024-09-03 23:07] VITALS: BP 105/74; PULSE 90; RESP 16; TEMP 36.6; O2SAT 98
--- NOTE | 2024-09-04 00:38 | PC.NURSE ---
EMS here to get patient
== END 2024-09-04 00:38 ==
PROVIDERS: Emergency Provider Emergency Medicine; PCP Internal Medicine Adolescent Medicine
DX: S09.90XA Unspecified injury of head, initial encounter (principal); T14.90XA Injury, unspecified, initial encounter; R10.9 Unspecified abdominal pain; M54.2 Cervicalgia; M54.9 Dorsalgia, unspecified; G89.29 Other chronic pain; Z79.01 Long term (current) use of anticoagulants; W18.30XA Fall on same level, unspecified, initial encounter; Y93.89 Activity, other specified; Y92.9 Unspecified place or not applicable
CPT/HCPCS: 70450; 70496; 70498; 71045; 71275; 72125; 72128; 72131; 72170; 73562; 74174; 80053; 83690; 84484; 85025; 85610; 85730; 93005; 96374; 99291; J0131; Q9967

== ENCOUNTER 2024-10-08 03:35 | Emergency (ER) | payer OTHER, MEDICARE, SELFPAY ==
--- NOTE | 2024-10-08 03:24 | XR_ITS ---
PROCEDURE INFORMATION: Exam: XR Chest Exam date and time: 10/08/2024 3:30 AM Age: 84 years old Clinical indication: Injury or trauma; Fall; Blunt trauma (contusions or hematomas) TECHNIQUE: Imaging protocol: Radiologic exam of the chest. Views: 1 view. COMPARISON: CT ANGIO CHEST 09/03/2024 9:32 PM FINDINGS: Lungs: No focal consolidation. Pleural spaces: Unremarkable. No pleural effusion. No pneumothorax. Heart/Mediastinum: Unremarkable. No cardiomegaly. Vasculature: Opacity at the medial right upper lobe was present on the prior study and may represent prominent vessels. Bones/joints: Median sternotomy. No definite rib fracture. Degenerative changes in the acromioclavicular joint and glenohumeral joint. Intraperitoneal space: Surgical clips in the right upper quadrant IMPRESSION: 1. No focal consolidation. 2. No definite rib fracture.
--- NOTE | 2024-10-08 03:24 | XR_ITS ---
PROCEDURE INFORMATION: Exam: XR Pelvis Exam date and time: 10/08/2024 3:30 AM Age: 84 years old Clinical indication: Injury or trauma; Fall; Blunt trauma (contusions or hematomas); Bilateral; Pelvic region TECHNIQUE: Imaging protocol: Radiologic exam of the pelvis. Views: 1 or 2 view. COMPARISON: CT ANGIO ABDOMEN PELVIS 09/03/2024 9:32 PM FINDINGS: Bones/joints: Degenerative changes in both hips and sacroiliac joints. There is no evidence of acute fracture.There is no evidence of malalignment or dislocation. Soft tissues: Unremarkable. IMPRESSION: There is no evidence of acute fracture.There is no evidence of malalignment or dislocation.
--- NOTE | 2024-10-08 03:24 | CT_ITS ---
PROCEDURE INFORMATION: Exam: CT Head Without Contrast Exam date and time: 10/08/2024 3:43 AM Age: 84 years old Clinical indication: Injury or trauma; Fall; Blunt trauma (contusions or hematomas) TECHNIQUE: Imaging protocol: Computed tomography of the head without contrast. Radiation optimization: All CT scans at this facility use at least one of these dose optimization techniques: automated exposure control; mA and/or kV adjustment per patient size (includes targeted exams where dose is matched to clinical indication); or iterative reconstruction. COMPARISON: No relevant prior studies available. FINDINGS: Brain: RIGHT paramedian posterosuperior falx and RIGHT tentorial acute subdural hematoma measuring approximately 4 mm in maximum thickness. No mass effect or midline shift. Underlying moderately advanced chronic microvascular ischemic disease without acute intraparenchymal hemorrhage and no obvious acute ischemic stroke. Cerebral ventricles: Ventriculomegaly with mildly dilated/prominent sulci and basal cisterns. Paranasal sinuses: No significant mucoperiosteal thickening in the visualized paranasal sinuses. Mastoid air cells: No mastoid effusion. Bones: Visualized skull bones are grossly normal. Soft tissues: Small RIGHT posterolateral scalp hematoma. Atherosclerotic calcification of the intracranial internal carotid/vertebral arteries. IMPRESSION: 1. Acute RIGHT paramedian falx and tentorial subdural hematoma without mass effect or midline shift. 2. Underlying moderately advanced chronic microvascular ischemic disease and generalized atrophy. 3. 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 COMMENTS: Suboptimal study due to motion artifact.
--- NOTE | 2024-10-08 03:24 | CT_ITS ---
PROCEDURE INFORMATION: Exam: CT Cervical Spine Without Contrast Exam date and time: 10/08/2024 3:45 AM Age: 84 years old Clinical indication: Injury or trauma; Fall; Blunt trauma TECHNIQUE: Imaging protocol: Computed tomography of the cervical spine without contrast. Radiation optimization: All CT scans at this facility use at least one of these dose optimization techniques: automated exposure control; mA and/or kV adjustment per patient size (includes targeted exams where dose is matched to clinical indication); or iterative reconstruction. COMPARISON: CT CERVICAL SPINE WO CON 09/03/2024 9:18 PM FINDINGS: Bones: Coarse bony trabecular pattern suggestive of diffuse osteopenia. Loss of normal curvature of the spine with degenerative spondylolisthesis. No evidence of acute compression fracture or deformity. No discernible displaced fracture involving the vertebral bodies or their posterior elements. Discs/Spinal canal/Neural foramina: Moderately advanced chronic degenerative changes in the cervical spine. Lungs: NA Soft tissues: Pre-and paravertebral soft tissues are grossly normal. Atherosclerotic calcification of the carotid arteries. IMPRESSION: Advanced chronic degenerative changes without an acute bony cervical spine injury or abnormality. COMMENTS: Recommend followup with MRI if clinically suspicion for discoligamentous/soft tissue or cord abnormality.
[2024-10-08 03:35] VITALS: BP 113/77; PULSE 90; RESP 18; TEMP 36.7; O2SAT 96; BMI 23.9
--- NOTE | 2024-10-08 03:36 | [facility].EDGENADL ---
Discharge Plan Disposition Patient Disposition: er [facility] Prescriptions Prescriptions: No Action fenofibrate nanocrystallized 145 mg tablet 160 mg PO DAILY metoprolol succinate 50 mg tablet extended release 24 hr 25 mg PO DAILY furosemide 20 mg tablet 20 mg PO DAILY levothyroxine [Synthroid] 125 mcg tablet 125 mcg PO DAILY calcium carbonate-vitamin D3 [Calcium 600 + D(3)] 600 mg calcium- 200 unit capsule 1 cap PO DAILY warfarin [Coumadin] 1 mg tablet 1 mg PO .Wednesdays hydroxyzine pamoate 25 mg capsule 25 mg PO QHS PRN (Reason: Sleep) Patient Comments: TAKE ONE CAPSULE BY MOUTH EVERY DAY AT BEDTIME NEEDED warfarin 1 mg tablet 0.5 mg PO .all other days Rx Instructions: all other days except Wednesdays diphenoxylate-atropine [Lomotil] 2.5-0.025 mg tablet 1 tab PO TID Qty: 50 2RF Rx Instructions: Please take 1 tablet p.o. 3 times daily diphenoxylate-atropine [Lomotil] 2.5-0.025 mg tablet 1 tab PO TID Qty: 40 0RF Rx Instructions: Please take 1 tablet p.o. 3 times daily as needed spironolactone 25 mg tablet See Rx Instructions .ROUTE .COMPLEX Qty: 90 2RF Dose Instruction: TAKE 1 TABLET EVERY MORNING FOR BREATHING PROBLEMS Rx Instructions: TAKE 1 TABLET EVERY MORNING FOR BREATHING PROBLEMS lssctvgsw-pevnw-n.salicy-menth 2.5-2.5-30-10 % cream 1 applic topical TID-QID PRN (Reason: hemorrhoids) Qty: 208 0RF colestipol [Colestid] 1 gram tablet 2 g PO .Nightly Qty: 60 11RF Rx Instructions: Please take 2 tablets p.o. nightly Premarin 0.625 mg/gram cream 0.3125 mg vaginal .twice weekly Qty: 30 2RF Rx Instructions: apply a blueberry sized amount into the vagina twice weekly budesonide 9 mg tablet,delayed and ext.release 9 mg PO DAILY Qty: 90 1RF colestipol 1 gram tablet 2 g PO BID Qty: 120 5RF Rx Instructions: Take 2 tablets by mouth twice a day multivitamin 1 EACH tablet 1 each PO DAILY alendronate 70 MG tablet 70 mg PO WEEKLY Referrals Follow up/Referrals: Provider,Referral, MD [Primary Care Provider] - See instructions Clinical Impressions Clinical Impression: Acute subdural hematoma, Dementia, Hospice care patient Print Language Print Language: Italian Discharge ED Provider: Josiah Morelos General Adult HPI General Chief complaint: Fall Stated complaint: fall Time Seen by Provider: 10/08/24 03:36 History of Present Illness HPI narrative: 84-year-old female with history of severe dementia, A-fib on chronic warfarin, hospice patient presents from [place] after a fall at her facility. Fall was unwitnessed. She says she landed on her butt. She reports mild headache but denies any other significant pain or tenderness. She is a poor historian. Related Data Home Medications ?Medication ?Instructions ?Recorded ?Confirmed calcium 600 mg (as 1 cap PO DAILY Supplement 11/06/17 09/03/24 carbonate)-vitamin D3 5 mcg (200 unit) capsule (Calcium 600 + D(3)) alendronate 70 mg tablet 70 mg PO WEEKLY OSTEOPOROSIS 03/08/19 09/03/24 multivitamin 1 each PO DAILY Supplement 03/08/19 09/03/24 hydroxyzine pamoate 25 mg capsule 25 mg PO QHS PRN Sleep 08/22/19 09/03/24 fenofibrate nanocrystallized 145 160 mg PO DAILY lipids 03/10/23 09/03/24 mg tablet metoprolol succinate 50 mg 25 mg PO DAILY blood 03/10/23 09/03/24 tablet,extended release 24 hr pressure/heart rate furosemide 20 mg tablet 20 mg PO DAILY 06/11/23 09/03/24 levothyroxine 125 mcg tablet 125 mcg PO DAILY 01/06/24 09/03/24 (Synthroid) warfarin 1 mg tablet 0.5 mg PO .all other days 01/27/24 09/03/24 warfarin 1 mg tablet (Coumadin) 1 mg PO .Wednesdays Blood thinner 01/27/24 09/03/24 Previous Rx's ?Medication ?Instructions ?Recorded spironolactone 25 mg tablet See Rx Instructions .Route 01/04/24 .COMPLEX #90 tabs diphenoxylate-atropine 2.5 1 tab PO TID #50 tabs 05/10/24 mg-0.025 mg tablet (Lomotil) diphenoxylate-atropine 2.5 1 tab PO TID #40 tabs 05/11/24 mg-0.025 mg tablet (Lomotil) lidocaine 2.5 %-prilocaine 2.5% 1 applic topical TID-QID PRN 05/12/24 and mKenziesalicy 30 %-menth 10 % top hemorrhoids #208 grams cream colestipol 1 gram tablet (Colestid) 2 g (2 x 1 gram) PO .Nightly #60 05/17/24 tabs conjugated estrogens 0.625 mg/gram 0.3125 mg vaginal .twice weekly 08/19/24 vaginal cream (Premarin) HORMONE REPLACEMENT #30 grams budesonide 9 mg tablet,delayed and 9 mg PO DAILY #90 ea 09/07/24 extended release colestipol 1 gram tablet 2 g (2 x 1 gram) PO BID #120 tabs 09/07/24 Allergies Allergy/AdvReac Type Severity Reaction Status Date / Time linezolid (From Zyvox) Allergy Intermediate Rash Verified 06/07/24 13:56 [facility] Disclaimer: The information contained in this section may have been updated after the patient was seen, as this information can be updated by other users. Medical History (Updated 10/08/24 @ 05:53 by Josiah Morelos MD) Fecal incontinence Dementia Abdominal varicosities Typical angina TMJ (dislocation of temporomandibular joint) Coronary artery disease JUANITA (obstructive sleep apnea) Abnormal electrocardiography Atypical angina remote computer terminal operator current use of anticoagulant HLD (hyperlipidemia) AICD at end of battery life Hypertensive disorder Chronic atrial fibrillation Surgical History H/O colonoscopy Hx of atrial septal defect repair Family History Other No significant family history Social History Smoking Status: Unknown if ever smoked alcohol intake: current alcohol intake frequency: holidays/special occasions only substance use type: denies use current occupational status: retired Travel in the last 8 weeks: None household members: spouse housing: house current occupation: RETIRED PHARM. current occupational exposures/hazards: No caffeine: No Other Medical History Have you received the Flu Vaccine for this season: Yes Have you received the Pneumonia Vaccine: Yes ROS Obtained: Yes All systems reviewed & no additional complaints except as documented Physical Exam General General appearance: alert and in no apparent distress Head Head exam: atraumatic and normocephalic Eye Eye exam: Present normal appearance, PERRL and EOMI ENT ENT exam: Present normal oropharynx and normal external ear exam Neck Neck exam: Present normal inspection and full ROM Chest Chest inspection: Present normal inspection and symmetric chest wall rise; Absent tenderness Respiratory Respiratory exam: Present normal lung sounds bilaterally; Absent respiratory distress Cardiovascular Cardiovascular exam: Present regular rate and normal rhythm Abdominal Exam Abdominal exam: Present soft; Absent distention, tenderness or guarding Extremities Exam Extremities exam: Present normal inspection; Absent edema or joint swelling Back Exam Back exam: Present normal inspection; Absent tenderness Neurological Exam Neurological exam: Present alert; Absent oriented X3 (Oriented x 2) or motor sensory deficit Psychiatric Psychiatric exam: Present normal affect and normal mood Skin Skin exam: Present warm, dry and normal color Lymphatic Lymphatic Findings: no adenopathy Medical Decision Making Medical Records Medical records reviewed: Yes I reviewed the patient's medical records. Screening: Per USPSTF and CDC recommendations, given the prevalence of disease in our region, it is our hospital?s policy to screen for HIV and viral Hepatitis for all patients aged 18 and over and those with ongoing risk factors. Clement Inquiry Pt receiving controlled substance: No Clement was queried for this patient: No Vital Signs: 10/08/24 03:35 10/08/24 06:06 Temperature 98.1 F 98.2 F Temperature Source Oral Oral Pulse Rate 85 Pulse Rate [Left] 90 Respiratory Rate 18 15 Blood Pressure 90/67 L Blood Pressure [Right Arm] 113/77 Blood Pressure Mean [Right Arm] 89 Blood Pressure Source Automatic Cuff Blood Pressure Position Supine 02 Sat by Pulse Oximetry 96 Oxygen Delivery Method Nasal Cannula Nasal Cannula Oxygen Flow Rate (LPM) 2 2 Lab Data Lab results reviewed: Yes I reviewed the patient's lab results. Lab Results 10/08/24 04:55: WBC 12.5 H, RBC 5.00, Hgb 15.2, Hct 43.7, MCV 87.4, MCH 30.4, MCHC 34.8, RDW 14.4, Plt Count 271, MPV 10.2, Neut % (Auto) 75.7, Lymph % (Auto) 14.3, [place] % (Auto) 7.8, Eos % (Auto) 0.7, Baso % (Auto) 0.6, Neut # (Auto) 9.5 H, Lymph # (Auto) 1.8, [place] # (Auto) 1.0, Eos # (Auto) 0.1, Baso # (Auto) 0.1, PT 14.3 H, INR 1.31 H, APTT 31.9 H, Sodium 131 L, Potassium 3.1 L, Chloride 99, Carbon Dioxide 26, Anion Gap 9.1, BUN 24 H, Creatinine 1.20 H, Estimated Creat Clear 33, Estimated GFR 43 L, Est GFR ( Amer) 52 L, Glucose 101 H, Calcium 9.2, Total Bilirubin 1.0, AST 38 H, ALT 19, Alkaline Phosphatase 118, Total Protein 6.3, Albumin 3.6, Globulin 2.7, Albumin/Globulin Ratio 1.3 10/08/24 04:55 10/08/24 04:55 Orders (Tests/Meds): ED MEDICATIONS Discontinued Medications Generic Name Dose Route Start Last Admin Trade Name Freq PRN Reason Stop Dose Admin Acetaminophen 1,000 mg 10/08/24 03:25 10/08/24 03:52 Acetaminophen 500mg Tab PO 10/08/24 03:26 1,000 mg ONCE ONE Administration ORDERS Category Date Time Status CT cervical spine wo con Stat Cat Scan 10/08/24 03:[address] head/brain wo con Stat Cat Scan 10/08/24 03:24 Completed Chest XR -- portable [XR chest portable] Stat Exams 10/08/24 03:24 Completed Pelvis XR 1-2 views [XR pelvis 1-2V] Stat Exams 10/08/24 03:24 Completed CBC w/Auto Diff [Complete Blood Count Auto Diff] Stat Lab 10/08/24 04:55 Completed CMP [Comprehensive Metabolic Panel] Stat Lab 10/08/24 04:55 Completed INR [Prothrombin Time INR] Stat Lab 10/08/24 04:55 Completed PTT [Activated Partial Thrombo Time] Stat Lab 10/08/24 04:55 Completed Medical Decision Narrative: 84-year-old female with history of severe dementia, chronic A-fib on warfarin, on hospice presents from her nursing facility via EMS for fall. History was obtained via interactive discussion with patient, EMS, family. On arrival, patient is afebrile, hemodynamically stable, satting appropriately on room air alert, interactive, partially oriented, moving all extremities spontaneously. Full physical exam performed and significant for no evidence of trauma on exam Differential includes but is not limited to intracranial trauma intrathoracic trauma intra-abdominal trauma spine trauma extremity trauma.. Workup initiated including CT head, CT C-spine, chest x-ray pelvis x-ray, CBC CMP PTT PT/INR. On re-evaluation, patient [remains afebrile, HD stable.] Laboratory workup independently interpreted by me and significant for INR 1.3, mild leukocytosis, mild hypokalemia.. Imaging independently interpreted by me and significant for acute posterior falx subdural. See radiology read for full review of final results. I had a extensive discussion with the patient's POA, her daughter, as well as her son-in-law who is an emergency physician. They report that she is on hospice and is severely demented, debilitated and is no longer eating. They do not think that pursuing aggressive care such as anticoagulation reversal or transfer for trauma assessment is in the patient's best interest at this time. They request that she be discharged back to her nursing facility. Given patient history, exam and workup, patient's presentation most likely represents acute subdural hematoma on warfarin. Patient was discharged back to her nursing facility in stable condition after discussion with her medical POA. Procedures Risk/Benefits of Procedure(s) Were Explained: Yes Critical Care Critical Care Time Critical Care Time: Yes Attestation: On 10/08/24, the high probability of a clinically significant, sudden or life threatening deterioration of the following system(s) required my full and direct attention, intervention and personal management. The time I documented below is in addition to time spent performing reported procedures but includes the following listed in this critical care notation. Total Time Total Critical Care Time: 40
[2024-10-08] MEDS: ACETAMINOPHEN 500MG TAB 1000 MG PO (03:52)
[2024-10-08 05:05] LABS: Basophils # 0.1 K/mm3 (0-0.2); Basophils % 0.6 % (0.1-2.0); Eosinophils # 0.1 K/mm3 (0.0-0.4); Eosinophils % 0.7 % (0.1-12.0); Hematocrit 43.7 % (37.0-47.0); Hemoglobin 15.2 g/dL (12.2-16.2); Lymphocytes # 1.8 K/mm3 (0.7-4.5); Lymphocytes % 14.3 % (10-50); Mean Corpuscular HGB Conc 34.8 g/dL (31.8-35.4); Mean Corpuscular Hemoglobin 30.4 pg (27.0-31.2); Mean Corpuscular Volume 87.4 fl (81-99); Mean Platelet Volume 10.2 fl (7.4-10.4); Monocytes % 7.8 % (1.7-9.3); Neutrophils # 9.5 K/mm3 (1.8-7.8); Neutrophils % 75.7 % (37.0-80.0); Platelet Count 271 K/mm3 (142-424); Red Cell Distribution Width 14.4 % (11.5-17.5); White Blood Count 12.5 K/mm3 (4.8-10.8)
[2024-10-08 05:11] LABS: Albumin Level 3.6 g/dl (3.5-5.0); Chloride 99 mmol/L (98-107); Potassium 3.1 mmoL/L (3.5-5.1); Sodium 131 mmol/L (136-145)
[2024-10-08 05:14] LABS: Alanine Aminotransferase 19 U/L (12-78); Albumin/Globulin Ratio 1.3 (1.1-1.8); Alkaline Phosphatase 118 U/L (38-126); Anion Gap 9.1 mEq/L (5-15); Aspartate Amino Transferase 38 U/L (14-36); Blood Urea Nitrogen 24 mg/dl (7-17); Carbon Dioxide 26 mmol/L (22.0-30.0); Creatinine Clearance Estimated 33 mL/min (50-200); Estimated Glomerular Filt Rate 43 ml/min (>60); GFR (African American) 52 ML/MIN (>60); Globulin 2.7 g/dL (1.3-3.2); Total Protein,Serum 6.3 g/dl (6.3-8.2)
[2024-10-08 05:15] LABS: Calcium 9.2 mg/dl (8.4-10.2); Glucose 101 mg/dl (74-100)
[2024-10-08 05:17] LABS: Activated Partial Thrombo Time 31.9 seconds (22.8-30.6)
[2024-10-08 05:20] LABS: INR 1.31 (0.9-1.1); Prothrombin Time 14.3 seconds (10.1-12.5)
[2024-10-08 06:06] VITALS: BP 90/67; PULSE 85; RESP 15; TEMP 36.8; O2SAT 97
== END 2024-10-08 06:16 ==
PROVIDERS: Emergency Provider Emergency Medicine
DX: S06.5XAA Traumatic subdural hemorrhage with loss of consciousness status unknown, initial encounter (principal); F03.90 Unspecified dementia, unspecified severity, without behavioral disturbance, psychotic disturbance, mood disturbance, and anxiety; I25.10 Atherosclerotic heart disease of native coronary artery without angina pectoris; W19.XXXA Unspecified fall, initial encounter; R51.9 Headache, unspecified; Z79.01 Long term (current) use of anticoagulants; Z51.5 Encounter for palliative care
CPT/HCPCS: 70450; 71045; 72125; 72170; 80053; 85025; 85610; 85730; 99291